=== PATIENT | male | born 1960 | race African-American/Black ===

== ENCOUNTER 2016-08-25 10:46 | Emergency (ER) | payer OTHER ==
[2016-08-25 10:56] VITALS: BP 156/91; PULSE 69; TEMP 99.4; BMI 25.0
[2016-08-25 11:55] LABS: BASOPHIL 0.4 % (0-2.0); EOSINOPHIL 0.5 % (0-4.5); MCH 27.8 pg (25.7-33.7); MCHC 32.6 g/dl (32.0-35.9); MEAN CELL VOLUME 85.4 fl (80-96); MEAN PLT VOLUME 9.1 fl (7.5-11.1); NEUTROPHILS 54.7 % (42.8-82.8); PLATELET COUNT 209 K/MM3 (134-434); RDW 15.8 % (11.9-15.9); WHITE BLOOD COUNT 5.3 K/mm3 (4.0-10.0)
[2016-08-25 12:08] LABS: INR 1.14 (0.82-1.09); PROTHROMBIN TIME (PATIENT) 12.6 SEC (9.98-11.88)
[2016-08-25 12:51] LABS: ALK PHOS 132 U/L (45-117); ANION GAP 7 (8-16); BILIRUBIN,TOTAL 0.6 mg/dL (0.2-1.0); CALCIUM 9.5 mg/dL (8.5-10.1); CO2 32 mmol/L (21-32); COCKROFT - GAULT 86.09; CREATININE 0.9 mg/dL (0.7-1.3); GLUCOSE,RANDOM 73 mg/dL (74-106); SGOT/AST 24 U/L (15-37); SGPT/ALT 23 U/L (12-78); TOT PROT 7.2 g/dl (6.4-8.2)
--- NOTE | 2016-08-25 12:54 | PDOC ---
History of Present Illness - General History Source: Patient Exam Limitations: No Limitations - History of Present Illness Initial Comments: 08/25/16 13:01 The patient is a 56 year old male, with a significant past medical history of Asthma, COPD, HTN, who presents to the emergency department with rectal bleeding since yesterday. The patient reports bright red blood after straining yesterday. Patient admits he was prescribed Colace however has not been compliant. He denies any abdominal pain, headache, chest pain or dizziness. He denies fever, chills, nausea, vomit, diarrhea. He denies dysuria, frequency, urgency or hematuria. Allergies: NKA Past surgical history: Denies Social history: Current everyday smoker PCP: Dr. Talley <Kymberly Matute - Last Filed: 08/25/16 13:02> <Camille Hills - Last Filed: 08/25/16 18:41> - General Chief Complaint: Rectal Bleed Stated Complaint: RECTAL BLEEDING Time Seen by Provider: 08/25/16 11:17 Past History <Kymberly Matute - Last Filed: 08/25/16 13:02> - Past Medical History Anemia: No Asthma: Yes Cancer: No Cardiac Disorders: No CVA: No COPD: Yes DVT: No Dementia: No Diabetes: No Dialysis: No GI Disorders: No Disorders: No HTN: Yes Hypercholesterolemia: No HIV: No Kidney Stones: No Liver Disease: No Psychiatric Problems: No Seizures: No Thyroid Disease: No Lung CA: No - Surgical History Abdominal Surgery: No Appendectomy: No Cardiac Surgery: No Cholecystectomy: No Gastric Stapling: No GI Surgery: No Lung Surgery: No Neurologic Surgery: No Orthopedic Surgery: Yes (broken jaw 2010) - Psycho/Social/Smoking Cessation Hx Suicidal Ideation: No Smoking History: Current every day smoker Have you smoked in the past 12 months: Yes Number of Cigarettes Smoked Daily: 20 Information on smoking cessation initiated: Yes 'Breaking Loose' booklet given: 08/25/16 Hx Alcohol Use: Yes (SOCIAL) Drug/Substance Use Hx: No Substance Use Type: None Hx Substance Use Treatment: Yes (rehab, [facility]) <Camille Hills - Last Filed: 08/25/16 18:41> - Past Medical History Allergies/Adverse Reactions: Allergies Allergy/AdvReac Type Severity Reaction Status Date / Time No Known Allergies Allergy Verified 08/25/16 10:55 Home Medications: Ambulatory Orders Citalopram Hydrobromide [Celexa -] 20 mg PO DAILY 03/28/14 Ergocalciferol [Drisdol -] 50,000 unit PO Q7D@1000 03/28/14 Fluticasone Propionate [Flovent Diskus] 250 mcg IH DAILY 03/28/14 Methadone [Dolophine -] 20 mg PO DAILY 03/28/14 Oxycodone HCl/Acetaminophen [Percocet 10-325 mg Tablet -] 1 tab PO BID 03/28/14 Cyclobenzaprine HCl [Flexeril -] 10 mg PO HS PRN 06/05/14 Docusate Sodium [Colace -] 100 mg PO BID #60 capsule 08/25/16 Hydrocortisone Acetate [Anusol Hc Suppository -] 25 mg RC BID #28 supp.rect Sennosides [Senna] 8.6 mg PO HS #14 tablet 08/25/16 Review of Systems - Review of Systems Able to Perform ROS?: Yes Comments:: 08/25/16 13:01 GENERAL/CONSTITUTIONAL: No fever or chills. No weakness. HEAD, EYES, EARS, NOSE AND THROAT: No change in vision. No ear pain or discharge. No sore throat. CARDIOVASCULAR: No chest pain or shortness of breath. RESPIRATORY: No cough, wheezing, or hemoptysis. GASTROINTESTINAL: + constipation. + rectal bleeding. No nausea, vomiting, diarrhea. GENITOURINARY: No dysuria, frequency, or change in urination. MUSCULOSKELETAL: No joint or muscle swelling or pain. No neck or back pain. SKIN: No rash NEUROLOGIC: No headache, vertigo, loss of consciousness, or change in strength/ sensation. ENDOCRINE: No increased thirst. No abnormal weight change. HEMATOLOGIC/LYMPHATIC: No anemia, easy bleeding, or history of blood clots. ALLERGIC/IMMUNOLOGIC: No hives or skin allergy. <Kymberly Matute - Last Filed: 08/25/16 13:02> *Physical Exam - Vital Signs Last Vital Signs Temp Pulse Resp BP Pulse Ox 99.4 F 69 20 156/91 96 08/25/16 10:52 08/25/16 10:52 08/25/16 10:52 08/25/16 10:52 08/25/16 10:52 <Kymberly Matute - Last Filed: 08/25/16 13:02> - Vital Signs Last Vital Signs Temp Pulse Resp BP Pulse Ox 99.4 F 69 20 156/91 96 08/25/16 10:52 08/25/16 10:52 08/25/16 10:52 08/25/16 10:52 08/25/16 10:52 - Physical Exam Comments: GENERAL: Awake, alert, and fully oriented, in no acute distress HEAD: No signs of trauma EYES: PERRLA, EOMI, sclera anicteric, conjunctiva clear ENT: Auricles normal inspection, hearing grossly normal, nares patent, oropharynx clear without exudates. Moist mucosa NECK: Normal ROM, supple, no lymphadenopathy, JVD, or masses LUNGS: Breath sounds equal, clear to auscultation bilaterally. No wheezes, and no crackles HEART: Regular rate and rhythm, normal S1 and S2, no murmurs, rubs or gallops ABDOMEN: Soft, nontender, normoactive bowel sounds. No guarding, no rebound. No masses EXTREMITIES: Normal range of motion, no edema. No clubbing or cyanosis. No cords, erythema, or tenderness NEUROLOGICAL: Cranial nerves II through XII grossly intact. Normal speech, normal gait SKIN: Warm, Dry, normal turgor, no rashes or lesions noted. RECTAL: +Internal hemorrhoid, nontender to palpation. Brown stool with streaks of red. <Camille Hills - Last Filed: 08/25/16 18:41> ED Treatment Course - LABORATORY CBC & Chemistry Diagram: 08/25/16 11:40 08/25/16 11:40 - ADDITIONAL ORDERS Additional order review: Laboratory Results 08/25/16 08/25/16 08/25/16 11:40 11:40 11:40 INR Sodium 141 Potassium 4.5 Chloride 102 Carbon Dioxide 32 Anion Gap 7 L BUN 9 Creatinine 0.9 Creat Clearance w eGFR > 60 Random Glucose 73 L D Calcium 9.5 Total Bilirubin 0.6 AST 24 ALT 23 Alkaline Phosphatase 132 H D Total Protein 7.2 Albumin 4.0 Stool Occult Blood Positive Blood Type O POSITIVE Antibody Screen Negative 08/25/16 11:40 INR 1.14 Sodium Potassium Chloride Carbon Dioxide Anion Gap BUN Creatinine Creat Clearance w eGFR Random Glucose Calcium Total Bilirubin AST ALT Alkaline Phosphatase Total Protein Albumin Stool Occult Blood Blood Type Antibody Screen 08/25/16 11:40 RBC 4.90 MCV 85.4 MCHC 32.6 RDW 15.8 MPV 9.1 Neutrophils % 54.7 Lymphocytes % 33.6 D Monocytes % 10.8 H Eosinophils % 0.5 D Basophils % 0.4 D <Kymberly Matute - Last Filed: 08/25/16 13:02> - LABORATORY CBC & Chemistry Diagram: 08/25/16 11:40 08/25/16 11:40 - ADDITIONAL ORDERS Additional order review: Laboratory Results 08/25/16 08/25/16 08/25/16 11:40 11:40 11:40 INR 1.14 Stool Occult Blood Positive Blood Type O POSITIVE Antibody Screen Negative 08/25/16 11:40 RBC 4.90 MCV 85.4 MCHC 32.6 RDW 15.8 MPV 9.1 Neutrophils % 54.7 Lymphocytes % 33.6 D Monocytes % 10.8 H Eosinophils % 0.5 D Basophils % 0.4 D <Camille Hills - Last Filed: 08/25/16 18:41> Medical Decision Making - Medical Decision Making H&H is stable, noted to have hemorrhoid on exam. Stable for DC home with outpatient f/u. <Camille Hills - Last Filed: 08/25/16 18:41> *DC/Admit/Observation/Transfer - Attestations Scribe Attestion: 08/25/16 13:01 Documentation prepared by Kymberly Matute, acting as certified medical asst for Camille Hills MD <Kymberly Matute - Last Filed: 08/25/16 13:02> - Discharge Dispostion Admit: No <Camille Hills - Last Filed: 08/25/16 18:41> Diagnosis at time of Disposition: Hemorrhoid - Discharge Dispostion Disposition: HOME Condition at time of disposition: Stable - Prescriptions Prescriptions: Hydrocortisone Acetate [Anusol Hc Suppository -] 25 mg RC BID #28 supp.rect Docusate Sodium [Colace -] 100 mg PO BID #60 capsule Sennosides [Senna] 8.6 mg PO HS #14 tablet - Referrals Referrals: Jose Daniel Cueto MD [Staff Physician] - - Patient Instructions Printed Discharge Instructions: DI for Hemorrhoids
== END 2016-08-25 13:30 | disposition home or self-care (01) ==
LOC: JER 10:46
DX: K64.9 Unspecified hemorrhoids (principal); J45.909 Unspecified asthma, uncomplicated; J44.9 Chronic obstructive pulmonary disease, unspecified; I10 Essential (primary) hypertension; F17.210 Nicotine dependence, cigarettes, uncomplicated
CPT/HCPCS: 36415; 80053; 82272; 85025; 85610; 86850; 86900; 86901; 99283-25

== ENCOUNTER 2018-05-23 12:36 | Emergency (ER) | payer OTHER ==
[2018-05-23 13:26] VITALS: BP 134/60; PULSE 106; TEMP 99.2; BMI 62.2
--- NOTE | 2018-05-23 15:04 | PDOC ---
History of Present Illness - General Chief Complaint: Edema Stated Complaint: SWOLLEN LEG Time Seen by Provider: 05/23/18 14:40 - History of Present Illness Initial Comments: Timothy Dinh is a 58yo man with a PMH of COPD and HTN, currently on methadone , current smoker, who presents with bilateral lower extremity edema over the past week. He states that it has been about the same since starting, though the left leg seems slightly less swollen and the right seems a little worse. He reports that he did not notice any inciting event. He has not had chest pain, worsening SOB, or injury. He has not traveled recently, has no history of blood clots, no recent surgery or immobilization, and no personal history of cancer. He has some sharp pain in both legs after standing for a long period of time, but this is equal bilaterally. Mr Dinh is not aware of any heart failure or kidney problems, though he does admit that he has not been to a primary doctor in over a year. He sees Dr Irwin occasionally for management of his COPD. Mr Dinh has been trying to elevate his legs in the evenings without much improvement in the leg swelling. He has not tried compression, and he is not on any diuretics. He is not sure whether he has been eating more salty food than normal. He denies fevers/chills, drainage from his legs, or wounds. Past History - Past Medical History Allergies/Adverse Reactions: Allergies Allergy/AdvReac Type Severity Reaction Status Date / Time No Known Allergies Allergy Verified 05/23/18 13:23 Home Medications: Ambulatory Orders Methadone [Dolophine -] 20 mg PO DAILY 03/28/14 Docusate Sodium [Colace -] 100 mg PO BID #60 capsule 08/25/16 Sennosides [Senna] 8.6 mg PO HS #14 tablet 08/25/16 Citalopram Hydrobromide [Celexa -] 20 mg PO DAILY #30 tablet 03/29/18 Quetiapine Fumarate [Seroquel -] 50 mg PO HS #30 tablet 03/29/18 Fluticasone Prop 0.05% Nasal [Flonase -] 1 - 2 spray NS DAILY 05/23/18 Anemia: No Asthma: Yes Cancer: No Cardiac Disorders: No CVA: No COPD: Yes DVT: No Dementia: No Diabetes: No Dialysis: No GI Disorders: No Disorders: No HTN: Yes Hypercholesterolemia: No Kidney Stones: No Liver Disease: No Psychiatric Problems: No Seizures: No Thyroid Disease: No Lung CA: No - Surgical History Abdominal Surgery: No Appendectomy: No Cardiac Surgery: No Cholecystectomy: No Gastric Stapling: No GI Surgery: No Lung Surgery: No Neurologic Surgery: No Orthopedic Surgery: Yes (broken jaw 2010) - Suicide/Smoking/Psychosocial Hx Smoking History: Current some day smoker Have you smoked in the past 12 months: Yes Number of Cigarettes Smoked Daily: 4 Information on smoking cessation initiated: Yes 'Breaking Loose' booklet given: 08/25/16 Hx Alcohol Use: Yes (SOCIAL) Drug/Substance Use Hx: No Substance Use Type: None Hx Substance Use Treatment: Yes (rehab, [facility]) Review of Systems - Review of Systems Comments:: General: No fevers, no chills, no weight or appetite change, no malaise HEENT: No changes in vision, no changes in hearing, no congestion, no sore throat CV: No chest pain, no palpitations, +BLE edema Pulm: +COPD, +chronic SOB unchanged GI: No nausea or vomiting, no change in bowel habits (+chronic constipation), no melena : No frequency, no urgency, no dysuria Musc: No back pain, no joint swelling, no recent injury Skin: No rash, no lesions, no erythema Endo: No excessive thirst, no heat/cold intolerance Heme: No unusual bruising or bleeding, no swollen glands Neuro: No syncope, no numbness/tingling, no focal weakness Vasc: No claudication Psych: No recent change in mood, no SI or HI *Physical Exam - Vital Signs Last Vital Signs Temp Pulse Resp BP Pulse Ox 99.2 F 106 H 20 134/60 99 05/23/18 13:23 05/23/18 13:23 05/23/18 13:23 05/23/18 13:23 05/23/18 13:23 - Physical Exam Comments: General: Comfortable, no acute distress HEENT: PERRL, EOMI, MMM, voice normal, normal neck ROM, no LAD Cards: RRR, no murmur appreciated Pulm: Comfortable on room air. Diffuse wheezing bilaterally Abd: Nontender, obese/protuberant, firm along midline : No CVA tenderness Ext: Atraumatic. BLE 3+ pitting edema, R>L. Mild erythema c/w edema but no significant warmth, no drainage, no sign of infection Vasc: Extremities WWP. Palpable radial and pedal pulses bilaterally Neuro: A&Ox3, CN grossly intact, normal speech, motor/sensory grossly intact and symmetric Psych: Mood appropriate to situation Moderate Sedation - Procedure Monitoring Vital Signs: Procedure Monitoring Vital Signs Temperature 99.2 F 05/23/18 13:23 Pulse Rate 106 H 05/23/18 13:23 Respiratory Rate 20 05/23/18 13:23 Blood Pressure 134/60 05/23/18 13:23 O2 Sat by Pulse Oximetry (%) 99 05/23/18 13:23 ED Treatment Course - LABORATORY CBC & Chemistry Diagram: 05/23/18 16:05 05/23/18 16:05 Medical Decision Making - Medical Decision Making 05/23/18 14:58 Timothy Dinh is a 58yo man with a PMH of COPD/asthma (current smoker), HTN, on methadone who presents with new BLE edema that started about a week ago. - No associated symptoms. No known CHF or kidney failure. No symptoms indicating ACS as a cause of new heart problems. No fevers/chills, or s/s of infection suggesting cellulitis. - Will evaluate for ACS, CHF - CBC, chemistry, EKG, trop, BNP, CXR - Diffuse wheezing on exam, reportedly chronic, will give duonebs to treat symptoms 05/23/18 17:14 - Labs reviewed. Notable for BNP 1400 - EKG completed. NSR, HR 95. Atrial enlargement w/ prominent p, notched p- waves. Biphasic t-wave in V3. - Will give 40mg IV lasix to start diuresis 05/23/18 18:18 - CXR reviewed. No acute changes compared to 4mo ago - Continued wheezing, giving additional duonebs q15min - Will microblog for admission for additional diuresis and CHF workup 05/23/18 19:05 Patient signed out to Dr Ascencio for remainder of ED care. Discussed with Dr Ly. Fern Harikns PGY1 *DC/Admit/Observation/Transfer Diagnosis at time of Disposition: COPD (chronic obstructive pulmonary disease), Bilateral lower extremity edema - Discharge Dispostion Decision to Admit order: Yes - Referrals - Patient Instructions - Post Discharge Activity
[2018-05-23] MEDS ORDERED: ALBUTEROL SO4 2.5/IPRATROPIUM 0.5 INH SOL 3 ML VIAL.NEB. NEB ONE ×2 (15:09→19:10)
[2018-05-23 16:51] LABS: ALBUMIN 2.5 g/dl (3.4-5.0); ALK PHOS 137 U/L (45-117); ANION GAP 1 MMOL/L (8-16); BILIRUBIN,TOTAL 0.4 mg/dL (0.2-1); BLOOD UREA NITROGEN 11 mg/dL (7-18); CHLORIDE 101 mmol/L (98-107); CO2 38 mmol/L (21-32); CREATININE 0.8 mg/dL (0.55-1.3); GLUCOSE,RANDOM 116 mg/dL (74-106); N-TERMINAL BNP 1492.6 pg/ml (5-125); PHOSPHOROUS 3.7 mg/dL (2.5-4.9); SGPT/ALT 33 U/L (13-61); SODIUM 140 mmol/L (136-145); TOT PROT 5.4 g/dl (6.4-8.2)
[2018-05-23 16:52] LABS: MAGNESIUM 2.1 mg/dL (1.8-2.4); POTASSIUM 4.8 mmol/L (3.5-5.1); SGOT/AST 28 U/L (15-37)
[2018-05-23 16:59] LABS: BASO % 0.8 % (0-2.0); EOS % 0.9 % (0-4.5); HEMOGLOBIN 14.4 GM/dL (11.7-16.9); LYMPH % 24.4 % (8-40); MCH 28.9 pg (25.7-33.7); MCHC 32.7 g/dl (32.0-35.9); MEAN CELL VOLUME 88.4 fl (80-96); MEAN PLT VOLUME 8.9 fl (7.5-11.1); NEUT % 61.9 % (42.8-82.8); PLATELET COUNT 237 K/MM3 (134-434); RBC 4.97 M/mm3 (4.00-5.60); RDW 16.5 % (11.9-15.9); WHITE BLOOD COUNT 5.3 K/mm3 (4.0-10.0)
[2018-05-23 17:11] LABS: URINE APPEARANCE CLEAR; URINE BILIRUBIN NEGATIVE (<2.0 mg/dL); URINE COLOR LTYELLOW; URINE GLUCOSE (UA) NEGATIVE (NEGATIVE); URINE KETONE NEGATIVE (NEGATIVE); URINE LEUK ESTERASE NEGATIVE (NEGATIVE); URINE NITRITE NEGATIVE (NEGATIVE); URINE PROTEIN NEGATIVE (NEGATIVE); URINE UROBILINOGEN NEGATIVE mg/dL (0.2-1.0)
--- NOTE | 2018-05-23 17:14 | PDOC ---
Attending Attestation - HPI HPI: 05/23/18 17:42 Mr. Dinh is a 58 year old male with past medical history significant for COPD presents to the emergency department with swelling to the feet. The patient presents with bilateral lower extremity edema for the past one week. The patient reports elevating the legs, without relief. Denies hx of CHF or kidney issues. The patient reports hes currently on COPD medication and methadone. - Physicial Exam PE: 05/23/18 19:09 Vitals: Triage Vital signs reviewed Cardiac: Regular rate and rhythm, no murmurs, no rubs, no gallops, Lungs: +diffuse inspiratory and expiratory wheezing. Extremities: +3+ pitting edema B/L. Full range of motion to all extremities, no cyanosis, clubbing. - Medical Decision Making 05/23/18 17:42 Documentation prepared by Destinee Urrutia, acting as medical examiner for Tarun Ly MD. <Destinee Urrutia - Last Filed: 05/23/18 19:09> - Resident Resident Name: Fern Harkins - ED Attending Attestation I have performed the following: I have examined & evaluated the patient, The case was reviewed & discussed with the resident, I agree w/resident's findings & plan, Exceptions are as noted - HPI HPI: 05/23/18 19:22 58 years old noncompliant with COPD management medications presents to the ED with one-week history of lower extremity edema and shortness of breath History and examination was notable for elevated BNP consistent with CHF and COPD exacerbation given the patient is not have primary care follow-up as noncompliant with medications recommendation was for diuresis and observation overnight. Patient was initially agreeable with plan but appears to have since eloped from the hospital. We have checked the emergency department 3 times for the patient we have called him at home with no answer and PD was called given that patient eloped with IV in place Charge nurse aware. <Tarun Ly - Last Filed: 05/23/18 19:23>
[2018-05-23] MEDS ORDERED: ALBUTEROL SO4 2.5/IPRATROPIUM 0.5 INH SOL 3 ML VIAL.NEB. NEB SCH (18:30)
--- NOTE | 2018-05-23 19:29 | PN ---
Teaching Attending Note Was to be admitted but eloped prior to bed assignment and discussion with residents
--- NOTE | 2018-05-24 11:09 | EKG ---
Test Reason : Blood Pressure : / mmHG Vent. Rate : 095 BPM Atrial Rate : 095 BPM P-R Int : 114 ms QRS Dur : 068 ms QT Int : 370 ms P-R-T Axes : 063 092 054 degrees QTc Int : 464 ms NORMAL SINUS RHYTHM POSSIBLE LEFT ATRIAL ENLARGEMENT RIGHTWARD AXIS NONSPECIFIC T WAVE ABNORMALITY PROLONGED QT ABNORMAL ECG WHEN COMPARED WITH ECG OF 28-JUN-2013 15:25, NON-SPECIFIC CHANGE IN ST SEGMENT IN ANTERIOR LEADS NONSPECIFIC T WAVE ABNORMALITY NOW EVIDENT IN INFERIOR LEADS T WAVE INVERSION NOW EVIDENT IN ANTERIOR LEADS Confirmed by NOLA CORTEZ MD ([id number]) on 05/24/2018 11:09:28 AM Referred By: Confirmed By:NOLA CORTEZ MD
== END 2018-05-23 19:21 | disposition left against medical advice (07) ==
LOC: JER 12:36
DX: J44.9 Chronic obstructive pulmonary disease, unspecified (principal); R60.0 Localized edema; I10 Essential (primary) hypertension; F11.20 Opioid dependence, uncomplicated; F17.210 Nicotine dependence, cigarettes, uncomplicated
CPT/HCPCS: 36415; 71046-TC-FY; 80053; 81003; 82550; 82553; 83735; 83880; 84100; 84484; 85025; 93005; 93010; 99282-25

== ENCOUNTER 2018-05-29 13:04 | Inpatient (IN) | payer OTHER ==
--- NOTE | 2018-05-29 14:01 | PDOC ---
History of Present Illness - General Chief Complaint: Edema Stated Complaint: R/O DVT Time Seen by Provider: 05/29/18 13:50 History Source: Patient - History of Present Illness Initial Comments: 05/29/18 14:02 The patient is a 58 year old male with a PMH of COPD (on 3L NC @ home), heroin abuse (on methadone, last use 5 years previous) who presents to our ED c/o 3 week h/o B/L LE swelling. Denies tenderness to palpation and pain with ambulation. Denies any recent injury, fevers/chills, shortness of breath as well as recent travel. No recent medication changes. States he was in our hospital previously for evaluation however he left because an IV was placed but no medication was given through the IV. The patient denies chest pain, abdominal pain, nausea/vomiting, diarrhea/ constipation, dysuria/hematuria. NKDA As per EMR, patient evaluated on 05/23/18 for B/L LE edema and LBME with an IV in place. Past History - Past Medical History Allergies/Adverse Reactions: Allergies Allergy/AdvReac Type Severity Reaction Status Date / Time No Known Allergies Allergy Verified 05/29/18 13:15 Home Medications: Ambulatory Orders Methadone [Dolophine -] 30 mg PO DAILY 03/28/14 Sennosides [Senna] 8.6 mg PO HS #14 tablet 08/25/16 Citalopram Hydrobromide [Celexa -] 20 mg PO DAILY #30 tablet 03/29/18 Quetiapine Fumarate [Seroquel -] 50 mg PO HS #30 tablet 03/29/18 Fluticasone Prop 0.05% Nasal [Flonase -] 1 - 2 spray NS DAILY 05/23/18 Anemia: No Asthma: Yes Cancer: No Cardiac Disorders: No CVA: No COPD: Yes DVT: No Dementia: No Diabetes: No Dialysis: No GI Disorders: No Disorders: No HTN: Yes Hypercholesterolemia: No Kidney Stones: No Liver Disease: No Psychiatric Problems: No Seizures: No Thyroid Disease: No Lung CA: No - Surgical History Abdominal Surgery: No Appendectomy: No Cardiac Surgery: No Cholecystectomy: No Gastric Stapling: No GI Surgery: No Lung Surgery: No Neurologic Surgery: No Orthopedic Surgery: Yes (broken jaw 2010) - Immunization History Immunization Up to Date: Yes - Suicide/Smoking/Psychosocial Hx Smoking History: Current every day smoker Have you smoked in the past 12 months: Yes Number of Cigarettes Smoked Daily: 10 Information on smoking cessation initiated: No 'Breaking Loose' booklet given: 08/25/16 Hx Alcohol Use: No Drug/Substance Use Hx: No Substance Use Type: None Hx Substance Use Treatment: Yes (rehab, [facility]) Review of Systems - Review of Systems Constitutional: No: Chills, Fever HEENTM: No: Recent change in vision Respiratory: Yes: Shortness of Breath ((baseline)). No: Cough Cardiac (ROS): No: Chest Pain, Lightheadedness, Palpitations, Syncope ABD/GI: No: Constipated, Diarrhea, Nausea, Vomiting : No: Burning, Dysuria *Physical Exam - Vital Signs Last Vital Signs Temp Pulse Resp BP Pulse Ox 99.2 F 104 H 16 142/76 76 L 05/29/18 13:15 05/29/18 13:15 05/29/18 13:15 05/29/18 13:15 05/29/18 13:15 - Physical Exam General Appearance: Yes: Nourished, Appropriately Dressed HEENT: positive: Normal Voice, Hearing Grossly Normal Neck: positive: Trachea midline, Supple Respiratory/Chest: positive: Lungs Clear, Normal Breath Sounds Cardiovascular: positive: S1, S2, Other (B/L LE 3+ edema; RLE erythema from ankle to mid calf) Vascular Pulses: Dorsalis-Pedis (R): 2+, Doralis-Pedis (L): 2+ Gastrointestinal/Abdominal: positive: Normal Bowel Sounds, Soft Extremity: positive: Normal Capillary Refill, Erythema Neurologic: positive: tobacco stemmer machine II-XII NML intact, Fully Oriented, Alert Moderate Sedation - Procedure Monitoring Vital Signs: Procedure Monitoring Vital Signs Temperature 99.2 F 05/29/18 13:15 Pulse Rate 104 H 05/29/18 13:15 Respiratory Rate 16 05/29/18 13:15 Blood Pressure 142/76 05/29/18 13:15 O2 Sat by Pulse Oximetry (%) 76 L 05/29/18 13:15 ED Treatment Course - LABORATORY CBC & Chemistry Diagram: 05/29/18 14:03 05/29/18 14:03 Medical Decision Making - Medical Decision Making 05/29/18 14:38 58 year old male with 3+ B/L LE edema. RLE edema concerning for cellulitis. Hypoxic (SpO2 70's) and tachycardic (HR 104) @ presentation. Repeat VS ( patient on home O2): SpO2 95%, HR 94. Other VS unremarkable. Clinical suspicion for cellulitis, also consider DVT, compartment syndrome. Will obtain VBG to r/o hypercapnic retention. Duplex, labs, blood cultures pending. Prophylactic antibiotic treatment for cellulitis w/Vanc, Zosysn to cover MRSA and Pseudomonas. 05/29/18 15:01 ID @ bedside - reccomends lower extremity CT to evaluate for deep tissue infection; possible etiology is nail bed which are nidus for infection 2/2 to onnchymosis 05/29/18 15:16 Mild hypercapnea (CO@ 65.4) VSS on 2L O2 NC DVT study negative 05/29/18 15:23 CBC shows no leukocytosis BNP 1257 (1492 on 05/23) CT pending Will page hospitalist for admission 05/29/18 15:26 My read of CXR shows no cardiomegaly, normal costophrenic angles, no consolidation/infiltrate 05/29/18 17:24 Case d/w Dr. Hess. Agrees w/inpatient admission for IV antibiotics Patient reassessed @ bedside. Resting comfortably Counseled on plan of care, amenable to admission. *DC/Admit/Observation/Transfer Diagnosis at time of Disposition: Cellulitis - Discharge Dispostion Condition at time of disposition: Fair Decision to Admit order: Yes - Referrals - Patient Instructions - Post Discharge Activity
[2018-05-29 14:33] LABS: VENOUS PC02 65.4 mmHg (41-51); VENOUS PH 7.37 (7.31-7.41); VENOUS PO2 84.3 mmHg (30-40)
[2018-05-29 14:35] LABS: BASO % 0.8 % (0-2.0); EOS % 0.6 % (0-4.5); HEMATOCRIT 43.8 % (35.4-49); HEMOGLOBIN 14.5 GM/dL (11.7-16.9); MCH 29.1 pg (25.7-33.7); MCHC 33.1 g/dl (32.0-35.9); MEAN CELL VOLUME 87.9 fl (80-96); MEAN PLT VOLUME 8.9 fl (7.5-11.1); MONO % 8.9 % (3.8-10.2); NEUT % 64.7 % (42.8-82.8); PLATELET COUNT 208 K/MM3 (134-434); RBC 4.98 M/mm3 (4.00-5.60); RDW 16.8 % (11.9-15.9); WHITE BLOOD COUNT 5.4 K/mm3 (4.0-10.0)
[2018-05-29 14:49] LABS: INR 1.14 (0.83-1.09); PROTHROMBIN TIME (PATIENT) 13.5 SEC (9.7-13.0)
[2018-05-29 14:51] LABS: ACTIVATED PTT 33.4 SECONDS (25.2-36.5)
[2018-05-29] MEDS ORDERED: PIPERACILLIN/TAZOB 4.5 GM 4.5 GM in DEXTROSE 5%-WATER 100 ML IVPB ONE (15:01)
[2018-05-29] MEDS ORDERED: VANCOMYCIN 1,000 MG in DEXTROSE 5%-WATER - 250 ML IVPB ONE (15:01)
--- NOTE | 2018-05-29 15:04 | CON.ID ---
Consult Consult Specialty:: infectious diseases Referred by:: grace Bello Reason for Consultation:: cellulitis of the rt leg - History of Present Illness Chief Complaint: pain and swelling of the rt leg History of Present Illness: 58 year old male with a PMH of COPD (on 3L NC @ home), heroin abuse (on methadone, last use 5 years previous) who presents to our ED c/o 3 week h/o B/L LE swelling. Denies tenderness to palpation and pain with ambulation. Denies any recent injury, fevers/chills, shortness of breath as well as recent travel. No recent medication changes. States he was in our hospital previously for evaluation however he left because an IV was placed but no medication was given through the IV. patient does not know how the swelling started but he did not go to the hospital and finally he said it would not go away and decided to come to the hospital patient does not look to be in much distressed but the leg looks swollen and erythematous denies any other symptoms - History Source History Provided By: Patient, Medical Record Limitations to Obtaining History: No Limitations - Past Medical History Pulmonary: Yes: Asthma - Past Surgical History Past Surgical History: Yes: None - Alcohol/Substance Use Hx Alcohol Use: No History of Substance Use: reports: Heroin (quit 1 year ago, now on methadone program) - Smoking History Smoking history: Current every day smoker Have you smoked in the past 12 months: Yes Aproximately how many cigarettes per day: 10 - Social History Usual Living Arrangement: Alone ADL: Independent Occupation: previously did auto body work and [employer] History of Recent Travel: No Home Medications - Allergies Allergies/Adverse Reactions: Allergies Allergy/AdvReac Type Severity Reaction Status Date / Time No Known Allergies Allergy Verified 05/29/18 13:15 - Home Medications Home Medications: Ambulatory Orders Methadone [Dolophine -] 30 mg PO DAILY 03/28/14 Sennosides [Senna] 8.6 mg PO HS #14 tablet 08/25/16 RX: Citalopram Hydrobromide [Celexa -] 20 mg PO DAILY #30 tablet 03/29/18 RX: Quetiapine Fumarate [Seroquel -] 50 mg PO HS #30 tablet 03/29/18 Fluticasone Prop 0.05% Nasal [Flonase -] 1 - 2 spray NS DAILY 05/23/18 Review of Systems - Review of Systems Constitutional: reports: No Symptoms Eyes: reports: No Symptoms HENT: reports: No Symptoms Neck: reports: No Symptoms Cardiovascular: reports: No Symptoms Respiratory: reports: No Symptoms Gastrointestinal: reports: No Symptoms Genitourinary: reports: No Symptoms Musculoskeletal: reports: Muscle Pain, Other Integumentary: reports: Change in Color, Erythema Neurological: reports: No Symptoms Endocrine: reports: No Symptoms Hematology/Lymphatic: reports: No Symptoms Psychiatric: reports: No Symptoms Physical Exam Vital Signs: Vital Signs Temperature 99.2 F 05/29/18 13:15 Pulse Rate 104 H 05/29/18 13:15 Respiratory Rate 16 05/29/18 13:15 Blood Pressure 142/76 05/29/18 13:15 O2 Sat by Pulse Oximetry (%) 99 05/29/18 14:12 Constitutional: Yes: Well Nourished, No Distress, Calm Eyes: Yes: Conjunctiva Clear Cardiovascular: Yes: Regular Rate and Rhythm Respiratory: Yes: Regular, CTA Bilaterally Gastrointestinal: Yes: Normal Bowel Sounds, Soft Musculoskeletal: Yes: WNL Extremities: Yes: Other Integumentary: Yes: Erythema, Other (swelling of the rt leg) Neurological: Yes: Alert, Oriented Psychiatric: Yes: Alert, Oriented Labs: CBC, BMP 05/29/18 14:03 Imaging - Results Chest X-ray: Report Reviewed, Image Reviewed Assessment/Plan Problem List - Problems (1) Hepatitis C carrier Code(s): Z22.52 - (2) Bilateral lower extremity edema Code(s): R60.0 - LOCALIZED EDEMA (3) COPD (chronic obstructive pulmonary disease) Code(s): J44.9 - CHRONIC OBSTRUCTIVE PULMONARY DISEASE, UNSPECIFIED 4 cellulits b/l ext rt more than left plan will start patient on abx get a ct scan of the leg close watch on the patient rest as per the team
[2018-05-29] MEDS ORDERED: VANCOMYCIN 1 GRAM (PRE-DOCKED) 1,000 MG/250 ML BAG IVPB ONE (15:08)
[2018-05-29] MEDS ORDERED: PIPERACILLIN/TAZOB 4.5 GM 4.5 GM/100 ML BAG IVPB ONE (15:08)
--- NOTE | 2018-05-29 15:19 | PDOC ---
Attending Attestation - Resident Resident Name: LeoQuiana - ED Attending Attestation I have performed the following: I have examined & evaluated the patient, The case was reviewed & discussed with the resident, I agree w/resident's findings & plan, Exceptions are as noted - HPI HPI: 05/29/18 16:09 The patient is a 58 year old male, with a significant past medical history of COPD (on 3L nasal cannula @ home), who presents to the emergency department with , RLE swelling with associated pain with ambulation. Patient was recently evaluated 05/23 for similar symptoms but eloped prior to admission. He denies any recent fevers, chills, headache or dizziness. He denies any recent nausea, vomit, diarrhea or constipation. He denies any recent chest pain or shortness of breath. He denies any recent dysuria, frequency, urgency or hematuria. Allergies: NKDA - Physicial Exam PE: 05/29/18 16:07 agree with resident exam - Medical Decision Making 05/29/18 15:19 58yo M with MMP including COPD on 2-3L O2, heroine abuse (last 1 year ago, on methadone) presents to the ED with R>L LE edema. On exam, significant erythema and induration noted to RLE concerning for cellulitis. On arrival to ED, pt noted to be hypoxic to 76%, but was off nasal cannula at the time. Pt satting low 90s on 2L NC. Plan to check US to r/o DVT, labs, admit for IV abx.
[2018-05-29 15:20] LABS: ALBUMIN 2.7 g/dl (3.4-5.0); ALK PHOS 141 U/L (45-117); ANION GAP 2 MMOL/L (8-16); BILIRUBIN,TOTAL 0.5 mg/dL (0.2-1); BLOOD UREA NITROGEN 9 mg/dL (7-18); CALCIUM 8.4 mg/dL (8.5-10.1); CHLORIDE 101 mmol/L (98-107); CO2 38 mmol/L (21-32); CREATININE 0.8 mg/dL (0.55-1.3); GLUCOSE,RANDOM 93 mg/dL (74-106); MAGNESIUM 2.1 mg/dL (1.8-2.4); POTASSIUM 4.4 mmol/L (3.5-5.1); SGOT/AST 25 U/L (15-37); SGPT/ALT 25 U/L (13-61); SODIUM 141 mmol/L (136-145); TOT PROT 5.8 g/dl (6.4-8.2)
--- NOTE | 2018-05-29 19:19 | HP ---
Admitting History and Physical - Primary Care Physician PCP: Renato Hess - Admission History of Present Illness: 58 year old male with a PMH of COPD (on 3L NC @ home), heroin abuse (on methadone, last use 5 years previous) who presents to our ED c/o 3 week h/o B/L LE swelling. Denies tenderness to palpation and pain with ambulation. Denies any recent injury, fevers/chills, shortness of breath as well as recent travel. No recent medication changes. States he was in our hospital previously for evaluation however he left because an IV was placed but no medication was given through the IV. 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 [employer] History of Recent Travel: No Home Medications - Allergies Allergies/Adverse Reactions: Allergies Allergy/AdvReac Type Severity Reaction Status Date / Time No Known Allergies Allergy Verified 05/29/18 13:15 - Home Medications Home Medications: Ambulatory Orders Methadone [Dolophine -] 30 mg PO DAILY 03/28/14 Sennosides [Senna] 8.6 mg PO HS #14 tablet 08/25/16 Citalopram Hydrobromide [Celexa -] 20 mg PO DAILY #30 tablet 03/29/18 Quetiapine Fumarate [Seroquel -] 50 mg PO HS #30 tablet 03/29/18 Fluticasone Prop 0.05% Nasal [Flonase -] 1 - 2 spray NS DAILY 05/23/18 Physical Examination Vital Signs: Vital Signs Temperature 99.2 F 05/29/18 13:15 Pulse Rate 67 05/29/18 18:07 Respiratory Rate 20 05/29/18 18:07 Blood Pressure 124/65 05/29/18 18:07 O2 Sat by Pulse Oximetry (%) 96 05/29/18 18:07 Constitutional: Yes: No Distress HENT: Yes: Atraumatic Neck: Yes: Supple Cardiovascular: Yes: Regular Rate and Rhythm Respiratory: Yes: CTA Bilaterally Gastrointestinal: Yes: Normal Bowel Sounds Extremities: Yes: Other (b/l seven warm , red and tender) Edema: Yes Edema: LLE: 1+, RLE: 1+ Neurological: Yes: Alert, Oriented Labs: CBC, BMP 05/29/18 14:03 05/29/18 14:03 Imaging - Results Cat Scan: Report Reviewed Ultrasound: Report Reviewed Problem List - Problems (1) Hepatitis C carrier Code(s): Z22.52 - (2) Bilateral lower extremity edema Code(s): R60.0 - LOCALIZED EDEMA (3) COPD (chronic obstructive pulmonary disease) Assessment/Plan: stable Code(s): J44.9 - CHRONIC OBSTRUCTIVE PULMONARY DISEASE, UNSPECIFIED (4) Cellulitis Assessment/Plan: b/llex on ov abx id consult Code(s): L03.90 - CELLULITIS, UNSPECIFIED Assessment/Plan Laboratory Tests 05/29/18 05/29/18 05/29/18 14:03 14:03 14:03 WBC 5.4 RBC 4.98 Hgb 14.5 Hct 43.8 MCV 87.9 MCH 29.1 MCHC 33.1 RDW 16.8 H Plt Count 208 MPV 8.9 Absolute Neuts (auto) 3.5 Neutrophils % 64.7 Lymphocytes % 25.0 Monocytes % 8.9 Eosinophils % 0.6 Basophils % 0.8 Nucleated RBC % 0 PT with INR INR PTT (Actin FS) VBG pH 7.37 POC VBG pCO2 65.4 H POC VBG pO2 84.3 H VBG HCO3 37.1 H VBG O2 Sat (Arturo) 96.8 H VBG Base Excess 9.5 H Sodium 141 Potassium 4.4 Chloride 101 Carbon Dioxide 38 H Anion Gap 2 L BUN 9 Creatinine 0.8 Creat Clearance w eGFR 98.61 Random Glucose 93 Calcium 8.4 L Magnesium 2.1 Total Bilirubin 0.5 AST 25 ALT 25 Alkaline Phosphatase 141 H Troponin I < 0.02 B-Natriuretic Peptide 1257.0 H Total Protein 5.8 L Albumin 2.7 L 05/29/18 05/29/18 14:03 14:03 WBC RBC Hgb Hct MCV MCH MCHC RDW Plt Count MPV Absolute Neuts (auto) Neutrophils % Lymphocytes % Monocytes % Eosinophils % Basophils % Nucleated RBC % PT with INR 13.50 H INR 1.14 H PTT (Actin FS) 33.4 VBG pH POC VBG pCO2 POC VBG pO2 VBG HCO3 VBG O2 Sat (Arturo) VBG Base Excess Sodium Potassium Chloride Carbon Dioxide Anion Gap BUN Creatinine Creat Clearance w eGFR Random Glucose Calcium Magnesium Cancelled Total Bilirubin AST ALT Alkaline Phosphatase Troponin I Cancelled B-Natriuretic Peptide Total Protein Albumin Active Medications Generic Name Dose Route Start Last Admin Trade Name Gemma PRN Reason Stop Dose Admin Piperacillin Sod/Tazobactam 50 mls @ 100 mls/hr 05/29/18 20:00 Sod 3.375 gm/ Dextrose IVPB Q8H-IV JANENE Protocol Active Medications Generic Name Dose Route Start Last Admin Trade Name Gemma PRN Reason Stop Dose Admin Acetaminophen 650 mg 05/29/18 19:23 Tylenol - PO Q6H PRN FEVER Citalopram Hydrobromide 20 mg 05/30/18 10:00 05/30/18 09:43 Celexa - PO 20 mg DAILY JANENE Administration Heparin Sodium (Porcine) 5,000 unit 05/29/18 22:00 05/30/18 09:43 Heparin - SQ 5,000 unit BID JANENE Administration Piperacillin Sod/Tazobactam 50 mls @ 100 mls/hr 05/29/18 20:00 05/30/18 09:43 Sod 3.375 gm/ Dextrose IVPB 100 mls/hr Q8H-IV JANENE Administration Protocol Methadone HCl 30 mg 05/30/18 09:00 05/30/18 09:42 Dolophine - PO 30 mg DAILY@0600 JANENE Administration Quetiapine Fumarate 50 mg 05/29/18 22:00 05/29/18 21:46 Seroquel - PO 50 mg HS JANENE Administration Senna 2 tab 05/29/18 22:00 05/29/18 21:46 Senna - PO 2 tab HS JANENE Administration
[2018-05-29] MEDS ORDERED: ACETAMINOPHEN 325 MG TABLET (FP) PO PRN (19:23)
[2018-05-29] MEDS ORDERED: DEXTROSE 5%-WATER - 50 ML IVPB ONE (19:56)
[2018-05-29] MEDS ORDERED: PIPERACILLIN/TAZOBACTAM 3.375 GM VIAL IVPB ONE (19:56)
[2018-05-29] MEDS ORDERED: PIPERACILLIN/TAZOB 3.375 GM 3.375 GM in DEXTROSE 5%-WATER - 50 ML IVPB SCH (20:00)
[2018-05-29] MEDS: PIPERACILLIN/TAZOB 3.375 GM 3.375 GM in DEXTROSE 5%-WATER - 50 ML IVPB SCH (20:02)
[2018-05-29] MEDS ORDERED: PT OWN MED DRAWER 7, Y5N ONE (21:41)
[2018-05-29] MEDS ORDERED: QUEtiapine FUMARATE 25 MG TABLET (FP) ONE (21:45)
[2018-05-29] MEDS: QUEtiapine FUMARATE 50 MG TABLET PO SCH (21:46)
[2018-05-29] MEDS: SENNOSIDES 8.6MG TABLET (FP) PO SCH (21:46)
[2018-05-29] MEDS: HEPARIN NA (PORCINE) 5,000 UNITS/ML 1ML VIAL SQ SCH (21:46)
[2018-05-29 23:43] VITALS: BMI 25.9
[2018-05-30] MEDS ORDERED: PIPERACILLIN/TAZOBACTAM 3.375 GM VIAL IVPB ONE ×3 (02:33→17:25)
[2018-05-30] MEDS ORDERED: DEXTROSE 5%-WATER - 50 ML IVPB ONE ×3 (02:34→17:25)
[2018-05-30] MEDS: PIPERACILLIN/TAZOB 3.375 GM 3.375 GM in DEXTROSE 5%-WATER - 50 ML IVPB SCH ×3 (02:41→17:36)
[2018-05-30] MEDS: METHADONE HCL 10 MG TABLET PO SCH (09:42)
[2018-05-30] MEDS: HEPARIN NA (PORCINE) 5,000 UNITS/ML 1ML VIAL SQ SCH ×2 (09:43→21:48)
[2018-05-30] MEDS: CITALOPRAM HYDROBROMIDE 20 MG TABLET (FP) PO SCH (09:43)
--- NOTE | 2018-05-30 13:11 | PN ---
Progress Note, Physician History of Present Illness: leg starting to looks better swelling better erythema better still paiful and swollen though - Current Medication List Current Medications: Active Medications Acetaminophen (Tylenol -) 650 mg PO Q6H PRN PRN Reason: FEVER Citalopram Hydrobromide (Celexa -) 20 mg PO DAILY [facility] Last Admin: 05/30/18 09:43 Dose: 20 mg Heparin Sodium (Porcine) (Heparin -) 5,000 unit SQ BID [facility] Last Admin: 05/30/18 09:43 Dose: 5,000 unit Piperacillin Sod/Tazobactam (Sod 3.375 gm/ Dextrose) 50 mls @ 100 mls/hr IVPB Q8H-IV JANENE; Protocol Last Admin: 05/30/18 09:43 Dose: 100 mls/hr Methadone HCl (Dolophine -) 30 mg PO DAILY@0600 [facility] Last Admin: 05/30/18 09:42 Dose: 30 mg Quetiapine Fumarate (Seroquel -) 50 mg PO [facility] Last Admin: 05/29/18 21:46 Dose: 50 mg Senna (Senna -) 2 tab PO [facility] Last Admin: 05/29/18 21:46 Dose: 2 tab - Objective Vital Signs: Vital Signs Temperature 98.6 F 05/30/18 06:00 Pulse Rate 72 05/30/18 06:00 Respiratory Rate 20 05/30/18 06:00 Blood Pressure 153/96 05/30/18 06:00 O2 Sat by Pulse Oximetry (%) 94 L 05/29/18 20:00 Constitutional: Yes: No Distress, Calm Cardiovascular: Yes: Regular Rate and Rhythm Respiratory: Yes: Regular, CTA Bilaterally Gastrointestinal: Yes: Normal Bowel Sounds, Soft Musculoskeletal: Yes: WNL Extremities: Yes: Erythema (of the leg) Neurological: Yes: Alert, Oriented Psychiatric: Yes: Alert, Oriented Labs: CBC, BMP 05/29/18 14:03 05/29/18 14:03 INR, PTT INR 1.14 (0.83-1.09) H 05/29/18 14:03 - ....Imaging Cat Scan: Report Reviewed, Image Reviewed Assessment/Plan Problem List - Problems (1) Hepatitis C carrier Code(s): Z22.52 - (2) Bilateral lower extremity edema Code(s): R60.0 - LOCALIZED EDEMA (3) COPD (chronic obstructive pulmonary disease) Code(s): J44.9 - CHRONIC OBSTRUCTIVE PULMONARY DISEASE, UNSPECIFIED 4 cellulits b/l ext rt more than left plan continue abx ct scan results noted elevation of the leg rest as per the team
--- NOTE | 2018-05-30 17:11 | PN ---
Progress Note, Physician History of Present Illness: doing well - Current Medication List Current Medications: Active Medications Acetaminophen (Tylenol -) 650 mg PO Q6H PRN PRN Reason: FEVER Citalopram Hydrobromide (Celexa -) 20 mg PO DAILY [facility] Last Admin: 05/30/18 09:43 Dose: 20 mg Heparin Sodium (Porcine) (Heparin -) 5,000 unit SQ BID [facility] Last Admin: 05/30/18 09:43 Dose: 5,000 unit Piperacillin Sod/Tazobactam (Sod 3.375 gm/ Dextrose) 50 mls @ 100 mls/hr IVPB Q8H-IV JANENE; Protocol Last Admin: 05/30/18 09:43 Dose: 100 mls/hr Methadone HCl (Dolophine -) 30 mg PO DAILY@0600 [facility] Last Admin: 05/30/18 09:42 Dose: 30 mg Quetiapine Fumarate (Seroquel -) 50 mg PO [facility] Last Admin: 05/29/18 21:46 Dose: 50 mg Senna (Senna -) 2 tab PO [facility] Last Admin: 05/29/18 21:46 Dose: 2 tab - Objective Vital Signs: Vital Signs Temperature 9.6 F L 05/30/18 10:00 Pulse Rate 88 05/30/18 10:00 Respiratory Rate 20 05/30/18 10:00 Blood Pressure 147/86 05/30/18 10:00 O2 Sat by Pulse Oximetry (%) 93 L 05/30/18 09:00 Constitutional: Yes: No Distress HENT: Yes: Atraumatic Neck: Yes: Supple Cardiovascular: Yes: Regular Rate and Rhythm Respiratory: Yes: CTA Bilaterally Gastrointestinal: Yes: Normal Bowel Sounds Extremities: Yes: Other ( cellulitis b/l seven) Edema: Yes Edema: LLE: 1+, RLE: 1+ Neurological: Yes: Alert, Oriented Labs: CBC, BMP 05/29/18 14:03 05/29/18 14:03 INR, PTT INR 1.14 (0.83-1.09) H 05/29/18 14:03 Problem List - Problems (1) Hepatitis C carrier Code(s): Z22.52 - (2) Bilateral lower extremity edema Code(s): R60.0 - LOCALIZED EDEMA (3) COPD (chronic obstructive pulmonary disease) Assessment/Plan: stable Code(s): J44.9 - CHRONIC OBSTRUCTIVE PULMONARY DISEASE, UNSPECIFIED (4) Cellulitis Assessment/Plan: b/llex on ov abx id consult Code(s): L03.90 - CELLULITIS, UNSPECIFIED
[2018-05-30] MEDS ORDERED: QUEtiapine FUMARATE 25 MG TABLET (FP) ONE (20:41)
[2018-05-30] MEDS: QUEtiapine FUMARATE 50 MG TABLET PO SCH (21:47)
[2018-05-30] MEDS: SENNOSIDES 8.6MG TABLET (FP) PO SCH (21:47)
[2018-05-31] MEDS ORDERED: DEXTROSE 5%-WATER - 50 ML IVPB ONE ×3 (00:10→17:44)
[2018-05-31] MEDS ORDERED: PIPERACILLIN/TAZOBACTAM 3.375 GM VIAL IVPB ONE ×3 (00:10→17:44)
[2018-05-31] MEDS: PIPERACILLIN/TAZOB 3.375 GM 3.375 GM in DEXTROSE 5%-WATER - 50 ML IVPB SCH ×3 (01:25→19:08)
[2018-05-31] MEDS: METHADONE HCL 10 MG TABLET PO SCH (06:17)
[2018-05-31] MEDS: HEPARIN NA (PORCINE) 5,000 UNITS/ML 1ML VIAL SQ SCH ×2 (09:54→21:49)
[2018-05-31] MEDS: CITALOPRAM HYDROBROMIDE 20 MG TABLET (FP) PO SCH (09:55)
--- NOTE | 2018-05-31 11:39 | PN ---
Progress Note, Physician History of Present Illness: patient doing well no new issues leg has started improving redness improved - Current Medication List Current Medications: Active Medications Acetaminophen (Tylenol -) 650 mg PO Q6H PRN PRN Reason: FEVER Citalopram Hydrobromide (Celexa -) 20 mg PO DAILY [facility] Last Admin: 05/31/18 09:55 Dose: 20 mg Heparin Sodium (Porcine) (Heparin -) 5,000 unit SQ BID [facility] Last Admin: 05/31/18 09:54 Dose: 5,000 unit Piperacillin Sod/Tazobactam (Sod 3.375 gm/ Dextrose) 50 mls @ 100 mls/hr IVPB Q8H-IV JANENE; Protocol Last Admin: 05/31/18 09:55 Dose: 100 mls/hr Methadone HCl (Dolophine -) 30 mg PO DAILY@0600 [facility] Last Admin: 05/31/18 06:17 Dose: 30 mg Quetiapine Fumarate (Seroquel -) 50 mg PO [facility] Last Admin: 05/30/18 21:47 Dose: 50 mg Senna (Senna -) 2 tab PO [facility] Last Admin: 05/30/18 21:47 Dose: Not Given - Objective Vital Signs: Vital Signs Temperature 98.3 F 05/30/18 19:04 Pulse Rate 79 05/30/18 19:04 Respiratory Rate 20 05/30/18 19:04 Blood Pressure 144/78 05/30/18 19:04 O2 Sat by Pulse Oximetry (%) 95 05/30/18 21:00 Constitutional: Yes: No Distress, Calm Cardiovascular: Yes: Regular Rate and Rhythm Respiratory: Yes: Regular, CTA Bilaterally Gastrointestinal: Yes: Normal Bowel Sounds, Soft Musculoskeletal: Yes: WNL Extremities: Yes: Erythema (improving) Neurological: Yes: Alert, Oriented Psychiatric: Yes: Alert, Oriented Labs: CBC, BMP 05/29/18 14:03 05/29/18 14:03 INR, PTT INR 1.14 (0.83-1.09) H 05/29/18 14:03 Assessment/Plan Problem List - Problems (1) Hepatitis C carrier Code(s): Z22.52 - (2) Bilateral lower extremity edema Code(s): R60.0 - LOCALIZED EDEMA (3) COPD (chronic obstructive pulmonary disease) Code(s): J44.9 - CHRONIC OBSTRUCTIVE PULMONARY DISEASE, UNSPECIFIED 4 cellulits b/l ext rt more than left plan continue abx ct scan results noted elevation of the leg rest as per the team
--- NOTE | 2018-05-31 18:08 | PN ---
Progress Note, Physician History of Present Illness: doing well - Current Medication List Current Medications: Active Medications Acetaminophen (Tylenol -) 650 mg PO Q6H PRN PRN Reason: FEVER Citalopram Hydrobromide (Celexa -) 20 mg PO DAILY [facility] Last Admin: 05/31/18 09:55 Dose: 20 mg Heparin Sodium (Porcine) (Heparin -) 5,000 unit SQ BID [facility] Last Admin: 05/31/18 09:54 Dose: 5,000 unit Piperacillin Sod/Tazobactam (Sod 3.375 gm/ Dextrose) 50 mls @ 100 mls/hr IVPB Q8H-IV JANENE; Protocol Last Admin: 05/31/18 09:55 Dose: 100 mls/hr Methadone HCl (Dolophine -) 30 mg PO DAILY@0600 [facility] Last Admin: 05/31/18 06:17 Dose: 30 mg Quetiapine Fumarate (Seroquel -) 50 mg PO [facility] Last Admin: 05/30/18 21:47 Dose: 50 mg Senna (Senna -) 2 tab PO [facility] Last Admin: 05/30/18 21:47 Dose: Not Given - Objective Vital Signs: Vital Signs Temperature 98 F 05/31/18 16:20 Pulse Rate 71 05/31/18 16:20 Respiratory Rate 18 05/31/18 16:20 Blood Pressure 126/82 05/31/18 16:20 O2 Sat by Pulse Oximetry (%) 95 05/30/18 21:00 Constitutional: Yes: No Distress HENT: Yes: Atraumatic Neck: Yes: Supple Cardiovascular: Yes: Regular Rate and Rhythm Respiratory: Yes: CTA Bilaterally Gastrointestinal: Yes: Normal Bowel Sounds Extremities: Yes: Other (cellulitis b/l seven) Neurological: Yes: Alert, Oriented Labs: CBC, BMP 05/29/18 14:03 05/29/18 14:03 INR, PTT INR 1.14 (0.83-1.09) H 05/29/18 14:03 Problem List - Problems (1) Hepatitis C carrier Code(s): Z22.52 - (2) Bilateral lower extremity edema Code(s): R60.0 - LOCALIZED EDEMA (3) COPD (chronic obstructive pulmonary disease) Assessment/Plan: stable Code(s): J44.9 - CHRONIC OBSTRUCTIVE PULMONARY DISEASE, UNSPECIFIED (4) Cellulitis Assessment/Plan: b/llex on Iv abx id consult Code(s): L03.90 - CELLULITIS, UNSPECIFIED
[2018-05-31] MEDS ORDERED: PT OWN MED DRAWER 7, Y5N ONE (21:27)
[2018-05-31] MEDS ORDERED: QUEtiapine FUMARATE 25 MG TABLET (FP) ONE (21:46)
[2018-05-31] MEDS: QUEtiapine FUMARATE 50 MG TABLET PO SCH (21:50)
[2018-05-31] MEDS: SENNOSIDES 8.6MG TABLET (FP) PO SCH (21:50)
[2018-06-01] MEDS ORDERED: DEXTROSE 5%-WATER - 50 ML IVPB ONE ×3 (01:39→17:07)
[2018-06-01] MEDS ORDERED: PIPERACILLIN/TAZOBACTAM 3.375 GM VIAL IVPB ONE ×3 (01:39→17:07)
[2018-06-01] MEDS: PIPERACILLIN/TAZOB 3.375 GM 3.375 GM in DEXTROSE 5%-WATER - 50 ML IVPB SCH ×3 (01:54→18:13)
[2018-06-01] MEDS: METHADONE HCL 10 MG TABLET PO SCH (05:57)
--- NOTE | 2018-06-01 10:30 | PN ---
Progress Note, Physician History of Present Illness: patient doing well swelling of the leg much better erythema much better - Current Medication List Current Medications: Active Medications Acetaminophen (Tylenol -) 650 mg PO Q6H PRN PRN Reason: FEVER Citalopram Hydrobromide (Celexa -) 20 mg PO DAILY [facility] Last Admin: 05/31/18 09:55 Dose: 20 mg Heparin Sodium (Porcine) (Heparin -) 5,000 unit SQ BID [facility] Last Admin: 05/31/18 21:49 Dose: 5,000 unit Piperacillin Sod/Tazobactam (Sod 3.375 gm/ Dextrose) 50 mls @ 100 mls/hr IVPB Q8H-IV JANENE; Protocol Last Admin: 06/01/18 01:54 Dose: 100 mls/hr Methadone HCl (Dolophine -) 30 mg PO DAILY@0600 [facility] Last Admin: 06/01/18 05:57 Dose: 30 mg Quetiapine Fumarate (Seroquel -) 50 mg PO [facility] Last Admin: 05/31/18 21:50 Dose: 50 mg Senna (Senna -) 2 tab PO [facility] Last Admin: 05/31/18 21:50 Dose: 2 tab - Objective Vital Signs: Vital Signs Temperature 98.4 F 06/01/18 06:57 Pulse Rate 68 06/01/18 06:57 Respiratory Rate 18 06/01/18 06:57 Blood Pressure 150/77 06/01/18 06:57 O2 Sat by Pulse Oximetry (%) 95 05/31/18 21:00 Constitutional: Yes: No Distress, Calm Cardiovascular: Yes: Regular Rate and Rhythm Respiratory: Yes: Regular, CTA Bilaterally Gastrointestinal: Yes: Normal Bowel Sounds, Soft Musculoskeletal: Yes: WNL Extremities: Yes: Other Neurological: Yes: Alert, Oriented Psychiatric: Yes: Alert, Oriented Labs: CBC, BMP 05/29/18 14:03 05/29/18 14:03 INR, PTT INR 1.14 (0.83-1.09) H 05/29/18 14:03 Assessment/Plan Problem List - Problems (1) Hepatitis C carrier Code(s): Z22.52 - (2) Bilateral lower extremity edema Code(s): R60.0 - LOCALIZED EDEMA (3) COPD (chronic obstructive pulmonary disease) Code(s): J44.9 - CHRONIC OBSTRUCTIVE PULMONARY DISEASE, UNSPECIFIED 4 cellulits b/l ext rt more than left plan continue abx ct scan results noted elevation of the leg rest as per the team if patients leg looks good tomorrow will switch to oral abx
[2018-06-01] MEDS: CITALOPRAM HYDROBROMIDE 20 MG TABLET (FP) PO SCH (10:55)
[2018-06-01] MEDS: HEPARIN NA (PORCINE) 5,000 UNITS/ML 1ML VIAL SQ SCH ×2 (10:55→21:44)
--- NOTE | 2018-06-01 16:14 | PN ---
Progress Note, Physician History of Present Illness: doing well - Current Medication List Current Medications: Active Medications Acetaminophen (Tylenol -) 650 mg PO Q6H PRN PRN Reason: FEVER Citalopram Hydrobromide (Celexa -) 20 mg PO DAILY [facility] Last Admin: 06/01/18 10:55 Dose: 20 mg Heparin Sodium (Porcine) (Heparin -) 5,000 unit SQ BID [facility] Last Admin: 06/01/18 10:55 Dose: 5,000 unit Piperacillin Sod/Tazobactam (Sod 3.375 gm/ Dextrose) 50 mls @ 100 mls/hr IVPB Q8H-IV JANENE; Protocol Last Admin: 06/01/18 10:58 Dose: 100 mls/hr Methadone HCl (Dolophine -) 30 mg PO DAILY@0600 [facility] Last Admin: 06/01/18 05:57 Dose: 30 mg Quetiapine Fumarate (Seroquel -) 50 mg PO [facility] Last Admin: 05/31/18 21:50 Dose: 50 mg Senna (Senna -) 2 tab PO [facility] Last Admin: 05/31/18 21:50 Dose: 2 tab - Objective Vital Signs: Vital Signs Temperature 98.7 F 06/01/18 14:00 Pulse Rate 71 06/01/18 14:00 Respiratory Rate 18 06/01/18 14:00 Blood Pressure 127/70 06/01/18 14:00 O2 Sat by Pulse Oximetry (%) 95 05/31/18 21:00 Constitutional: Yes: No Distress HENT: Yes: Atraumatic Neck: Yes: Supple Cardiovascular: Yes: Regular Rate and Rhythm Respiratory: Yes: CTA Bilaterally Gastrointestinal: Yes: Normal Bowel Sounds Extremities: Yes: Other (B/L AMELIA CELLULITIS) Neurological: Yes: Alert, Oriented Labs: CBC, BMP 05/29/18 14:03 05/29/18 14:03 INR, PTT INR 1.14 (0.83-1.09) H 05/29/18 14:03 Problem List - Problems (1) Hepatitis C carrier Code(s): Z22.52 - (2) Bilateral lower extremity edema Code(s): R60.0 - LOCALIZED EDEMA (3) COPD (chronic obstructive pulmonary disease) Assessment/Plan: stable Code(s): J44.9 - CHRONIC OBSTRUCTIVE PULMONARY DISEASE, UNSPECIFIED (4) Cellulitis Assessment/Plan: b/llex on Iv abx id consult Code(s): L03.90 - CELLULITIS, UNSPECIFIED
[2018-06-01] MEDS ORDERED: QUEtiapine FUMARATE 25 MG TABLET (FP) ONE (20:28)
[2018-06-01] MEDS: QUEtiapine FUMARATE 50 MG TABLET PO SCH (21:41)
[2018-06-01] MEDS: SENNOSIDES 8.6MG TABLET (FP) PO SCH (21:41)
[2018-06-02] MEDS ORDERED: PIPERACILLIN/TAZOBACTAM 3.375 GM VIAL IVPB ONE ×4 (00:05→23:50)
[2018-06-02] MEDS ORDERED: DEXTROSE 5%-WATER - 50 ML IVPB ONE ×4 (00:05→23:50)
[2018-06-02] MEDS: PIPERACILLIN/TAZOB 3.375 GM 3.375 GM in DEXTROSE 5%-WATER - 50 ML IVPB SCH ×3 (01:21→18:00)
[2018-06-02] MEDS: METHADONE HCL 10 MG TABLET PO SCH (06:16)
[2018-06-02] MEDS: HEPARIN NA (PORCINE) 5,000 UNITS/ML 1ML VIAL SQ SCH ×2 (10:16→21:29)
[2018-06-02] MEDS: CITALOPRAM HYDROBROMIDE 20 MG TABLET (FP) PO SCH (10:17)
--- NOTE | 2018-06-02 11:34 | PN ---
Progress Note, Physician History of Present Illness: patients leg still swollen redness has decreased but still present has not cleared yet - Current Medication List Current Medications: Active Medications Acetaminophen (Tylenol -) 650 mg PO Q6H PRN PRN Reason: FEVER Citalopram Hydrobromide (Celexa -) 20 mg PO DAILY [facility] Last Admin: 06/02/18 10:17 Dose: 20 mg Heparin Sodium (Porcine) (Heparin -) 5,000 unit SQ BID [facility] Last Admin: 06/02/18 10:16 Dose: 5,000 unit Piperacillin Sod/Tazobactam (Sod 3.375 gm/ Dextrose) 50 mls @ 100 mls/hr IVPB Q8H-IV [facility]; Protocol Last Admin: 06/02/18 10:15 Dose: 100 mls/hr Methadone HCl (Dolophine -) 30 mg PO DAILY@0600 [facility] Last Admin: 06/02/18 06:16 Dose: 30 mg Quetiapine Fumarate (Seroquel -) 50 mg PO [facility] Last Admin: 06/01/18 21:41 Dose: 50 mg Senna (Senna -) 2 tab PO [facility] Last Admin: 06/01/18 21:41 Dose: 2 tab - Objective Vital Signs: Vital Signs Temperature 98.5 F 06/02/18 06:00 Pulse Rate 68 06/02/18 06:00 Respiratory Rate 18 06/02/18 06:00 Blood Pressure 142/85 06/02/18 06:00 O2 Sat by Pulse Oximetry (%) 96 06/01/18 21:00 Constitutional: Yes: No Distress, Calm Cardiovascular: Yes: Regular Rate and Rhythm Respiratory: Yes: Regular, CTA Bilaterally Gastrointestinal: Yes: Normal Bowel Sounds, Soft Musculoskeletal: Yes: WNL Extremities: Yes: Erythema, Other (swelling) Edema: LLE: 1+ Neurological: Yes: Alert, Oriented Psychiatric: Yes: Alert, Oriented Labs: CBC, BMP 05/29/18 14:03 05/29/18 14:03 INR, PTT INR 1.14 (0.83-1.09) H 05/29/18 14:03 Assessment/Plan Problem List - Problems (1) Hepatitis C carrier Code(s): Z22.52 - (2) Bilateral lower extremity edema Code(s): R60.0 - LOCALIZED EDEMA (3) COPD (chronic obstructive pulmonary disease) Code(s): J44.9 - CHRONIC OBSTRUCTIVE PULMONARY DISEASE, UNSPECIFIED 4 cellulits b/l ext rt more than left plan continue abx ct scan results noted elevation of the leg rest as per the team still not improved needs to continue iv for now will add oral clinda
[2018-06-02] MEDS: CLINDAMYCIN HCL 150 MG CAPSULE (FP) PO SCH ×2 (14:04→18:00)
--- NOTE | 2018-06-02 18:05 | PN ---
Progress Note, Physician - Current Medication List Current Medications: Active Medications Acetaminophen (Tylenol -) 650 mg PO Q6H PRN PRN Reason: FEVER Citalopram Hydrobromide (Celexa -) 20 mg PO DAILY [facility] Last Admin: 06/02/18 10:17 Dose: 20 mg Clindamycin HCl (Cleocin -) 300 mg PO Q6HPO [facility] Last Admin: 06/02/18 18:00 Dose: 300 mg Heparin Sodium (Porcine) (Heparin -) 5,000 unit SQ BID [facility] Last Admin: 06/02/18 10:16 Dose: 5,000 unit Piperacillin Sod/Tazobactam (Sod 3.375 gm/ Dextrose) 50 mls @ 100 mls/hr IVPB Q8H-IV [facility]; Protocol Last Admin: 06/02/18 18:00 Dose: 100 mls/hr Methadone HCl (Dolophine -) 30 mg PO DAILY@0600 [facility] Last Admin: 06/02/18 06:16 Dose: 30 mg Quetiapine Fumarate (Seroquel -) 50 mg PO HS [facility] Last Admin: 06/01/18 21:41 Dose: 50 mg Senna (Senna -) 2 tab PO [facility] Last Admin: 06/01/18 21:41 Dose: 2 tab - Objective Vital Signs: Vital Signs Temperature 98.4 F 06/02/18 16:20 Pulse Rate 77 06/02/18 16:20 Respiratory Rate 18 06/02/18 16:20 Blood Pressure 125/62 06/02/18 16:20 O2 Sat by Pulse Oximetry (%) 94 L 06/02/18 09:00 Constitutional: Yes: No Distress HENT: Yes: Atraumatic Neck: Yes: Supple Cardiovascular: Yes: Regular Rate and Rhythm Respiratory: Yes: CTA Bilaterally Gastrointestinal: Yes: Normal Bowel Sounds Extremities: Yes: WNL Edema: No Peripheral Pulses WNL: Yes Neurological: Yes: Alert, Oriented Labs: CBC, BMP 05/29/18 14:03 05/29/18 14:03 INR, PTT INR 1.14 (0.83-1.09) H 05/29/18 14:03 Problem List - Problems (1) Hepatitis C carrier Code(s): Z22.52 - (2) Bilateral lower extremity edema Code(s): R60.0 - LOCALIZED EDEMA (3) COPD (chronic obstructive pulmonary disease) Assessment/Plan: stable Code(s): J44.9 - CHRONIC OBSTRUCTIVE PULMONARY DISEASE, UNSPECIFIED (4) Cellulitis Assessment/Plan: b/llex on Iv abx id consult Code(s): L03.90 - CELLULITIS, UNSPECIFIED
[2018-06-02] MEDS ORDERED: QUEtiapine FUMARATE 25 MG TABLET (FP) ONE (20:57)
[2018-06-02] MEDS: QUEtiapine FUMARATE 50 MG TABLET PO SCH (21:30)
[2018-06-02] MEDS: SENNOSIDES 8.6MG TABLET (FP) PO SCH (21:31)
[2018-06-03] MEDS: CLINDAMYCIN HCL 150 MG CAPSULE (FP) PO SCH ×4 (00:10→18:00)
[2018-06-03] MEDS: PIPERACILLIN/TAZOB 3.375 GM 3.375 GM in DEXTROSE 5%-WATER - 50 ML IVPB SCH ×3 (01:23→17:59)
[2018-06-03] MEDS: METHADONE HCL 10 MG TABLET PO SCH (06:27)
[2018-06-03] MEDS ORDERED: DEXTROSE 5%-WATER - 50 ML IVPB ONE ×2 (08:50→17:54)
[2018-06-03] MEDS ORDERED: PIPERACILLIN/TAZOBACTAM 3.375 GM VIAL IVPB ONE ×2 (08:50→17:53)
[2018-06-03] MEDS: CITALOPRAM HYDROBROMIDE 20 MG TABLET (FP) PO SCH (10:18)
[2018-06-03] MEDS: HEPARIN NA (PORCINE) 5,000 UNITS/ML 1ML VIAL SQ SCH ×2 (10:19→22:01)
[2018-06-03] MEDS ORDERED: PT OWN MED DRAWER 7, Y5N ONE (10:32)
--- NOTE | 2018-06-03 15:06 | PN ---
Progress Note, Physician History of Present Illness: improving swelling decreasing redness improving - Current Medication List Current Medications: Active Medications Acetaminophen (Tylenol -) 650 mg PO Q6H PRN PRN Reason: FEVER Citalopram Hydrobromide (Celexa -) 20 mg PO DAILY [facility] Last Admin: 06/03/18 10:18 Dose: 20 mg Clindamycin HCl (Cleocin -) 300 mg PO Q6HPO [facility] Last Admin: 06/03/18 12:32 Dose: 300 mg Heparin Sodium (Porcine) (Heparin -) 5,000 unit SQ BID [facility] Last Admin: 06/03/18 10:19 Dose: 5,000 unit Piperacillin Sod/Tazobactam (Sod 3.375 gm/ Dextrose) 50 mls @ 100 mls/hr IVPB Q8H-IV [facility]; Protocol Last Admin: 06/03/18 10:20 Dose: 100 mls/hr Methadone HCl (Dolophine -) 30 mg PO DAILY@0600 [facility] Last Admin: 06/03/18 06:27 Dose: 30 mg Quetiapine Fumarate (Seroquel -) 50 mg PO HS [facility] Last Admin: 06/02/18 21:30 Dose: 50 mg Senna (Senna -) 2 tab PO [facility] Last Admin: 06/02/18 21:31 Dose: Not Given - Objective Vital Signs: Vital Signs Temperature 98.9 F 06/03/18 10:00 Pulse Rate 86 06/03/18 10:00 Respiratory Rate 18 06/03/18 10:00 Blood Pressure 151/87 06/03/18 10:00 O2 Sat by Pulse Oximetry (%) 95 06/02/18 21:00 Constitutional: Yes: No Distress, Calm Neck: Yes: Supple Cardiovascular: Yes: Regular Rate and Rhythm Respiratory: Yes: Regular, CTA Bilaterally Gastrointestinal: Yes: Normal Bowel Sounds, Soft Musculoskeletal: Yes: Other Extremities: Yes: Other (swelling and redness) Neurological: Yes: Alert, Oriented Psychiatric: Yes: Alert Labs: CBC, BMP 05/29/18 14:03 05/29/18 14:03 INR, PTT INR 1.14 (0.83-1.09) H 05/29/18 14:03 Assessment/Plan Problem List - Problems (1) Hepatitis C carrier Code(s): Z22.52 - (2) Bilateral lower extremity edema Code(s): R60.0 - LOCALIZED EDEMA (3) COPD (chronic obstructive pulmonary disease) Code(s): J44.9 - CHRONIC OBSTRUCTIVE PULMONARY DISEASE, UNSPECIFIED 4 cellulits b/l ext rt more than left plan continue abx improving rest continue current mgmt elevation of the leg
--- NOTE | 2018-06-03 19:02 | PN ---
Progress Note, Physician - Current Medication List Current Medications: Active Medications Acetaminophen (Tylenol -) 650 mg PO Q6H PRN PRN Reason: FEVER Citalopram Hydrobromide (Celexa -) 20 mg PO DAILY [facility] Last Admin: 06/03/18 10:18 Dose: 20 mg Clindamycin HCl (Cleocin -) 300 mg PO Q6HPO [facility] Last Admin: 06/03/18 18:00 Dose: 300 mg Heparin Sodium (Porcine) (Heparin -) 5,000 unit SQ BID [facility] Last Admin: 06/03/18 10:19 Dose: 5,000 unit Piperacillin Sod/Tazobactam (Sod 3.375 gm/ Dextrose) 50 mls @ 100 mls/hr IVPB Q8H-IV [facility]; Protocol Last Admin: 06/03/18 17:59 Dose: 100 mls/hr Methadone HCl (Dolophine -) 30 mg PO DAILY@0600 [facility] Last Admin: 06/03/18 06:27 Dose: 30 mg Quetiapine Fumarate (Seroquel -) 50 mg PO HS [facility] Last Admin: 06/02/18 21:30 Dose: 50 mg Senna (Senna -) 2 tab PO [facility] Last Admin: 06/02/18 21:31 Dose: Not Given - Objective Vital Signs: Vital Signs Temperature 98.9 F 06/03/18 10:00 Pulse Rate 86 06/03/18 10:00 Respiratory Rate 18 06/03/18 10:00 Blood Pressure 151/87 06/03/18 10:00 O2 Sat by Pulse Oximetry (%) 95 06/02/18 21:00 HENT: Yes: Atraumatic Neck: Yes: Supple Cardiovascular: Yes: Regular Rate and Rhythm Respiratory: Yes: CTA Bilaterally Gastrointestinal: Yes: Normal Bowel Sounds Extremities: Yes: Other (cellulitis improving) Edema: Yes Edema: LLE: Trace, RLE: Trace Neurological: Yes: Alert, Oriented Labs: CBC, BMP 05/29/18 14:03 05/29/18 14:03 INR, PTT INR 1.14 (0.83-1.09) H 05/29/18 14:03 Problem List - Problems (1) Hepatitis C carrier Code(s): Z22.52 - (2) Bilateral lower extremity edema Code(s): R60.0 - LOCALIZED EDEMA (3) COPD (chronic obstructive pulmonary disease) Assessment/Plan: stable Code(s): J44.9 - CHRONIC OBSTRUCTIVE PULMONARY DISEASE, UNSPECIFIED (4) Cellulitis Assessment/Plan: b/llex on Iv abx id consult Code(s): L03.90 - CELLULITIS, UNSPECIFIED
[2018-06-03] MEDS ORDERED: BENZOCAINE/MENTH/CETYLPYRD CL 1 EACH LOZENGE MM PRN (19:56)
[2018-06-03] MEDS ORDERED: QUEtiapine FUMARATE 25 MG TABLET (FP) ONE (21:57)
[2018-06-03] MEDS: QUEtiapine FUMARATE 50 MG TABLET PO SCH (22:03)
[2018-06-03] MEDS: SENNOSIDES 8.6MG TABLET (FP) PO SCH (22:03)
[2018-06-04] MEDS: CLINDAMYCIN HCL 150 MG CAPSULE (FP) PO SCH ×4 (00:18→18:21)
[2018-06-04] MEDS ORDERED: PIPERACILLIN/TAZOBACTAM 3.375 GM VIAL IVPB ONE ×3 (01:33→17:56)
[2018-06-04] MEDS ORDERED: DEXTROSE 5%-WATER - 50 ML IVPB ONE ×3 (01:33→17:56)
[2018-06-04] MEDS: PIPERACILLIN/TAZOB 3.375 GM 3.375 GM in DEXTROSE 5%-WATER - 50 ML IVPB SCH ×3 (01:41→18:21)
[2018-06-04] MEDS: METHADONE HCL 10 MG TABLET PO SCH (05:57)
[2018-06-04] MEDS: CITALOPRAM HYDROBROMIDE 20 MG TABLET (FP) PO SCH (10:13)
[2018-06-04] MEDS: HEPARIN NA (PORCINE) 5,000 UNITS/ML 1ML VIAL SQ SCH ×2 (10:14→21:23)
--- NOTE | 2018-06-04 13:11 | PN ---
Progress Note, Physician History of Present Illness: patient stable erythema much better swelling much better - Current Medication List Current Medications: Active Medications Acetaminophen (Tylenol -) 650 mg PO Q6H PRN PRN Reason: FEVER Benzocaine/Menthol (Cepacol Lozenge -) 1 each MM Q4H PRN PRN Reason: SORE THROAT Last Admin: 06/03/18 22:03 Dose: 1 each Citalopram Hydrobromide (Celexa -) 20 mg PO DAILY [facility] Last Admin: 06/04/18 10:13 Dose: 20 mg Clindamycin HCl (Cleocin -) 300 mg PO Q6HPO [facility] Last Admin: 06/04/18 12:28 Dose: 300 mg Heparin Sodium (Porcine) (Heparin -) 5,000 unit SQ BID [facility] Last Admin: 06/04/18 10:14 Dose: 5,000 unit Piperacillin Sod/Tazobactam (Sod 3.375 gm/ Dextrose) 50 mls @ 100 mls/hr IVPB Q8H-IV [facility]; Protocol Last Admin: 06/04/18 10:14 Dose: 100 mls/hr Methadone HCl (Dolophine -) 30 mg PO DAILY@0600 [facility] Last Admin: 06/04/18 05:57 Dose: 30 mg Quetiapine Fumarate (Seroquel -) [address] [facility] Last Admin: 06/03/18 22:03 Dose: 50 mg Senna (Senna -) [address] [facility] Last Admin: 06/03/18 22:03 Dose: Not Given - Objective Vital Signs: Vital Signs Temperature 98.8 F 06/04/18 06:00 Pulse Rate 67 06/04/18 06:00 Respiratory Rate 20 06/04/18 06:00 Blood Pressure 156/83 06/04/18 06:00 O2 Sat by Pulse Oximetry (%) 95 06/02/18 21:00 Constitutional: Yes: No Distress, Calm Cardiovascular: Yes: Regular Rate and Rhythm Respiratory: Yes: Regular, CTA Bilaterally Gastrointestinal: Yes: Normal Bowel Sounds, Soft Musculoskeletal: Yes: WNL Extremities: Yes: Erythema (resolved), Other Neurological: Yes: Alert, Oriented Psychiatric: Yes: Alert, Oriented Labs: CBC, BMP 05/29/18 14:03 05/29/18 14:03 INR, PTT INR 1.14 (0.83-1.09) H 05/29/18 14:03 Assessment/Plan Problem List - Problems (1) Hepatitis C carrier Code(s): Z22.52 - (2) Bilateral lower extremity edema Code(s): R60.0 - LOCALIZED EDEMA (3) COPD (chronic obstructive pulmonary disease) Code(s): J44.9 - CHRONIC OBSTRUCTIVE PULMONARY DISEASE, UNSPECIFIED 4 cellulits b/l ext rt more than left plan continue abx will switch to oral tomorrow rest continue current mgmt elevation of the leg
--- NOTE | 2018-06-04 18:39 | PN ---
Progress Note, Physician History of Present Illness: doing well - Current Medication List Current Medications: Active Medications Acetaminophen (Tylenol -) 650 mg PO Q6H PRN PRN Reason: FEVER Benzocaine/Menthol (Cepacol Lozenge -) 1 each MM Q4H PRN PRN Reason: SORE THROAT Last Admin: 06/03/18 22:03 Dose: 1 each Citalopram Hydrobromide (Celexa -) 20 mg PO DAILY [facility] Last Admin: 06/04/18 10:13 Dose: 20 mg Clindamycin HCl (Cleocin -) 300 mg PO Q6HPO [facility] Last Admin: 06/04/18 18:21 Dose: 300 mg Heparin Sodium (Porcine) (Heparin -) 5,000 unit SQ BID [facility] Last Admin: 06/04/18 10:14 Dose: 5,000 unit Piperacillin Sod/Tazobactam (Sod 3.375 gm/ Dextrose) 50 mls @ 100 mls/hr IVPB Q8H-IV [facility]; Protocol Last Admin: 06/04/18 18:21 Dose: 100 mls/hr Methadone HCl (Dolophine -) 30 mg PO DAILY@0600 [facility] Last Admin: 06/04/18 05:57 Dose: 30 mg Quetiapine Fumarate (Seroquel -) 50 mg PO HS [facility] Last Admin: 06/03/18 22:03 Dose: 50 mg Senna (Senna -) 2 tab PO [facility] Last Admin: 06/03/18 22:03 Dose: Not Given - Objective Vital Signs: Vital Signs Temperature 98.8 F 06/04/18 10:00 Pulse Rate 88 06/04/18 10:00 Respiratory Rate 18 06/04/18 10:00 Blood Pressure 150/86 06/04/18 10:00 O2 Sat by Pulse Oximetry (%) 95 06/02/18 21:00 Constitutional: Yes: No Distress HENT: Yes: Atraumatic Neck: Yes: Supple Cardiovascular: Yes: Regular Rate and Rhythm Respiratory: Yes: CTA Bilaterally Gastrointestinal: Yes: Normal Bowel Sounds Extremities: Yes: Other (b/l seven cellulitis improving) Neurological: Yes: Alert, Oriented Labs: CBC, BMP 05/29/18 14:03 05/29/18 14:03 INR, PTT INR 1.14 (0.83-1.09) H 05/29/18 14:03 Problem List - Problems (1) Hepatitis C carrier Code(s): Z22.52 - (2) Bilateral lower extremity edema Code(s): R60.0 - LOCALIZED EDEMA (3) COPD (chronic obstructive pulmonary disease) Assessment/Plan: stable Code(s): J44.9 - CHRONIC OBSTRUCTIVE PULMONARY DISEASE, UNSPECIFIED (4) Cellulitis Assessment/Plan: b/llex on Iv abx..will switch to po Code(s): L03.90 - CELLULITIS, UNSPECIFIED
[2018-06-04] MEDS ORDERED: QUEtiapine FUMARATE 25 MG TABLET (FP) ONE (21:18)
[2018-06-04] MEDS: SENNOSIDES 8.6MG TABLET (FP) PO SCH (21:24)
[2018-06-04] MEDS: QUEtiapine FUMARATE 50 MG TABLET PO SCH (21:24)
[2018-06-04] MEDS ORDERED: PT OWN MED DRAWER 7, Y5N ONE (21:39)
[2018-06-05] MEDS: CLINDAMYCIN HCL 150 MG CAPSULE (FP) PO SCH ×4 (00:30→13:13)
[2018-06-05] MEDS ORDERED: DEXTROSE 5%-WATER - 50 ML IVPB ONE ×2 (01:14→10:00)
[2018-06-05] MEDS ORDERED: PIPERACILLIN/TAZOBACTAM 3.375 GM VIAL IVPB ONE ×2 (01:14→10:00)
[2018-06-05] MEDS: PIPERACILLIN/TAZOB 3.375 GM 3.375 GM in DEXTROSE 5%-WATER - 50 ML IVPB SCH ×2 (01:26→10:48)
[2018-06-05] MEDS: METHADONE HCL 10 MG TABLET PO SCH (05:52)
[2018-06-05] MEDS: CITALOPRAM HYDROBROMIDE 20 MG TABLET (FP) PO SCH (10:47)
[2018-06-05] MEDS: HEPARIN NA (PORCINE) 5,000 UNITS/ML 1ML VIAL SQ SCH (10:48)
[2018-06-05 11:16] VITALS: BP 132/89; PULSE 87; TEMP 99
--- NOTE | 2018-06-05 13:27 | PN ---
Progress Note, Physician History of Present Illness: stable improved - Current Medication List Current Medications: Active Medications Acetaminophen (Tylenol -) 650 mg PO Q6H PRN PRN Reason: FEVER Benzocaine/Menthol (Cepacol Lozenge -) 1 each MM Q4H PRN PRN Reason: SORE THROAT Last Admin: 06/03/18 22:03 Dose: 1 each Citalopram Hydrobromide (Celexa -) 20 mg PO DAILY [facility] Last Admin: 06/05/18 10:47 Dose: 20 mg Clindamycin HCl (Cleocin -) 300 mg PO Q6HPO [facility] Last Admin: 06/05/18 13:13 Dose: 300 mg Heparin Sodium (Porcine) (Heparin -) 5,000 unit SQ BID [facility] Last Admin: 06/05/18 10:48 Dose: 5,000 unit Piperacillin Sod/Tazobactam (Sod 3.375 gm/ Dextrose) 50 mls @ 100 mls/hr IVPB Q8H-IV [facility]; Protocol Last Admin: 06/05/18 10:48 Dose: 100 mls/hr Methadone HCl (Dolophine -) 30 mg PO DAILY@0600 [facility] Last Admin: 06/05/18 05:52 Dose: 30 mg Quetiapine Fumarate (Seroquel -) 50 mg PO HS [facility] Last Admin: 06/04/18 21:24 Dose: 50 mg Senna (Senna -) 2 tab PO [facility] Last Admin: 06/04/18 21:24 Dose: Not Given - Objective Vital Signs: Vital Signs Temperature 99.0 F 06/05/18 10:00 Pulse Rate 87 06/05/18 10:00 Respiratory Rate 16 06/05/18 06:35 Blood Pressure 132/89 06/05/18 10:00 O2 Sat by Pulse Oximetry (%) 95 06/02/18 21:00 Constitutional: Yes: No Distress, Calm HENT: Yes: Atraumatic Neck: Yes: Supple, Trachea Midline Cardiovascular: Yes: S1, S2 Respiratory: Yes: Regular, CTA Bilaterally Gastrointestinal: Yes: Normal Bowel Sounds, Soft Musculoskeletal: Yes: Other Extremities: Yes: Other Neurological: Yes: Alert, Oriented Psychiatric: Yes: Alert, Oriented Labs: CBC, BMP 05/29/18 14:03 05/29/18 14:03 INR, PTT INR 1.14 (0.83-1.09) H 05/29/18 14:03 Assessment/Plan Problem List - Problems (1) Hepatitis C carrier Code(s): Z22.52 - (2) Bilateral lower extremity edema Code(s): R60.0 - LOCALIZED EDEMA (3) COPD (chronic obstructive pulmonary disease) Code(s): J44.9 - CHRONIC OBSTRUCTIVE PULMONARY DISEASE, UNSPECIFIED 4 cellulits b/l ext rt more than left plan continue abx complete the course improving rest continue current mgmt elevation of the leg
--- NOTE | 2018-06-05 20:36 | DS ---
Physical Examination Vital Signs: Vital Signs Temperature 99.0 F 06/05/18 10:00 Pulse Rate 87 06/05/18 10:00 Respiratory Rate 16 06/05/18 06:35 Blood Pressure 132/89 06/05/18 10:00 O2 Sat by Pulse Oximetry (%) 95 06/02/18 21:00 Constitutional: Yes: No Distress HENT: Yes: Atraumatic Neck: Yes: Supple Cardiovascular: Yes: Regular Rate and Rhythm Respiratory: Yes: CTA Bilaterally Gastrointestinal: Yes: Normal Bowel Sounds Extremities: Yes: Other (cellulitis improving...b/l seven) Edema: Yes Edema: LLE: Trace, RLE: Trace Peripheral Pulses WNL: Yes Neurological: Yes: Alert, Oriented Labs: CBC, BMP 05/29/18 14:03 05/29/18 14:03 Discharge Summary Reason For Visit: CELLULITIS Condition: Fair - Instructions Disposition: HOME - Home Medications Comprehensive Discharge Medication List: Ambulatory Orders Methadone [Dolophine -] 30 mg PO DAILY 03/28/14 Sennosides [Senna] 8.6 mg PO HS #14 tablet 08/25/16 Citalopram Hydrobromide [Celexa -] 20 mg PO DAILY #30 tablet 03/29/18 Quetiapine Fumarate [Seroquel -] 50 mg PO HS #30 tablet 03/29/18 Fluticasone Prop 0.05% Nasal [Flonase -] 1 - 2 spray NS DAILY 05/23/18 Amoxicillin/Potassium Clav [Augmentin 875-125 Tablet] 1 each PO BID #14 tablet 06/04/18 ri home
== END 2018-06-05 14:00 | disposition home or self-care (01) | DRG 383 ==
LOC: JER 13:04 → JERBED 15:31 → J8W 18:54
PROVIDERS: ADMIT Internal Medicine; ATTEND Internal Medicine
DX: L03.115 Cellulitis of right lower limb (principal); F17.210 Nicotine dependence, cigarettes, uncomplicated; J44.9 Chronic obstructive pulmonary disease, unspecified; L03.116 Cellulitis of left lower limb; Z99.81 Dependence on supplemental oxygen; F11.20 Opioid dependence, uncomplicated; R60.0 Localized edema; B18.2 Chronic viral hepatitis C
CPT/HCPCS: 36415; 71045-TC-FY; 73700-TC-RT; 80053; 82803; 83735; 83880; 84484; 85025; 85610; 85730; 87040; 93970-TC; 99285-25; J1644

== ENCOUNTER 2018-08-31 12:43 | Emergency (ER) | payer OTHER ==
[2018-08-31 13:20] VITALS: TEMP 99.1; BMI 25.0
[2018-08-31 15:37] LABS: BASO % 0.7 % (0-2.0); EOS % 0.7 % (0-4.5); HEMATOCRIT 48.5 % (35.4-49); HEMOGLOBIN 15.5 GM/dL (11.7-16.9); LYMPH % 31.3 % (8-40); MCHC 31.9 g/dl (32.0-35.9); MEAN CELL VOLUME 84.7 fl (80-96); MEAN PLT VOLUME 8.9 fl (7.5-11.1); MONO % 12.9 % (3.8-10.2); NEUT % 54.4 % (42.8-82.8); PLATELET COUNT 178 K/MM3 (134-434); RBC 5.72 M/mm3 (4.00-5.60); RDW 18.9 % (11.9-15.9); WHITE BLOOD COUNT 4.9 K/mm3 (4.0-10.0)
[2018-08-31 15:43] LABS: URINE APPEARANCE CLEAR; URINE BILIRUBIN NEGATIVE (NEGATIVE); URINE COLOR YELLOW; URINE GLUCOSE (UA) NEGATIVE (NEGATIVE); URINE KETONE NEGATIVE (NEGATIVE); URINE LEUK ESTERASE NEGATIVE (NEGATIVE); URINE NITRITE NEGATIVE (NEGATIVE); URINE PROTEIN NEGATIVE (NEGATIVE)
[2018-08-31 16:03] LABS: BILIRUBIN,TOTAL 0.6 mg/dL (0.2-1); BLOOD UREA NITROGEN 9.4 mg/dL (7-18); CALCIUM 8.7 mg/dL (8.5-10.1); CREATININE 0.9 mg/dL (0.55-1.3); TOT PROT 6.4 g/dl (6.4-8.2)
--- NOTE | 2018-08-31 17:14 | PDOC ---
History of Present Illness - General Chief Complaint: Edema Stated Complaint: SWOLLEN LEGS Time Seen by Provider: 08/31/18 15:10 History Source: Patient Exam Limitations: No Limitations - History of Present Illness Initial Comments: 08/31/18 16:14 58-year-old male presents to ED for evaluation of bilateral leg swelling without pain redness or increased warmth. Patient was concerned since he did have history of cellulitis in the past and did not want to wait for it to begin. Patient also states drinks alcohol on a daily basis but denies abdominal pain, fever, chills, nausea but states poor eating habits Timing/Duration: other Severity: mild Associated Symptoms: reports: denies symptoms Past History - Travel Traveled outside of the country in the last 30 days: No Close contact w/someone who was outside of country & ill: No - Past Medical History Allergies/Adverse Reactions: Allergies Allergy/AdvReac Type Severity Reaction Status Date / Time No Known Allergies Allergy Verified 08/31/18 13:20 Home Medications: Ambulatory Orders Methadone [Dolophine -] 30 mg PO DAILY 03/28/14 Citalopram Hydrobromide [Celexa -] 20 mg PO DAILY #30 tablet 03/29/18 Quetiapine Fumarate [Seroquel -] 50 mg PO HS #30 tablet 03/29/18 Anemia: No Asthma: Yes Cancer: No Cardiac Disorders: No CVA: No COPD: Yes DVT: No Dementia: No Diabetes: No Dialysis: No GI Disorders: No Disorders: No HTN: Yes Hypercholesterolemia: No Kidney Stones: No Liver Disease: No Psychiatric Problems: No Seizures: No Thyroid Disease: No Lung CA: No - Surgical History Abdominal Surgery: No Appendectomy: No Cardiac Surgery: No Cholecystectomy: No Gastric Stapling: No GI Surgery: No Lung Surgery: No Neurologic Surgery: No Orthopedic Surgery: Yes (broken jaw 2010) - Immunization History Immunization Up to Date: Yes - Suicide/Smoking/Psychosocial Hx Smoking History: Never smoked Have you smoked in the past 12 months: No Number of Cigarettes Smoked Daily: 20 Information on smoking cessation initiated: No 'Breaking Loose' booklet given: 08/25/16 Hx Alcohol Use: No Drug/Substance Use Hx: No Substance Use Type: None Hx Substance Use Treatment: Yes (rehab, [facility]) Patient Lives Alone: No Lives with/in: spouse/SO Review of Systems - Review of Systems Able to Perform ROS?: Yes Constitutional: No: Symptoms Reported HEENTM: No: Symptoms Reported Respiratory: No: Symptoms reported Cardiac (ROS): Yes: Edema ABD/GI: No: Symptoms Reported : No: Symptoms Reported Musculoskeletal: No: Symptoms Reported Integumentary: No: Symptoms Reported Neurological: No: Symptoms reported Endocrine: No: Symptoms Reported Hematologic/Lymphatic: No: Symptoms Reported *Physical Exam - Vital Signs Last Vital Signs Temp Pulse Resp BP Pulse Ox 99.1 F 96 H 18 158/96 85 L 08/31/18 13:17 08/31/18 13:17 08/31/18 13:17 08/31/18 13:17 08/31/18 13:17 - Physical Exam General Appearance: Yes: Nourished, Appropriately Dressed, Moderate Distress. No: Apparent Distress HEENT: negative: Pale Conjunctivae Neck: positive: Supple Respiratory/Chest: positive: Lungs Clear, Normal Breath Sounds. negative: Respiratory Distress, Accessory Muscle Use Cardiovascular: positive: Regular Rhythm, Regular Rate. negative: Murmur Gastrointestinal/Abdominal: positive: Soft. negative: Tenderness Extremity: positive: Normal Capillary Refill, Pedal Edema (matteo 1+ pedal bilateral) Integumentary: positive: Normal Color, Warm, Moist. negative: Erythema Neurologic: positive: Motor Strength 5/5 (ambulatory) ED Treatment Course - LABORATORY CBC & Chemistry Diagram: 08/31/18 15:22 08/31/18 15:22 - ADDITIONAL ORDERS Additional order review: Laboratory Results 08/31/18 08/31/18 08/31/18 15:22 15:22 15:13 Sodium 144 Potassium 4.0 Chloride 102 Carbon Dioxide 39 H Anion Gap 2 L BUN 9.4 Creatinine 0.9 Est GFR (CKD-EPI)AfAm 107.22 Est GFR (CKD-EPI)NonAf 92.51 Random Glucose 102 Lactic Acid 0.7 Calcium 8.7 Total Bilirubin 0.6 AST 29 ALT 30 Alkaline Phosphatase 174 H Total Protein 6.4 Albumin 3.0 L Urine Color Yellow Urine Appearance Clear Urine pH 7.0 Ur Specific [place] 1.018 Urine Protein Negative Urine Glucose (UA) Negative Urine Ketones Negative Urine Blood Negative Urine Nitrite Negative Urine Bilirubin Negative Urine Urobilinogen 1.0 Ur Leukocyte Esterase Negative 08/31/18 15:22 RBC 5.72 H MCV 84.7 MCHC 31.9 L RDW 18.9 H MPV 8.9 Neutrophils % 54.4 Lymphocytes % 31.3 D Monocytes % 12.9 H Eosinophils % 0.7 Basophils % 0.7 - RADIOLOGY Radiology Studies Ordered: Category Date Time Status DUPLEX VASCUL US-2LEGS [US] Stat Ultrasound 08/31/18 15:14 Ordered Medical Decision Making - Medical Decision Making 08/31/18 16:23 cc: ble x 3 weeks. no other complaints, hx venous insuff/cellulitis Exam: 1+ piting ble edma Plan: labs and u/s 08/31/18 17:52 08/31/18 17:52 Laboratory Tests 08/31/18 08/31/18 08/31/18 15:13 15:22 15:22 WBC 4.9 Hgb 15.5 Hct 48.5 MCHC 31.9 L RDW 18.9 H Neutrophils % 54.4 Sodium 144 Potassium 4.0 Chloride 102 Carbon Dioxide 39 H Anion Gap 2 L Lactic Acid Alkaline Phosphatase 174 H Total Protein 6.4 Albumin 3.0 L Urine Ketones Negative Urine Bilirubin Negative Ur Leukocyte Esterase Negative 08/31/18 15:22 WBC Hgb Hct MCHC RDW Neutrophils % Sodium Potassium Chloride Carbon Dioxide Anion Gap Lactic Acid 0.7 Alkaline Phosphatase Total Protein Albumin Urine Ketones Urine Bilirubin Ur Leukocyte Esterase Duplex shows no sign of DVT. Patient will be discharged home with recommendations to elevate his lower extremity along with decreasing his salt intake. *DC/Admit/Observation/Transfer Diagnosis at time of Disposition: Lower extremity edema - Discharge Dispostion Disposition: HOME - Referrals Referrals: Cece Veloz MD [Primary Care Provider] - - Patient Instructions Printed Discharge Instructions: DI for Dependent Edema Additional Instructions: Elevate your extremities when not walking. Decrease your salt intake. Follow-up with Dr. Rueda as scheduled - Post Discharge Activity
[2018-08-31 18:20] VITALS: BP 164/92; PULSE 78
== END 2018-08-31 18:20 | disposition home or self-care (01) ==
LOC: JER 12:43
DX: R60.0 Localized edema (principal); I10 Essential (primary) hypertension; J44.9 Chronic obstructive pulmonary disease, unspecified; F10.10 Alcohol abuse, uncomplicated; F11.20 Opioid dependence, uncomplicated
CPT/HCPCS: 36415; 80053; 81003; 83605; 85025; 93970-TC; 99282-25

== ENCOUNTER 2018-10-17 18:11 | Inpatient (IN) | payer OTHER ==
--- NOTE | 2018-10-17 18:22 | PDOC ---
Rapid Medical Evaluation Chief Complaint: Pain, Acute Time Seen by Provider: 10/17/18 18:17 Medical Evaluation: Allergies Allergy/AdvReac Type Severity Reaction Status Date / Time No Known Allergies Allergy Verified 10/17/18 18:16 10/17/18 18:17 I have performed a brief in-person evaluation of this patient. The patient presents with a chief complaint of: sent for admission by Dr Damico, for bilateral leg swelling and pain x 3 mos. Not resolving Pertinent physical exam findings: legs wrapped bilaterally I have ordered the following: CBC, CMP, IV The patient will proceed to the ED for further evaluation. 10/17/18 18:22 Discharge Disposition - Diagnosis Bilateral lower extremity edema - Referrals - Patient Instructions - Post Discharge Activity
[2018-10-17 20:47] LABS: BASO % 0.7 % (0-2.0); EOS % 0.9 % (0-4.5); HEMOGLOBIN 14.1 GM/dL (11.7-16.9); LYMPH % 22.6 % (8-40); MCH 27.5 pg (25.7-33.7); MCHC 31.3 g/dl (32.0-35.9); MEAN PLT VOLUME 9.2 fl (7.5-11.1); NEUT % 66.8 % (42.8-82.8); PLATELET COUNT 235 K/MM3 (134-434); RBC 5.12 M/mm3 (4.00-5.60); RDW 19.5 % (11.9-15.9); WHITE BLOOD COUNT 5.8 K/mm3 (4.0-10.0)
--- NOTE | 2018-10-17 20:50 | PDOC ---
History of Present Illness - General Chief Complaint: Wound Stated Complaint: SENT BY PCP/ADMITTANCE Time Seen by Provider: 10/17/18 18:17 Past History - Past Medical History Allergies/Adverse Reactions: Allergies Allergy/AdvReac Type Severity Reaction Status Date / Time No Known Allergies Allergy Verified 10/17/18 18:16 Home Medications: Ambulatory Orders Albuterol Sulfate Inhaler - [Ventolin HFA Inhaler -] 1 inh PO QID 10/17/18 Anemia: No Asthma: Yes Cancer: No Cardiac Disorders: No CVA: No COPD: Yes DVT: No Dementia: No Diabetes: No Dialysis: No GI Disorders: No Disorders: No HTN: Yes Hypercholesterolemia: No Kidney Stones: No Liver Disease: No Psychiatric Problems: No Seizures: No Thyroid Disease: No Lung CA: No - Surgical History Abdominal Surgery: No Appendectomy: No Cardiac Surgery: No Cholecystectomy: No Gastric Stapling: No GI Surgery: No Lung Surgery: No Neurologic Surgery: No Orthopedic Surgery: Yes (broken jaw 2010) - Immunization History Immunization Up to Date: Yes - Suicide/Smoking/Psychosocial Hx Smoking History: Current every day smoker Have you smoked in the past 12 months: Yes Number of Cigarettes Smoked Daily: 4 Information on smoking cessation initiated: No 'Breaking Loose' booklet given: 08/25/16 Hx Alcohol Use: No Drug/Substance Use Hx: No Substance Use Type: None Hx Substance Use Treatment: Yes (rehab, [facility]) *Physical Exam - Vital Signs Last Vital Signs Temp Pulse Resp BP Pulse Ox 98.9 F 76 18 138/75 100 10/17/18 18:17 10/17/18 18:17 10/17/18 18:17 10/17/18 18:17 10/17/18 18:17 ED Treatment Course - LABORATORY CBC & Chemistry Diagram: 10/17/18 20:37 10/17/18 20:37 Medical Decision Making - Medical Decision Making 58yo M with PMH of COPD (on 3L oxygen at home), heroin abuse (on methadone), peripheral vascular disease sent by his infectious disease specialist for BLE cellulitis. Patient has been on outpatient antibiotics (does not know what meds ) but his infection has not improved. He saw his ID doctor today and was instructed to present to the ER for admission. The legs have been infected for the past several months and have had worsening redness and swelling in the past month. No fevers, chills, chest pain, or shortness of breath. PCP: Dr. Damico ID: Dr. Schultz ROS: Constitutional: no fever, no chills HEENT: no throat pain, no dysphagia Cardiovascular: no chest pain, no palpitations Respiratory: no cough, no shortness of breath Gastrointestinal: no abdominal pain, no nausea Genitourinary: no dysuria, no hematuria Musculoskeletal: no myalgia, no arthralgia Skin: +R. leg erythema + L. leg erythema Neurologic: no headache, no weakness PE: General: Awake, alert, and fully oriented, in no acute distress Head: No signs of trauma Eyes: EOMI, sclera anicteric ENT: Moist mucus membranes Neck: Normal ROM, supple Lungs: Lungs clear, Normal breath sounds Cardio: Regular rhythm, S1 and S2 present Abdomen: Soft, nontender Extremities: Normal range of motion, Distal pulses present BLE with erythema, induration, and warmth extending up to the knees; 1.5cm circular superficial ulceration present on medial R. mid-calf SKIN: Warm, Dry, normal turgor Neurologic: Cranial nerves II through XII grossly intact. Normal speech ED Courses/MDM: DDX including but not limited to cellulitis, PVD, lymphedema, CHF Labs, EKG, CXR CBC WBC 5.8 K/mm3 (4.0-10.0) 10/17/18 20:37 RBC 5.12 M/mm3 (4.00-5.60) 10/17/18 20:37 Hgb 14.1 GM/dL (11.7-16.9) 10/17/18 20:37 Hct 45.0 % (35.4-49) 10/17/18 20:37 MCV 88.0 fl (80-96) 10/17/18 20:37 MCH 27.5 pg (25.7-33.7) 10/17/18 20:37 MCHC 31.3 g/dl (32.0-35.9) L 10/17/18 20:37 RDW 19.5 % (11.9-15.9) H 10/17/18 20:37 Plt Count 235 K/MM3 (134-434) D 10/17/18 20:37 MPV 9.2 fl (7.5-11.1) 10/17/18 20:37 Absolute Neuts (auto) 3.9 K/mm3 (1.5-8.0) 10/17/18 20:37 Neutrophils % 66.8 % (42.8-82.8) D 10/17/18 20:37 Lymphocytes % 22.6 % (8-40) D 10/17/18 20:37 Monocytes % 9.0 % (3.8-10.2) 10/17/18 20:37 Eosinophils % 0.9 % (0-4.5) 10/17/18 20:37 Basophils % 0.7 % (0-2.0) 10/17/18 20:37 Nucleated RBC % 0 % (0-0) 10/17/18 20:37 No leukocytosis CMP Sodium 143 mmol/L (136-145) 10/17/18 20:37 Potassium 4.3 mmol/L (3.5-5.1) 10/17/18 20:37 Chloride 105 mmol/L (98-107) 10/17/18 20:37 Carbon Dioxide 37 mmol/L (21-32) H 10/17/18 20:37 Anion Gap 1 MMOL/L (8-16) L 10/17/18 20:37 BUN 8.2 mg/dL (7-18) 10/17/18 20:37 Creatinine 0.8 mg/dL (0.55-1.3) 10/17/18 20:37 Est GFR (CKD-EPI)AfAm 112.53 10/17/18 20:37 Est GFR (CKD-EPI)NonAf 97.10 10/17/18 20:37 Random Glucose 141 mg/dL (74-106) H 10/17/18 20:37 Calcium 8.3 mg/dL (8.5-10.1) L 10/17/18 20:37 Total Bilirubin 0.4 mg/dL (0.2-1) 10/17/18 20:37 AST 62 U/L (15-37) H 10/17/18 20:37 ALT 54 U/L (13-61) 10/17/18 20:37 Alkaline Phosphatase 261 U/L (45-117) H 10/17/18 20:37 Total Protein 6.4 g/dl (6.4-8.2) 10/17/18 20:37 Albumin 2.8 g/dl (3.4-5.0) L 10/17/18 20:37 Electrolytes unremarkable Normal Cr Discussed case with Dr. Schultz who recommends Zosyn, full dose Pending EKG and CXR Plan for admission 10/17/18 22:[address] Damico. She accepts patient for admission under herself. 10/18/18 22:28 EKG: rate 74, QTc 468, NSR, isolated twi in V3 *DC/Admit/Observation/Transfer Diagnosis at time of Disposition: Bilateral lower extremity edema Cellulitis Qualifiers: Site of cellulitis: extremity Site of cellulitis of extremity: lower extremity Laterality: unspecified laterality Qualified Code(s): L03.119 - Cellulitis of unspecified part of limb - Discharge Dispostion Condition at time of disposition: Guarded Decision to Admit order: Yes - Referrals - Patient Instructions - Post Discharge Activity
[2018-10-17 20:59] LABS: INR 1.1 (0.83-1.09)
[2018-10-17 21:15] LABS: ALBUMIN 2.8 g/dl (3.4-5.0); BILIRUBIN,TOTAL 0.4 mg/dL (0.2-1); BLOOD UREA NITROGEN 8.2 mg/dL (7-18); CALCIUM 8.3 mg/dL (8.5-10.1); CREATININE 0.8 mg/dL (0.55-1.3); POTASSIUM 4.3 mmol/L (3.5-5.1); TOT PROT 6.4 g/dl (6.4-8.2)
[2018-10-17] MEDS ORDERED: PIPERACILLIN/TAZOB 4.5 GM 4.5 GM in DEXTROSE 5%-WATER 100 ML IVPB ONE (22:20)
[2018-10-17] MEDS ORDERED: PIPERACILLIN/TAZOB 4.5 GM 4.5 GM/100 ML BAG IVPB ONE (22:42)
--- NOTE | 2018-10-17 22:48 | PDOC ---
Documentation entered by Herman Mcgrath SCRIBE, acting as scribe for Linda Guerrero MD. Linda Guerrero MD: This documentation has been prepared by the Ramila kirk Xhesika, SCRIBE, under my direction and personally reviewed by me in its entirety. I confirm that the documentation accurately reflects all work, treatment, procedures, and medical decision making performed by me. Attending Attestation - Resident Resident Name: Camille Mabry - ED Attending Attestation I have performed the following: I have examined & evaluated the patient, The case was reviewed & discussed with the resident, I agree w/resident's findings & plan, Exceptions are as noted - HPI HPI: 10/17/18 22:14 58-year-old male with a long-standing history of peripheral vascular disease and nonhealing leg wounds is being sent for admission after failing outpatient antibiotics - Physicial Exam PE: 10/17/18 22:15 lender 58-year-old male in no acute distress. Head normocephalic/atraumatic. Neck is supple Lungs are clear to auscultation. CVS regular rate and rhythm S1, S2 Abdomensoft, no rebound, no tenderness. No CVA tenderness. Skin warm and dry Extremities both lower extremities are erythematous with ulcers and are now bandaged Neuro patient alert, oriented, conversant - Medical Decision Making 10/17/18 22:16 58 male w LE nonhealing wounds being admitted to med/surg Dr Schultz is the ID storage consultant
[2018-10-18 06:53] LABS: BASO % 0.3 % (0-2.0); HEMATOCRIT 45.3 % (35.4-49); HEMOGLOBIN 14.5 GM/dL (11.7-16.9); LYMPH % 25.2 % (8-40); MCH 28.1 pg (25.7-33.7); MEAN PLT VOLUME 8.9 fl (7.5-11.1); MONO % 12.5 % (3.8-10.2); PLATELET COUNT 224 K/MM3 (134-434); RBC 5.15 M/mm3 (4.00-5.60); RDW 19.3 % (11.9-15.9); WHITE BLOOD COUNT 4.4 K/mm3 (4.0-10.0)
[2018-10-18 07:24] LABS: ALBUMIN 2.9 g/dl (3.4-5.0); BILIRUBIN,TOTAL 1.2 mg/dL (0.2-1); BLOOD UREA NITROGEN 6.8 mg/dL (7-18); CALCIUM 8.5 mg/dL (8.5-10.1); CREATININE 0.8 mg/dL (0.55-1.3); POTASSIUM 4.5 mmol/L (3.5-5.1); TOT PROT 6.6 g/dl (6.4-8.2)
[2018-10-18] MEDS: HEPARIN NA (PORCINE) 5,000 UNITS/ML 1ML VIAL SQ SCH ×2 (09:05→21:15)
[2018-10-18] MEDS ORDERED: PIPERACILLIN/TAZOB 3.375 GM 3.375 GM/50 ML BAG IVPB ONE (09:50)
[2018-10-18] MEDS ORDERED: PIPERACILLIN/TAZOB 3.375 GM 3.375 GM in DEXTROSE 5%-WATER - 50 ML IVPB SCH (10:00)
--- NOTE | 2018-10-18 13:18 | CON.ID ---
Consult Consult Specialty:: infectious diseases - Past Medical History Pulmonary: Yes: Asthma - Past Surgical History Past Surgical History: Yes: None - Alcohol/Substance Use Hx Alcohol Use: No History of Substance Use: reports: Heroin (quit 1 year ago, now on methadone program) - Smoking History Smoking history: Current every day smoker Have you smoked in the past 12 months: Yes Aproximately how many cigarettes per day: 4 - Social History Usual Living Arrangement: Alone ADL: Independent Occupation: previously did [employer] work and [employer] History of Recent Travel: No Home Medications - Allergies Allergies/Adverse Reactions: Allergies Allergy/AdvReac Type Severity Reaction Status Date / Time No Known Allergies Allergy Verified 10/17/18 18:16 - Home Medications Home Medications: Ambulatory Orders Albuterol Sulfate Inhaler - [Ventolin HFA Inhaler -] 1 inh PO QID 10/17/18 Physical Exam Vital Signs: Vital Signs Temperature 98.2 F 10/18/18 10:00 Pulse Rate 80 10/18/18 10:00 Respiratory Rate 18 10/18/18 10:00 Blood Pressure 137/81 10/18/18 10:00 O2 Sat by Pulse Oximetry (%) 93 L 10/18/18 10:00 Labs: CBC, BMP 10/18/18 06:00 10/18/18 06:00
--- NOTE | 2018-10-18 13:30 | EKG ---
Test Reason : Blood Pressure : / mmHG Vent. Rate : 074 BPM Atrial Rate : 074 BPM P-R Int : 132 ms QRS Dur : 070 ms QT Int : 422 ms P-R-T Axes : 052 094 044 degrees QTc Int : 468 ms NORMAL SINUS RHYTHM POSSIBLE LEFT ATRIAL ENLARGEMENT RIGHTWARD AXIS BORDERLINE ECG WHEN COMPARED WITH ECG OF 23-MAY-2018 16:09, NO SIGNIFICANT CHANGE WAS FOUND Confirmed by REYES GODOY MD ([id number]) on 10/18/2018 1:30:11 PM Referred By: Confirmed By:REYES GODOY MD
--- NOTE | 2018-10-18 16:43 | HP ---
Admitting History and Physical - Admission History of Present Illness: Pt is a 58 y/o male with PMH significant for COPD, heroin abuse (on methadone), and peripheral vascular disease. Pt was sent by his infectious disease specialist for BLE cellulitis. Patient has been on outpatient antibiotics (does not know what meds) but his infection has not improved. He saw his ID doctor today and was instructed to present to the ER for admission. The legs have been infected for the past several months and have had worsening redness and swelling in the past month. No fevers, chills, chest pain, or shortness of breath. - Past Medical History Pulmonary: Yes: Asthma Psych: Yes: Addictions, Other - Past Surgical History Past Surgical History: Yes: None - Smoking History Smoking history: Current every day smoker Have you smoked in the past 12 months: Yes Aproximately how many cigarettes per day: 4 - Alcohol/Substance Use Hx Alcohol Use: No History of Substance Use: reports: Heroin (quit 1 year ago, now on methadone program) - Social History ADL: Independent Occupation: previously did [employer] work and [employer] History of Recent Travel: No Home Medications - Allergies Allergies/Adverse Reactions: Allergies Allergy/AdvReac Type Severity Reaction Status Date / Time No Known Allergies Allergy Verified 10/17/18 18:16 - Home Medications Home Medications: Ambulatory Orders Albuterol Sulfate Inhaler - [Ventolin HFA Inhaler -] 1 inh PO QID 10/17/18 Family Disease History - Family Disease History Family History: Unremarkable Review of Systems - Review of Systems Constitutional: reports: Weakness Eyes: reports: No Symptoms HENT: reports: No Symptoms Neck: reports: No Symptoms Cardiovascular: reports: No Symptoms Respiratory: reports: No Symptoms Gastrointestinal: reports: No Symptoms Genitourinary: reports: No Symptoms Physical Examination Vital Signs: Vital Signs Temperature 98.2 F 10/18/18 10:00 Pulse Rate 80 10/18/18 10:00 Respiratory Rate 18 10/18/18 10:00 Blood Pressure 137/81 10/18/18 10:00 O2 Sat by Pulse Oximetry (%) 93 L 10/18/18 10:00 Constitutional: Yes: No Distress Eyes: Yes: WNL HENT: Yes: WNL Neck: Yes: WNL, Supple Cardiovascular: Yes: WNL, Regular Rate and Rhythm Respiratory: Yes: WNL, Regular, CTA Bilaterally Gastrointestinal: Yes: WNL, Normal Bowel Sounds, Soft Musculoskeletal: Yes: WNL Extremities: Yes: Other ((+) open wound RLE (+) edema b/l (+) erythema LLE) Labs: CBC, BMP 10/18/18 06:00 10/18/18 06:00 Problem List - Problems (1) Bilateral lower extremity edema Code(s): R60.0 - LOCALIZED EDEMA (2) Cellulitis Assessment/Plan: Cont IV antibxs Monitor cultures ID/Vascular consults Code(s): L03.90 - CELLULITIS, UNSPECIFIED Qualifiers: Site of cellulitis: extremity Site of cellulitis of extremity: lower extremity Laterality: unspecified laterality Qualified Code(s): L03.119 - Cellulitis of unspecified part of limb (3) Methadone maintenance therapy patient Assessment/Plan: Cont methadone Code(s): F11.20 - OPIOID DEPENDENCE, UNCOMPLICATED (4) COPD (chronic obstructive pulmonary disease) Assessment/Plan: Duoneb prn Code(s): J44.9 - CHRONIC OBSTRUCTIVE PULMONARY DISEASE, UNSPECIFIED
[2018-10-18] MEDS ORDERED: PIPERACILLIN/TAZOBACTAM 3.375 GM VIAL IVPB ONE (17:36)
[2018-10-18] MEDS ORDERED: DEXTROSE 5%-WATER - 50 ML IVPB ONE (17:36)
[2018-10-18] MEDS: PIPERACILLIN/TAZOB 3.375 GM 3.375 GM in DEXTROSE 5%-WATER - 50 ML IVPB SCH (17:43)
[2018-10-18 18:00] VITALS: BMI 25.9
[2018-10-19] MEDS ORDERED: DEXTROSE 5%-WATER - 50 ML IVPB ONE ×4 (00:23→20:29)
[2018-10-19] MEDS ORDERED: PIPERACILLIN/TAZOBACTAM 3.375 GM VIAL IVPB ONE ×4 (00:23→20:28)
[2018-10-19] MEDS: PIPERACILLIN/TAZOB 3.375 GM 3.375 GM in DEXTROSE 5%-WATER - 50 ML IVPB SCH ×3 (01:18→17:11)
[2018-10-19 07:39] LABS: BASO % 0.2 % (0-2.0); EOS % 1.4 % (0-4.5); HEMATOCRIT 46.9 % (35.4-49); LYMPH % 22.6 % (8-40); MCH 28.2 pg (25.7-33.7); MEAN CELL VOLUME 87.9 fl (80-96); MEAN PLT VOLUME 9.3 fl (7.5-11.1); NEUT % 65.8 % (42.8-82.8); RBC 5.34 M/mm3 (4.00-5.60); WHITE BLOOD COUNT 4.3 K/mm3 (4.0-10.0)
[2018-10-19 07:58] LABS: PLATELET COUNT 231 K/MM3 (134-434)
[2018-10-19 08:12] LABS: ALBUMIN 2.8 g/dl (3.4-5.0); BILIRUBIN,TOTAL 0.8 mg/dL (0.2-1); BLOOD UREA NITROGEN 9.9 mg/dL (7-18); CALCIUM 8.9 mg/dL (8.5-10.1); CREATININE 0.8 mg/dL (0.55-1.3); POTASSIUM 4.8 mmol/L (3.5-5.1); TOT PROT 6.5 g/dl (6.4-8.2)
--- NOTE | 2018-10-19 08:39 | PN ---
Progress Note, Physician History of Present Illness: legs starting to improve feels better wound looks better - Current Medication List Current Medications: Active Medications Heparin Sodium (Porcine) (Heparin -) 5,000 unit SQ BID [facility] Last Admin: 10/18/18 21:15 Dose: 5,000 unit Piperacillin Sod/Tazobactam (Sod 3.375 gm/ Dextrose) 50 mls @ 100 mls/hr IVPB Q8H-IV JANENE; Protocol Last Admin: 10/19/18 01:18 Dose: 100 mls/hr - Objective Vital Signs: Vital Signs Temperature 98.1 F 10/19/18 06:08 Pulse Rate 82 10/19/18 06:08 Respiratory Rate 20 10/19/18 06:08 Blood Pressure 146/91 10/19/18 06:08 O2 Sat by Pulse Oximetry (%) 95 10/18/18 21:00 Constitutional: Yes: No Distress, Calm Cardiovascular: Yes: S1, S2 Respiratory: Yes: Regular, CTA Bilaterally Gastrointestinal: Yes: Normal Bowel Sounds, Soft Musculoskeletal: Yes: WNL Extremities: Yes: Erythema (present), Other Wound/Incision: Yes: Dressing Dry and Intact Neurological: Yes: Alert, Oriented Psychiatric: Yes: Alert, Oriented Labs: CBC, BMP 10/19/18 06:40 10/19/18 06:40 INR, PTT INR 1.10 (0.83-1.09) H 10/17/18 20:37 Assessment/Plan non healing wound of the leg venous insufficiency b/l cellulitis of the leg pain leg patient with other medical problems plan continue abx wound care rest as per the team
[2018-10-19] MEDS: HEPARIN NA (PORCINE) 5,000 UNITS/ML 1ML VIAL SQ SCH ×2 (09:01→22:35)
[2018-10-19] MEDS ORDERED: METHADONE HCL 10 MG TABLET (FOR DETOX USE ONLY) PO SCH (11:45)
[2018-10-19] MEDS ORDERED: METHADONE HCL 10 MG TABLET ONE (12:37)
[2018-10-19] MEDS ORDERED: METHADONE HCL 5 MG TABLET ONE (12:37)
[2018-10-19] MEDS: METHADONE 30 MG, METHADONE 5 MG PO SCH (12:41)
[2018-10-19] MEDS: ALBUTEROL SO4 2.5/IPRATROPIUM 0.5 INH SOL 3 ML VIAL.NEB. NEB PRN (13:46)
--- NOTE | 2018-10-19 14:15 | PN ---
Progress Note (short form) - Note Progress Note: Vascular Surgery Asked to evaluate patient for b/l LE cellulitis r/o compartment syndrome of left LE Patient seen and examined at bedside with Dr Rueda. 58yo M with PMH of COPD (on 3L oxygen at home), heroin abuse (on methadone), peripheral vascular disease, sent by his infectious disease specialist for BLE cellulitis. Patient has been on outpatient antibiotics (does not know what meds ) but his infection has not improved. He saw his ID doctor today and was instructed to present to the ER for admission. The legs right leg wound is chronic and he feels as though he has had infected "legs" for the past several months with worsening redness and swelling in the past month. No fevers, chills , chest pain, or shortness of breath. Vital Signs Temp 99 F 10/19/18 14:05 Pulse 78 10/19/18 14:05 Resp 18 10/19/18 14:05 BP 160/91 10/19/18 14:05 Pulse Ox 96 10/19/18 09:00 Intake & Output 10/18/18 10/19/18 10/19/18 23:59 11:59 23:59 Intake Total 300 600 350 Balance 300 600 350 Weight 155 lb 9.6 oz Intake: Oral 300 600 350 Other: Voiding Method Toilet Toilet Height 5 ft 5 in Body Mass Index (BMI) 25.9 Weight Measurement Method Standing Scale CBC, BMP 10/19/18 06:40 10/19/18 06:40 PE: General: Awake, alert, and fully oriented, in no acute distress Head: No signs of trauma Eyes: EOMI, sclera anicteric Lungs: unlabored resp on 3L NC BL LE with diffuse erythema, edema and warmth extending from knees to ankles; Right LE distal 1/3rd medial aspect of calf- small 1.5cm well circumscribed circular superficial ulceration, closed with no d/c or foul odor. Left LE with diffuse edema throughout thigh extending to foot, thigh soft but noticeably more swollen than right LE. Left LE compartments tense but compressible. warm with some erythema. foot warm and well perfused with +1 DP and TP pulses. no pain with AROM and PROM with dorsi/plantar flexion and 5/5 strength SKIN: Warm, Dry, normal turgor Neurologic: Cranial nerves II through XII grossly intact. Normal speech Problem List - Problems (1) Cellulitis Assessment/Plan: 58 yo male with b/l cellulitis L>R in the setting of PVD and right chronic leg wound-currently closed, with no evidence of compartment syndrome. 1) IV ABX per ID 2) bacitracin and clean dry dressing to right LE wond-currently closed and healing well 3) Elevate B/L LE above level of heart while in bed 4) OOB as tolerated 5) f/u with Dr Rueda in wound care clinic as discussed. Code(s): L03.90 - CELLULITIS, UNSPECIFIED Qualifiers: Site of cellulitis: extremity Site of cellulitis of extremity: lower extremity Laterality: unspecified laterality Qualified Code(s): L03.119 - Cellulitis of unspecified part of limb
[2018-10-19] MEDS: BACITRACIN 15 GM TUBE TOPICAL OINTMENT TP SCH (15:04)
--- NOTE | 2018-10-19 23:38 | PN ---
Progress Note, Physician History of Present Illness: Pt states that he still feels pain in his legs due to swelling - Current Medication List Current Medications: Active Medications Albuterol/Ipratropium (Duoneb -) 1 amp NEB Q6H PRN PRN Reason: SHORTNESS OF BREATH Last Admin: 10/19/18 13:46 Dose: 1 amp Bacitracin (Bacitracin -) 1 applic TP DAILY [facility] Last Admin: 10/19/18 15:04 Dose: 1 applic Heparin Sodium (Porcine) (Heparin -) 5,000 unit SQ BID [facility] Last Admin: 10/19/18 22:35 Dose: 5,000 unit Piperacillin Sod/Tazobactam (Sod 3.375 gm/ Dextrose) 50 mls @ 100 mls/hr IVPB Q8H-IV [facility]; Protocol Last Admin: 10/19/18 17:11 Dose: 100 mls/hr Methadone HCl 30 mg/ Methadone (HCl 5 mg) 35 mg PO DAILY@0600 [facility] Last Admin: 10/19/18 12:41 Dose: 35 mg - Objective Vital Signs: Vital Signs Temperature 98.5 F 10/19/18 17:40 Pulse Rate 72 10/19/18 17:40 Respiratory Rate 20 10/19/18 21:00 Blood Pressure 156/82 10/19/18 17:40 O2 Sat by Pulse Oximetry (%) 95 10/19/18 21:00 Constitutional: Yes: Well Nourished, Obese HENT: Yes: WNL Neck: Yes: WNL, Supple Cardiovascular: Yes: WNL, Regular Rate and Rhythm Respiratory: Yes: WNL, Regular, CTA Bilaterally Gastrointestinal: Yes: WNL, Normal Bowel Sounds, Soft, Abdomen, Obese Extremities: Yes: Other (Ulcer RLE (+) erythema B/L lower extremities) Edema: LLE: 1+, RLE: 1+ Labs: CBC, BMP 10/19/18 06:40 10/19/18 06:40 INR, PTT INR 1.10 (0.83-1.09) H 10/17/18 20:37 Problem List - Problems (1) Cellulitis Assessment/Plan: Cont IV antibxs Code(s): L03.90 - CELLULITIS, UNSPECIFIED Qualifiers: Site of cellulitis: extremity Site of cellulitis of extremity: lower extremity Laterality: unspecified laterality Qualified Code(s): L03.119 - Cellulitis of unspecified part of limb (2) Bilateral lower extremity edema Assessment/Plan: Pt also noted to be hypertensive Check echo Start Hctz Keep legs elevated Code(s): R60.0 - LOCALIZED EDEMA (3) Methadone maintenance therapy patient Assessment/Plan: Cont methadone Code(s): F11.20 - OPIOID DEPENDENCE, UNCOMPLICATED (4) COPD (chronic obstructive pulmonary disease) Assessment/Plan: Duoneb prn Code(s): J44.9 - CHRONIC OBSTRUCTIVE PULMONARY DISEASE, UNSPECIFIED
[2018-10-20] MEDS ORDERED: PIPERACILLIN/TAZOBACTAM 3.375 GM VIAL IVPB ONE ×3 (00:53→18:46)
[2018-10-20] MEDS ORDERED: DEXTROSE 5%-WATER - 50 ML IVPB ONE ×3 (00:53→18:46)
[2018-10-20] MEDS: PIPERACILLIN/TAZOB 3.375 GM 3.375 GM in DEXTROSE 5%-WATER - 50 ML IVPB SCH ×3 (01:05→18:57)
[2018-10-20] MEDS ORDERED: METHADONE HCL 5 MG TABLET ONE (04:58)
[2018-10-20] MEDS ORDERED: METHADONE HCL 10 MG TABLET ONE (04:58)
[2018-10-20] MEDS: METHADONE 30 MG, METHADONE 5 MG PO SCH (06:00)
[2018-10-20] MEDS: ALBUTEROL SO4 2.5/IPRATROPIUM 0.5 INH SOL 3 ML VIAL.NEB. NEB PRN (07:22)
--- NOTE | 2018-10-20 08:22 | PN ---
Progress Note (short form) - Note Progress Note: Patient doing well. Sitting on edge of bed eating breakfast. No complaints. No change compared to previous PAs note dated 10/19/18. No further surgical interventions. Wound/dressing care ordered. Cont medical management. Reconsult PRN On behalf of Dr. Rueda thank you for the opportunity to participate in your patient's care
--- NOTE | 2018-10-20 09:07 | PN ---
Progress Note, Physician History of Present Illness: stable improving - Current Medication List Current Medications: Active Medications Albuterol/Ipratropium (Duoneb -) 1 amp NEB Q6H PRN PRN Reason: SHORTNESS OF BREATH Last Admin: 10/20/18 07:22 Dose: 1 amp Bacitracin (Bacitracin -) 1 applic TP DAILY [facility] Last Admin: 10/19/18 15:04 Dose: 1 applic Heparin Sodium (Porcine) (Heparin -) 5,000 unit SQ BID JANENE Last Admin: 10/19/18 22:35 Dose: 5,000 unit Hydrochlorothiazide (Hctz -) 25 mg PO DAILY [facility] Piperacillin Sod/Tazobactam (Sod 3.375 gm/ Dextrose) 50 mls @ 100 mls/hr IVPB Q8H-IV JANENE; Protocol Last Admin: 10/20/18 01:05 Dose: 100 mls/hr Methadone HCl 30 mg/ Methadone (HCl 5 mg) 35 mg PO DAILY@0600 [facility] Last Admin: 10/20/18 06:00 Dose: 35 mg - Objective Vital Signs: Vital Signs Temperature 98.6 F 10/20/18 06:00 Pulse Rate 74 10/20/18 06:00 Respiratory Rate 20 10/20/18 06:00 Blood Pressure 142/89 10/20/18 06:00 O2 Sat by Pulse Oximetry (%) 95 10/19/18 21:00 Constitutional: Yes: No Distress, Calm Cardiovascular: Yes: S1, S2 Respiratory: Yes: Regular, CTA Bilaterally Gastrointestinal: Yes: Normal Bowel Sounds, Soft Musculoskeletal: Yes: WNL Extremities: Yes: Erythema, Other Wound/Incision: Yes: Dressing Dry and Intact Neurological: Yes: Alert, Oriented Psychiatric: Yes: Alert, Oriented Labs: CBC, BMP 10/19/18 06:40 10/19/18 06:40 INR, PTT INR 1.10 (0.83-1.09) H 10/17/18 20:37 Assessment/Plan non healing wound of the leg venous insufficiency b/l cellulitis of the leg pain leg plan continue abx wound care rest as per the team
--- NOTE | 2018-10-20 10:14 | ECHO ---
Name: TRACY BUSH Exam:Adult Echocardiogram Study Date: 10/20/2018 08:11 AM Age: 58 yrs Reason For Study: Edema/ HTN Height: 65 in Weight: 155 lb BSA: 1.8 m2 MMode/2D Measurements & Calculations IVSd: 0.99 cm LA dimension: 3.4 cm LVIDd: 3.5 cm ACS: 1.9 cm LVIDs: 2.5 cm LVPWd: 1.1 cm EDV(Teich): 50.8 ml LVOT diam: 1.9 cm ESV(Teich): 23.4 ml RV S Brian: 14.9 cm/sec Doppler Measurements & Calculations MV E max brian: 111.0 cm/sec MV A max brian: 78.1 cm/sec MV dec slope: 137.8 cm/sec2 MV E/A: 1.4 Ao V2 max: 209.6 cm/sec LV V1 max P.8 mmHg Ao max P.6 mmHg LV V1 mean P.6 mmHg Ao V2 mean: 146.3 cm/sec LV V1 max: 98.0 cm/sec Ao mean P.8 mmHg LV V1 mean: 56.4 cm/sec Ao V2 VTI: 38.6 cm LV V1 VTI: 22.6 cm BRADY(I,D): 1.6 cm2 BRADY(V,D): 1.3 cm2 MR max brian: 474.4 cm/sec SV(LVOT): 63.6 ml MR max P.0 mmHg TR max brian: 300.1 cm/sec Med Peak E' Brian: 11.2 cm/sec TR max P.9 mmHg Med E/e': 9.9 Lat Peak E' Brian: 22.2 cm/sec Lat E/e': 5.0 Left Ventricle Ejection Fraction = 55-60%. Left ventricular systolic function is normal. Left Ventricular Filling pa ttern is normal for age. Right Ventricle The right ventricle is normal in size and function. Atria Normal left and right atrial size and function. Mitral Valve There is mild mitral valve thickening. There is no mitral valve stenosis. There is mild mitral regurg itation. Tricuspid Valve The tricuspid valve is normal in structure and function. There is mild tricuspid regurgitation. Right ventricular systolic pressure is elevated at 30-40mmHg. Aortic Valve There is mild aortic sclerosis.;. No hemodynamically significant valvular aortic stenosis. No aortic regurgitation is present. Pulmonic Valve The pulmonic valve is not well seen, but is grossly normal. There is no pulmonic valvular stenosis. Great Vessels The aortic root is normal size. Pericardium/Pleura There is no pericardial effusion. Interpretation Summary Ejection Fraction = 55-60%. Left Ventricular Filling pattern is normal for age. The right ventricle is normal in size and function. There is mild mitral regurgitation. There is mild tricuspid regurgitation. Right ventricular systolic pressure is elevated at 30-40mmHg. There is mild aortic sclerosis.; There is no pericardial effusion. MD Rebollar *Elif 10/20/2018 10:14 AM
[2018-10-20] MEDS: HEPARIN NA (PORCINE) 5,000 UNITS/ML 1ML VIAL SQ SCH ×2 (10:55→21:18)
[2018-10-20] MEDS: BACITRACIN 15 GM TUBE TOPICAL OINTMENT TP SCH (10:55)
[2018-10-20] MEDS: HYDROCHLOROTHIAZIDE 25 MG TABLET (FP) PO SCH (10:55)
--- NOTE | 2018-10-21 00:02 | PN ---
Progress Note, Physician History of Present Illness: Pt seen and examined on 10/20/18 however note is being entered now - Current Medication List Current Medications: Active Medications Albuterol/Ipratropium (Duoneb -) 1 amp NEB Q6H PRN PRN Reason: SHORTNESS OF BREATH Last Admin: 10/20/18 07:22 Dose: 1 amp Bacitracin (Bacitracin -) 1 applic TP DAILY [facility] Last Admin: 10/20/18 10:55 Dose: 1 applic Heparin Sodium (Porcine) (Heparin -) 5,000 unit SQ BID [facility] Last Admin: 10/20/18 21:18 Dose: 5,000 unit Hydrochlorothiazide (Hctz -) 25 mg PO DAILY [facility] Last Admin: 10/20/18 10:55 Dose: 25 mg Piperacillin Sod/Tazobactam (Sod 3.375 gm/ Dextrose) 50 mls @ 100 mls/hr IVPB Q8H-IV [facility]; Protocol Last Admin: 10/20/18 18:57 Dose: 100 mls/hr Methadone HCl 30 mg/ Methadone (HCl 5 mg) 35 mg PO DAILY@0600 [facility] Last Admin: 10/20/18 06:00 Dose: 35 mg - Objective Vital Signs: Vital Signs Temperature 99.1 F 10/20/18 19:20 Pulse Rate 67 10/20/18 19:20 Respiratory Rate 20 10/20/18 21:00 Blood Pressure 151/89 10/20/18 19:20 O2 Sat by Pulse Oximetry (%) 97 10/20/18 21:00 HENT: Yes: WNL Neck: Yes: WNL, Supple Cardiovascular: Yes: WNL, Regular Rate and Rhythm Respiratory: Yes: WNL, Regular, CTA Bilaterally Gastrointestinal: Yes: WNL, Normal Bowel Sounds, Soft Extremities: Yes: Other ((+) erythema b/l lower extremities w/ open lesion RLE) Edema: LLE: 1+, RLE: 1+ Labs: CBC, BMP 10/19/18 06:40 10/19/18 06:40 INR, PTT INR 1.10 (0.83-1.09) H 10/17/18 20:37 Problem List - Problems (1) Cellulitis Assessment/Plan: Cont IV antibxs Cont wound care Code(s): L03.90 - CELLULITIS, UNSPECIFIED Qualifiers: Site of cellulitis: extremity Site of cellulitis of extremity: lower extremity Laterality: unspecified laterality Qualified Code(s): L03.119 - Cellulitis of unspecified part of limb (2) Bilateral lower extremity edema Assessment/Plan: Cont HCtz Keep legs elevated Code(s): R60.0 - LOCALIZED EDEMA (3) Methadone maintenance therapy patient Assessment/Plan: Cont methadone Code(s): F11.20 - OPIOID DEPENDENCE, UNCOMPLICATED (4) COPD (chronic obstructive pulmonary disease) Assessment/Plan: Duoneb prn Code(s): J44.9 - CHRONIC OBSTRUCTIVE PULMONARY DISEASE, UNSPECIFIED
[2018-10-21] MEDS: PIPERACILLIN/TAZOB 3.375 GM 3.375 GM in DEXTROSE 5%-WATER - 50 ML IVPB SCH ×4 (02:42→17:45)
[2018-10-21] MEDS ORDERED: PIPERACILLIN/TAZOBACTAM 3.375 GM VIAL IVPB ONE ×3 (03:27→16:19)
[2018-10-21] MEDS ORDERED: DEXTROSE 5%-WATER - 50 ML IVPB ONE ×3 (03:27→16:19)
[2018-10-21] MEDS ORDERED: METHADONE HCL 5 MG TABLET ONE (06:00)
[2018-10-21] MEDS ORDERED: METHADONE HCL 10 MG TABLET ONE (06:00)
[2018-10-21] MEDS: METHADONE 30 MG, METHADONE 5 MG PO SCH (06:29)
[2018-10-21] MEDS: HYDROCHLOROTHIAZIDE 25 MG TABLET (FP) PO SCH (09:09)
[2018-10-21] MEDS: HEPARIN NA (PORCINE) 5,000 UNITS/ML 1ML VIAL SQ SCH ×2 (09:09→21:25)
[2018-10-21] MEDS: BACITRACIN 15 GM TUBE TOPICAL OINTMENT TP SCH (09:09)
--- NOTE | 2018-10-21 12:06 | PN ---
Progress Note, Physician History of Present Illness: doing well no complaints leg healing - Current Medication List Current Medications: Active Medications Albuterol/Ipratropium (Duoneb -) 1 amp NEB Q6H PRN PRN Reason: SHORTNESS OF BREATH Last Admin: 10/20/18 07:22 Dose: 1 amp Bacitracin (Bacitracin -) 1 applic TP DAILY [facility] Last Admin: 10/21/18 09:09 Dose: 1 applic Heparin Sodium (Porcine) (Heparin -) 5,000 unit SQ BID [facility] Last Admin: 10/21/18 09:09 Dose: 5,000 unit Hydrochlorothiazide (Hctz -) 25 mg PO DAILY [facility] Last Admin: 10/21/18 09:09 Dose: 25 mg Piperacillin Sod/Tazobactam (Sod 3.375 gm/ Dextrose) 50 mls @ 100 mls/hr IVPB Q8H-IV [facility]; Protocol Last Admin: 10/21/18 09:09 Dose: 100 mls/hr Methadone HCl 30 mg/ Methadone (HCl 5 mg) 35 mg PO DAILY@0600 [facility] Last Admin: 10/21/18 06:29 Dose: 35 mg - Objective Vital Signs: Vital Signs Temperature 99.3 F 10/21/18 09:00 Pulse Rate 68 10/21/18 09:00 Respiratory Rate 20 10/21/18 09:00 Blood Pressure 147/92 10/21/18 09:00 O2 Sat by Pulse Oximetry (%) 96 10/21/18 09:00 Constitutional: Yes: No Distress, Calm Cardiovascular: Yes: S1, S2 Respiratory: Yes: Regular, CTA Bilaterally Gastrointestinal: Yes: Normal Bowel Sounds, Soft Musculoskeletal: Yes: WNL Extremities: Yes: Erythema (improved), Other Wound/Incision: Yes: Dressing Dry and Intact Neurological: Yes: Alert, Oriented Psychiatric: Yes: Alert, Oriented Labs: CBC, BMP 10/19/18 06:40 10/19/18 06:40 INR, PTT INR 1.10 (0.83-1.09) H 10/17/18 20:37 Assessment/Plan non healing wound of the leg venous insufficiency b/l cellulitis of the leg pain leg plan continue abx wound care rest as per the team will deescalate by tuesday
--- NOTE | 2018-10-21 22:18 | PN ---
Progress Note, Physician History of Present Illness: No new complaints - Current Medication List Current Medications: Active Medications Albuterol/Ipratropium (Duoneb -) 1 amp NEB Q6H PRN PRN Reason: SHORTNESS OF BREATH Last Admin: 10/20/18 07:22 Dose: 1 amp Bacitracin (Bacitracin -) 1 applic TP DAILY [facility] Last Admin: 10/21/18 09:09 Dose: 1 applic Heparin Sodium (Porcine) (Heparin -) 5,000 unit SQ BID [facility] Last Admin: 10/21/18 21:25 Dose: 5,000 unit Hydrochlorothiazide (Hctz -) 25 mg PO DAILY [facility] Last Admin: 10/21/18 09:09 Dose: 25 mg Piperacillin Sod/Tazobactam (Sod 3.375 gm/ Dextrose) 50 mls @ 100 mls/hr IVPB Q8H-IV [facility]; Protocol Last Admin: 10/21/18 17:45 Dose: 100 mls/hr Methadone HCl 30 mg/ Methadone (HCl 5 mg) 35 mg PO DAILY@0600 [facility] Last Admin: 10/21/18 06:29 Dose: 35 mg - Objective Vital Signs: Vital Signs Temperature 98.9 F 10/21/18 21:30 Pulse Rate 66 10/21/18 21:30 Respiratory Rate 20 10/21/18 21:30 Blood Pressure 144/73 10/21/18 21:30 O2 Sat by Pulse Oximetry (%) 96 10/21/18 21:00 Neck: Yes: WNL, Supple Cardiovascular: Yes: WNL, Regular Rate and Rhythm Respiratory: Yes: WNL, Regular, CTA Bilaterally Gastrointestinal: Yes: WNL, Normal Bowel Sounds, Soft Extremities: Yes: Other (Decreased erythema b/l lower extremities) Edema: LLE: Trace, RLE: Trace Labs: CBC, BMP 10/19/18 06:40 10/19/18 06:40 INR, PTT INR 1.10 (0.83-1.09) H 10/17/18 20:37 Problem List - Problems (1) Cellulitis Assessment/Plan: Cont IV antibxs Cont wound care Code(s): L03.90 - CELLULITIS, UNSPECIFIED Qualifiers: Site of cellulitis: extremity Site of cellulitis of extremity: lower extremity Laterality: unspecified laterality Qualified Code(s): L03.119 - Cellulitis of unspecified part of limb (2) Bilateral lower extremity edema Assessment/Plan: Cont HCtz Keep legs elevated Code(s): R60.0 - LOCALIZED EDEMA (3) Methadone maintenance therapy patient Assessment/Plan: Cont methadone Code(s): F11.20 - OPIOID DEPENDENCE, UNCOMPLICATED (4) COPD (chronic obstructive pulmonary disease) Assessment/Plan: Duoneb prn Code(s): J44.9 - CHRONIC OBSTRUCTIVE PULMONARY DISEASE, UNSPECIFIED
[2018-10-22] MEDS ORDERED: PIPERACILLIN/TAZOBACTAM 3.375 GM VIAL IVPB ONE ×4 (00:33→23:58)
[2018-10-22] MEDS ORDERED: DEXTROSE 5%-WATER - 50 ML IVPB ONE ×4 (00:34→23:58)
[2018-10-22] MEDS: PIPERACILLIN/TAZOB 3.375 GM 3.375 GM in DEXTROSE 5%-WATER - 50 ML IVPB SCH ×3 (01:43→17:45)
[2018-10-22] MEDS ORDERED: METHADONE HCL 5 MG TABLET ONE (05:32)
[2018-10-22] MEDS ORDERED: METHADONE HCL 10 MG TABLET ONE (05:32)
[2018-10-22] MEDS: METHADONE 30 MG, METHADONE 5 MG PO SCH (06:08)
[2018-10-22] MEDS: HEPARIN NA (PORCINE) 5,000 UNITS/ML 1ML VIAL SQ SCH ×2 (09:09→21:13)
[2018-10-22] MEDS: HYDROCHLOROTHIAZIDE 25 MG TABLET (FP) PO SCH (09:09)
[2018-10-22] MEDS: BACITRACIN 15 GM TUBE TOPICAL OINTMENT TP SCH (09:09)
--- NOTE | 2018-10-22 12:10 | PN ---
Progress Note, Physician History of Present Illness: stable no issues - Current Medication List Current Medications: Active Medications Albuterol/Ipratropium (Duoneb -) 1 amp NEB Q6H PRN PRN Reason: SHORTNESS OF BREATH Last Admin: 10/20/18 07:22 Dose: 1 amp Bacitracin (Bacitracin -) 1 applic TP DAILY [facility] Last Admin: 10/22/18 09:09 Dose: 1 applic Heparin Sodium (Porcine) (Heparin -) 5,000 unit SQ BID [facility] Last Admin: 10/22/18 09:09 Dose: 5,000 unit Hydrochlorothiazide (Hctz -) 25 mg PO DAILY [facility] Last Admin: 10/22/18 09:09 Dose: 25 mg Piperacillin Sod/Tazobactam (Sod 3.375 gm/ Dextrose) 50 mls @ 100 mls/hr IVPB Q8H-IV [facility]; Protocol Last Admin: 10/22/18 09:09 Dose: 100 mls/hr Methadone HCl 30 mg/ Methadone (HCl 5 mg) 35 mg PO DAILY@0600 [facility] Last Admin: 10/22/18 06:08 Dose: 35 mg - Objective Vital Signs: Vital Signs Temperature 98.3 F 10/22/18 09:00 Pulse Rate 70 10/22/18 09:00 Respiratory Rate 20 10/22/18 09:00 Blood Pressure 149/89 10/22/18 09:00 O2 Sat by Pulse Oximetry (%) 96 10/22/18 09:00 Constitutional: Yes: No Distress, Calm Cardiovascular: Yes: S1, S2 Respiratory: Yes: Regular, CTA Bilaterally Gastrointestinal: Yes: Normal Bowel Sounds, Soft Musculoskeletal: Yes: WNL Extremities: Yes: Other (improving) Neurological: Yes: Alert, Oriented Psychiatric: Yes: Alert, Oriented Labs: CBC, BMP 10/19/18 06:40 10/19/18 06:40 INR, PTT INR 1.10 (0.83-1.09) H 10/17/18 20:37 Assessment/Plan non healing wound of the leg venous insufficiency b/l cellulitis of the leg pain leg plan continue abx wound care rest as per the team will deescalate by tuesday
[2018-10-22] MEDS: ALBUTEROL SO4 2.5/IPRATROPIUM 0.5 INH SOL 3 ML VIAL.NEB. NEB PRN (20:10)
--- NOTE | 2018-10-22 23:04 | PN ---
Progress Note, Physician History of Present Illness: No new complaints - Current Medication List Current Medications: Active Medications Albuterol/Ipratropium (Duoneb -) 1 amp NEB Q6H PRN PRN Reason: SHORTNESS OF BREATH Last Admin: 10/22/18 20:10 Dose: 1 amp Bacitracin (Bacitracin -) 1 applic TP DAILY [facility] Last Admin: 10/22/18 09:09 Dose: 1 applic Heparin Sodium (Porcine) (Heparin -) 5,000 unit SQ BID [facility] Last Admin: 10/22/18 21:13 Dose: 5,000 unit Hydrochlorothiazide (Hctz -) 25 mg PO DAILY [facility] Last Admin: 10/22/18 09:09 Dose: 25 mg Piperacillin Sod/Tazobactam (Sod 3.375 gm/ Dextrose) 50 mls @ 100 mls/hr IVPB Q8H-IV [facility]; Protocol Last Admin: 10/22/18 17:45 Dose: 100 mls/hr Methadone HCl 30 mg/ Methadone (HCl 5 mg) 35 mg PO DAILY@0600 [facility] Last Admin: 10/22/18 06:08 Dose: 35 mg - Objective Vital Signs: Vital Signs Temperature 98.3 F 10/22/18 22:00 Pulse Rate 73 10/22/18 22:00 Respiratory Rate 20 10/22/18 22:00 Blood Pressure 140/78 10/22/18 22:00 O2 Sat by Pulse Oximetry (%) 96 10/22/18 21:00 Neck: Yes: WNL, Supple Cardiovascular: Yes: WNL, Regular Rate and Rhythm Respiratory: Yes: WNL, Regular, CTA Bilaterally Gastrointestinal: Yes: WNL, Normal Bowel Sounds, Soft Extremities: Yes: Other (Decreased erythema B/L lower extremities) Edema: LLE: Trace, RLE: Trace Labs: CBC, BMP 10/19/18 06:40 10/19/18 06:40 INR, PTT INR 1.10 (0.83-1.09) H 10/17/18 20:37 Problem List - Problems (1) Cellulitis Assessment/Plan: Cont IV antibxs Probably change to PO antibxs in am as per ID Code(s): L03.90 - CELLULITIS, UNSPECIFIED Qualifiers: Site of cellulitis: extremity Site of cellulitis of extremity: lower extremity Laterality: unspecified laterality Qualified Code(s): L03.119 - Cellulitis of unspecified part of limb (2) Bilateral lower extremity edema Assessment/Plan: Cont HCtz Code(s): R60.0 - LOCALIZED EDEMA (3) Methadone maintenance therapy patient Assessment/Plan: Cont methadone Code(s): F11.20 - OPIOID DEPENDENCE, UNCOMPLICATED (4) COPD (chronic obstructive pulmonary disease) Assessment/Plan: Duoneb prn Code(s): J44.9 - CHRONIC OBSTRUCTIVE PULMONARY DISEASE, UNSPECIFIED
[2018-10-23] MEDS: PIPERACILLIN/TAZOB 3.375 GM 3.375 GM in DEXTROSE 5%-WATER - 50 ML IVPB SCH ×2 (01:10→10:36)
[2018-10-23] MEDS ORDERED: METHADONE HCL 5 MG TABLET ONE (05:40)
[2018-10-23] MEDS ORDERED: METHADONE HCL 10 MG TABLET ONE (05:40)
[2018-10-23] MEDS: METHADONE 30 MG, METHADONE 5 MG PO SCH (05:43)
[2018-10-23] MEDS ORDERED: PIPERACILLIN/TAZOBACTAM 3.375 GM VIAL IVPB ONE (09:10)
[2018-10-23] MEDS ORDERED: DEXTROSE 5%-WATER - 50 ML IVPB ONE (09:11)
--- NOTE | 2018-10-23 09:45 | PN ---
Progress Note, Physician History of Present Illness: stable looks good leg healed nicely - Current Medication List Current Medications: Active Medications Albuterol/Ipratropium (Duoneb -) 1 amp NEB Q6H PRN PRN Reason: SHORTNESS OF BREATH Last Admin: 10/22/18 20:10 Dose: 1 amp Bacitracin (Bacitracin -) 1 applic TP DAILY [facility] Last Admin: 10/22/18 09:09 Dose: 1 applic Heparin Sodium (Porcine) (Heparin -) 5,000 unit SQ BID [facility] Last Admin: 10/22/18 21:13 Dose: 5,000 unit Hydrochlorothiazide (Hctz -) 25 mg PO DAILY [facility] Last Admin: 10/22/18 09:09 Dose: 25 mg Piperacillin Sod/Tazobactam (Sod 3.375 gm/ Dextrose) 50 mls @ 100 mls/hr IVPB Q8H-IV [facility]; Protocol Last Admin: 10/23/18 01:10 Dose: 100 mls/hr Methadone HCl 30 mg/ Methadone (HCl 5 mg) 35 mg PO DAILY@0600 [facility] Last Admin: 10/23/18 05:43 Dose: 35 mg - Objective Vital Signs: Vital Signs Temperature 98.6 F 10/23/18 06:00 Pulse Rate 68 10/23/18 06:00 Respiratory Rate 20 10/23/18 06:00 Blood Pressure 145/79 10/23/18 06:00 O2 Sat by Pulse Oximetry (%) 96 10/22/18 21:00 Constitutional: Yes: No Distress, Calm Cardiovascular: Yes: Regular Rate and Rhythm Respiratory: Yes: Regular, CTA Bilaterally Gastrointestinal: Yes: Normal Bowel Sounds, Soft Musculoskeletal: Yes: WNL Extremities: Yes: Erythema (resolved nearly) Integumentary: Yes: Other Wound/Incision: Yes: Dressing Dry and Intact, Other (healing well) Psychiatric: Yes: Alert, Oriented Labs: CBC, BMP 10/19/18 06:40 10/19/18 06:40 INR, PTT INR 1.10 (0.83-1.09) H 10/17/18 20:37 Assessment/Plan non healing wound of the leg venous insufficiency b/l cellulitis of the leg pain leg plan change to oral augmentin 875 mg po bid for 7 days follow in wound care center care of the wound
[2018-10-23] MEDS: HEPARIN NA (PORCINE) 5,000 UNITS/ML 1ML VIAL SQ SCH (10:37)
[2018-10-23] MEDS: HYDROCHLOROTHIAZIDE 25 MG TABLET (FP) PO SCH ×2 (10:37→10:45)
[2018-10-23] MEDS: BACITRACIN 15 GM TUBE TOPICAL OINTMENT TP SCH (10:39)
[2018-10-23 11:05] VITALS: BP 112/73
[2018-10-23 13:32] VITALS: PULSE 60; TEMP 98.9
== END 2018-10-23 13:31 | disposition home or self-care (01) | DRG 383 ==
LOC: JER 18:11 → JERBED 22:28 → J7W 10-18 17:32
PROVIDERS: ADMIT Internal Medicine; ATTEND Internal Medicine
DX: L03.115 Cellulitis of right lower limb (principal); I73.89 Other specified peripheral vascular diseases; L03.116 Cellulitis of left lower limb; L97.919 Non-pressure chronic ulcer of unspecified part of right lower leg with unspecified severity; J44.9 Chronic obstructive pulmonary disease, unspecified; F11.20 Opioid dependence, uncomplicated; R60.0 Localized edema; E66.9 Obesity, unspecified; Z68.25 Body mass index [BMI] 25.0-25.9, adult; Z72.0 Tobacco use; Z99.81 Dependence on supplemental oxygen; Z86.59 Personal history of other mental and behavioral disorders
CPT/HCPCS: 29581-LT; 29581-RT; 36415; 71046-TC-FY; 80053; 85025; 85610; 93005; 93010; 93306-TC; 93970-TC; 94640; 99285-25; G0463-25; J1644

== ENCOUNTER 2019-02-23 15:30 | Inpatient (IN) | payer OTHER ==
[2019-02-23] MEDS ORDERED: VANCOMYCIN 1 GM in D5W (PRE-DOCKED) 1,000 MG/250 ML IVPB ONE (16:52)
[2019-02-23] MEDS ORDERED: VANCOMYCIN 1 GRAM (PRE-DOCKED) 1,000 MG/250 ML BAG IVPB ONE (17:16)
[2019-02-23 17:47] LABS: BASO % 0.6 % (0-2.0); EOS % 0.5 % (0-4.5); HEMATOCRIT 47.6 % (35.4-49); HEMOGLOBIN 14.9 GM/dL (11.7-16.9); LYMPH % 16.7 % (8-40); MCH 27.6 pg (25.7-33.7); MCHC 31.2 g/dl (32.0-35.9); MEAN CELL VOLUME 88.4 fl (80-96); MEAN PLT VOLUME 9.3 fl (7.5-11.1); MONO % 13.4 % (3.8-10.2); NEUT % 68.8 % (42.8-82.8); PLATELET COUNT 352 K/MM3 (134-434); RBC 5.38 M/mm3 (4.00-5.60); RDW 17.3 % (11.9-15.9); WHITE BLOOD COUNT 5.7 K/mm3 (4.0-10.0)
[2019-02-23 18:12] LABS: ALBUMIN 2.4 g/dl (3.4-5.0); BILIRUBIN,TOTAL 0.7 mg/dL (0.2-1); BLOOD UREA NITROGEN 6.9 mg/dL (7-18); CALCIUM 8.5 mg/dL (8.5-10.1); CREATININE 0.8 mg/dL (0.55-1.3); POTASSIUM 4.5 mmol/L (3.5-5.1); TOT PROT 6.1 g/dl (6.4-8.2)
--- NOTE | 2019-02-23 18:35 | PDOC ---
History of Present Illness - General Chief Complaint: Wound Stated Complaint: SENT FROM WOUND CARE Time Seen by Provider: 02/23/19 16:14 History Source: Patient Exam Limitations: No Limitations Past History - Past Medical History Allergies/Adverse Reactions: Allergies Allergy/AdvReac Type Severity Reaction Status Date / Time No Known Allergies Allergy Verified 10/17/18 18:16 Home Medications: Ambulatory Orders Albuterol Sulfate Inhaler - [Ventolin HFA Inhaler -] 1 inh PO QID 10/17/18 Albuterol 2.5/Ipratropium 0.5 [Duoneb -] 1 amp NEB Q6H PRN #90 amp 10/23/18 Bacitracin - [Bacitracin Topical Ointment -] 1 applic TP DAILY #1 tube 10/23/18 Hydrochlorothiazide [Hctz -] 25 mg PO DAILY #30 tablet 10/23/18 Methadone [Dolophine -] 35 mg PO DAILY 01/15/19 Anemia: No Asthma: Yes Cancer: No Cardiac Disorders: No CVA: No COPD: Yes CHF: No DVT: No Dementia: No Diabetes: No Dialysis: No GI Disorders: No Disorders: No HTN: Yes Hypercholesterolemia: No Kidney Stones: No Liver Disease: No Psychiatric Problems: No Seizures: No Thyroid Disease: No Lung CA: No - Surgical History Abdominal Surgery: No Appendectomy: No Cardiac Surgery: No Cholecystectomy: No Gastric Stapling: No GI Surgery: No Lung Surgery: No Neurologic Surgery: No Orthopedic Surgery: Yes (broken jaw 2010) - Immunization History Immunization Up to Date: Yes - Psycho Social/Smoking Cessation Hx Smoking History: Current every day smoker Have you smoked in the past 12 months: Yes Number of Cigarettes Smoked Daily: 2 Information on smoking cessation initiated: Yes 'Breaking Loose' booklet given: 08/25/16 Hx Alcohol Use: No Drug/Substance Use Hx: Yes (methadone) Substance Use Type: Heroin Hx Substance Use Treatment: Yes *Physical Exam - Vital Signs Last Vital Signs Temp Pulse Resp BP Pulse Ox 97.8 F 84 18 131/69 99 02/23/19 18:26 02/23/19 18:26 02/23/19 18:26 02/23/19 18:26 02/23/19 18:26 - Physical Exam General Appearance: No: Apparent Distress Respiratory/Chest: positive: Lungs Clear, Normal Breath Sounds. negative: Respiratory Distress Cardiovascular: positive: Regular Rhythm, Regular Rate, S1, S2. negative: Murmur Gastrointestinal/Abdominal: positive: Normal Bowel Sounds, Soft. negative: Tender, Distended, Guarding, Rebound Extremity: positive: Other (6x6 cm superficial ulcer along R santana, no drainage; small around 1x1 cm superifical ulcer along L santana, no drainage; no foul odor, no crepitus, no induration or fluctiance, BLE erythematous and warm to touch) Integumentary: negative: Ecchymosis, Bruising Neurologic: positive: Alert ED Treatment Course - LABORATORY CBC & Chemistry Diagram: 02/23/19 17:32 02/23/19 17:32 - ADDITIONAL ORDERS Additional order review: Laboratory Results 02/23/19 17:32 Sodium 143 Potassium 4.5 Chloride 103 Carbon Dioxide 38 H Anion Gap 2 L BUN 6.9 L Creatinine 0.8 Est GFR (CKD-EPI)AfAm 112.53 Est GFR (CKD-EPI)NonAf 97.10 Random Glucose 91 Calcium 8.5 Total Bilirubin 0.7 AST 34 ALT 24 Alkaline Phosphatase 151 H Total Protein 6.1 L Albumin 2.4 L 02/23/19 17:32 RBC 5.38 MCV 88.4 MCHC 31.2 L RDW 17.3 H MPV 9.3 Neutrophils % 68.8 Lymphocytes % 16.7 D Monocytes % 13.4 H Eosinophils % 0.5 Basophils % 0.6 - Medications Given in the ED: ED Medications Discontinued Medications Generic Name Dose Route Start Last Admin Trade Name Freq PRN Reason Stop Dose Admin Vancomycin HCl 1,000 mg 02/23/19 16:52 02/23/19 17:32 Vancomycin (Pre-Docked) IVPB 02/23/19 16:53 1,000 mg ONCE ONE Administration Protocol Medical Decision Making - Medical Decision Making 58-year-old male with history of COPD (on 3 L oxygen), heroin abuse (on methadone), PVD, chronic bilateral lower leg swelling was sent to the emergency room by wound care clinic as nurses noted increased swelling of his lower legs as well as redness and warmth. Patient was not seen by the vascular doctor, Dr. Rueda. Patient was sent in for possible admission. Patient states he has noted increased swelling and redness to his legs over the past 3 days. Denies fever, shortness of breath, chest pain, vomiting. Patient was last admitted to the hospital in October 2018 for bilateral lower leg cellulitis. Case also discussed Dr. Rueda who deferred need for admission to ED provider Case discussed with ID Dr. Schultz who is okay with patient getting vancomycin; will see patient as inpatient Case d/w Dr. Damico - patient admitted Given IV Van Patient afebrile; no would cultures obtained as no drainage from wound noted 02/23/19 18:32 Discharge - Discharge Information Problems reviewed: Yes Clinical Impression/Diagnosis: Cellulitis Qualifiers: Site of cellulitis of extremity: lower extremity Laterality: unspecified laterality Condition: Stable - Admission Yes - Follow up/Referral - Patient Discharge Instructions - Post Discharge Activity
[2019-02-23] MEDS ORDERED: ALBUTEROL SO4 2.5/IPRATROPIUM 0.5 INH SOL 3 ML VIAL.NEB. NEB PRN (22:48)
[2019-02-24] MEDS ORDERED: VANCOMYCIN 1 GRAM (PRE-DOCKED) 1,000 MG/250 ML BAG IVPB ONE (05:00)
[2019-02-24 07:12] LABS: BASO % 1.1 % (0-2.0); EOS % 0.7 % (0-4.5); HEMATOCRIT 48.6 % (35.4-49); HEMOGLOBIN 15.1 GM/dL (11.7-16.9); LYMPH % 24.7 % (8-40); MCH 27.5 pg (25.7-33.7); MCHC 31.2 g/dl (32.0-35.9); MEAN CELL VOLUME 88.3 fl (80-96); MEAN PLT VOLUME 9.1 fl (7.5-11.1); MONO % 14.4 % (3.8-10.2); NEUT % 59.1 % (42.8-82.8); PLATELET COUNT 349 K/MM3 (134-434); RDW 17.2 % (11.9-15.9); WHITE BLOOD COUNT 4.4 K/mm3 (4.0-10.0)
[2019-02-24 07:24] LABS: ALBUMIN 2.4 g/dl (3.4-5.0); BILIRUBIN,TOTAL 1.3 mg/dL (0.2-1); BLOOD UREA NITROGEN 5.4 mg/dL (7-18); CALCIUM 8.5 mg/dL (8.5-10.1); CREATININE 0.8 mg/dL (0.55-1.3); POTASSIUM 4.5 mmol/L (3.5-5.1); TOT PROT 6.1 g/dl (6.4-8.2)
[2019-02-24] MEDS ORDERED: METHADONE 30 MG, METHADONE 5 MG PO ONE (09:30)
[2019-02-24] MEDS ORDERED: METHADONE HCL 10 MG TABLET PO SCH (10:00)
[2019-02-24] MEDS ORDERED: METHADONE HCL 5 MG TABLET ONE (10:32)
[2019-02-24] MEDS ORDERED: METHADONE HCL 10 MG TABLET ONE (10:32)
[2019-02-24] MEDS: HEPARIN NA (PORCINE) 5,000 UNITS/ML 1ML VIAL SQ SCH ×2 (10:34→21:02)
[2019-02-24] MEDS: HYDROCHLOROTHIAZIDE 25 MG TABLET (FP) PO SCH (10:34)
--- NOTE | 2019-02-24 11:25 | CON.ID ---
Consult Consult Specialty:: infectious diseases Referred by:: Gypsy Reason for Consultation:: cellulits and wound of the left leg. swellingof the thighs - History of Present Illness Chief Complaint: wounds on the left leg. swelling of both thighs History of Present Illness: 58-year-old male with history of COPD, heroin abuse (on methadone), PVD, chronic bilateral lower leg swelling was sent to the emergency room by wound care clinic as nurses noted increased swelling of his lower legs as well as redness and warmth. . Patient was sent in for possible admission. Patient states he has noted increased swelling and redness to his legs over the past 3 days. Denies fever, shortness of breath, chest pain, vomiting. Patient was last admitted to the hospital in October 2018 for bilateral lower leg cellulitis. also patient says swelling of both thighs is bothering a lot patient says he got the wound on the leg because of bumping his leg - History Source History Provided By: Patient Limitations to Obtaining History: No Limitations - Past Medical History Pulmonary: Yes: Asthma Psych: Yes: Addictions, Other - Past Surgical History Past Surgical History: Yes: None - Alcohol/Substance Use Hx Alcohol Use: No History of Substance Use: reports: Heroin (quit 1 year ago, now on methadone program) - Smoking History Smoking history: Current every day smoker Have you smoked in the past 12 months: Yes Aproximately how many cigarettes per day: 2 - Social History Usual Living Arrangement: Alone ADL: Independent Occupation: previously did auto body work and [employer] History of Recent Travel: No Home Medications - Allergies Allergies/Adverse Reactions: Allergies Allergy/AdvReac Type Severity Reaction Status Date / Time No Known Allergies Allergy Verified 10/17/18 18:16 - Home Medications Home Medications: Ambulatory Orders Albuterol Sulfate Inhaler - [Ventolin HFA Inhaler -] 1 inh PO QID 10/17/18 Albuterol 2.5/Ipratropium 0.5 [Duoneb -] 1 amp NEB Q6H PRN #90 amp 10/23/18 Bacitracin - [Bacitracin Topical Ointment -] 1 applic TP DAILY #1 tube 10/23/18 Hydrochlorothiazide [Hctz -] 25 mg PO DAILY #30 tablet 10/23/18 Methadone [Dolophine -] 35 mg PO DAILY 01/15/19 Review of Systems - Review of Systems Constitutional: reports: No Symptoms Eyes: reports: No Symptoms HENT: reports: No Symptoms Neck: reports: No Symptoms Cardiovascular: reports: No Symptoms Respiratory: reports: No Symptoms Gastrointestinal: reports: No Symptoms Genitourinary: reports: No Symptoms Musculoskeletal: reports: Other Integumentary: reports: Erythema, Wound, Other (swelling of the thighs) Neurological: reports: No Symptoms Endocrine: reports: No Symptoms Hematology/Lymphatic: reports: No Symptoms Psychiatric: reports: No Symptoms Physical Exam Vital Signs: Vital Signs Temperature 98.6 F 02/24/19 06:00 Pulse Rate 112 H 02/24/19 08:59 Respiratory Rate 24 H 02/24/19 08:59 Blood Pressure 134/88 02/24/19 08:59 O2 Sat by Pulse Oximetry (%) 94 L 02/24/19 08:56 Constitutional: Yes: Calm, Mild Distress Eyes: Yes: Conjunctiva Clear Neck: Yes: Supple Cardiovascular: Yes: Regular Rate and Rhythm Respiratory: Yes: Regular, CTA Bilaterally Gastrointestinal: Yes: Normal Bowel Sounds, Soft Musculoskeletal: Yes: WNL Extremities: Yes: Other (swelling of the thighs) Neurological: Yes: Alert, Oriented Psychiatric: Yes: Alert, Oriented Labs: CBC, BMP 02/24/19 06:40 02/24/19 06:40 Assessment/Plan this patient with drug abuse history coming to the hospital with wound and cellulitis of the legs and also c/o of swelling of both thighs i am going to start patient on broad spectrum abx wound care rest as per the team consider getting an u/s of both legs
[2019-02-24] MEDS: VANCOMYCIN 1 GM PREMIX - 1 GM/200 ML BAG IVPB SCH (12:26)
[2019-02-24] MEDS ORDERED: DEXTROSE 5%-WATER - 50 ML IVPB ONE ×2 (13:07→16:46)
[2019-02-24] MEDS ORDERED: PIPERACILLIN/TAZOBACTAM 3.375 GM VIAL IVPB ONE ×2 (13:07→16:46)
[2019-02-24] MEDS: PIPERACILLIN/TAZOB 3.375 GM 3.375 GM in DEXTROSE 5%-WATER - 50 ML IVPB SCH ×2 (13:30→18:14)
--- NOTE | 2019-02-24 15:57 | HP ---
Admitting History and Physical - Admission History of Present Illness: Pt is a 58 y/o male with PMH significant for COPD, heroin abuse (on methadone), PVD,and chronic bilateral lower leg swelling. Pt was sent to the emergency room by wound care clinic as nurses noted increased swelling of his lower legs as well as redness and warmth. Patient states he has noted increased swelling and redness to his legs over the past 3 days. Pt was last admitted to the hospital in October 2018 for bilateral lower leg cellulitis. 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[employer] History of Recent Travel: No Home Medications - Allergies Allergies/Adverse Reactions: Allergies Allergy/AdvReac Type Severity Reaction Status Date / Time No Known Allergies Allergy Verified 10/17/18 18:16 - Home Medications Home Medications: Ambulatory Orders Albuterol Sulfate Inhaler - [Ventolin HFA Inhaler -] 1 inh PO QID 10/17/18 Albuterol 2.5/Ipratropium 0.5 [Duoneb -] 1 amp NEB Q6H PRN #90 amp 10/23/18 Bacitracin - [Bacitracin Topical Ointment -] 1 applic TP DAILY #1 tube 10/23/18 Hydrochlorothiazide [Hctz -] 25 mg PO DAILY #30 tablet 10/23/18 Methadone [Dolophine -] 35 mg PO DAILY 01/15/19 Family Medical History Family History: Unremarkable Review of Systems - Review of Systems Constitutional: reports: No Symptoms Eyes: reports: No Symptoms HENT: reports: No Symptoms Neck: reports: No Symptoms Cardiovascular: reports: No Symptoms Respiratory: reports: No Symptoms Gastrointestinal: reports: No Symptoms Genitourinary: reports: No Symptoms Physical Examination Vital Signs: Vital Signs Temperature 98.2 F 02/24/19 15:23 Pulse Rate 86 02/24/19 15:23 Respiratory Rate 20 02/24/19 15:23 Blood Pressure 143/90 02/24/19 15:23 O2 Sat by Pulse Oximetry (%) 94 L 02/24/19 08:56 Constitutional: Yes: No Distress Eyes: Yes: WNL HENT: Yes: WNL Neck: Yes: WNL, Supple Cardiovascular: Yes: WNL, Regular Rate and Rhythm Respiratory: Yes: WNL, Regular, CTA Bilaterally Gastrointestinal: Yes: WNL, Normal Bowel Sounds, Soft Extremities: Yes: Other ((+) erythema/increased warmth b/l lower extremities) Edema: LLE: 1+, RLE: 1+ Labs: CBC, BMP 02/24/19 06:40 02/24/19 06:40 Problem List - Problems (1) Cellulitis Assessment/Plan: Cont IV vanco ID consult Code(s): L03.90 - CELLULITIS, UNSPECIFIED Qualifiers: Site of cellulitis of extremity: lower extremity Laterality: unspecified laterality (2) Bilateral lower extremity edema Assessment/Plan: Cont Hctz Keep legs elevated Code(s): R60.0 - LOCALIZED EDEMA (3) COPD (chronic obstructive pulmonary disease) Assessment/Plan: Cont duoneb Code(s): J44.9 - CHRONIC OBSTRUCTIVE PULMONARY DISEASE, UNSPECIFIED (4) Methadone maintenance therapy patient Assessment/Plan: Cont methadone Code(s): F11.20 - OPIOID DEPENDENCE, UNCOMPLICATED (5) Hepatitis C carrier Code(s): Z22.52 -
[2019-02-25] MEDS ORDERED: PIPERACILLIN/TAZOBACTAM 3.375 GM VIAL IVPB ONE ×3 (01:28→16:33)
[2019-02-25] MEDS ORDERED: DEXTROSE 5%-WATER - 50 ML IVPB ONE ×3 (01:28→16:33)
[2019-02-25] MEDS: PIPERACILLIN/TAZOB 3.375 GM 3.375 GM in DEXTROSE 5%-WATER - 50 ML IVPB SCH ×3 (02:35→18:02)
[2019-02-25] MEDS: VANCOMYCIN HCL 1,250 MG in DEXTROSE 5%-WATER - 250 ML IVPB SCH (05:15)
--- NOTE | 2019-02-25 08:28 | PN ---
Progress Note, Physician History of Present Illness: stable still worried about the thigh fullness - Current Medication List Current Medications: Active Medications Albuterol/Ipratropium (Duoneb -) 1 amp NEB Q6H PRN PRN Reason: SHORTNESS OF BREATH Heparin Sodium (Porcine) (Heparin -) 5,000 unit SQ BID [facility] Last Admin: 02/24/19 21:02 Dose: 5,000 unit Hydrochlorothiazide (Hctz -) 25 mg PO DAILY [facility] Last Admin: 02/24/19 10:34 Dose: Not Given Vancomycin HCl 1,250 mg/ (Dextrose) 250 mls @ 166.667 mls/hr IVPB Q24H [facility]; Protocol Last Admin: 02/25/19 05:15 Dose: 166.667 mls/hr Piperacillin Sod/Tazobactam (Sod 3.375 gm/ Dextrose) 50 mls @ 100 mls/hr IVPB Q8H-IV [facility]; Protocol Last Admin: 02/25/19 02:35 Dose: 100 mls/hr Methadone HCl (Dolophine -) 35 mg PO DAILY [facility] - Objective Vital Signs: Vital Signs Temperature 98.4 F 02/25/19 06:00 Pulse Rate 84 02/25/19 06:00 Respiratory Rate 20 02/25/19 06:00 Blood Pressure 128/53 L 02/25/19 06:00 O2 Sat by Pulse Oximetry (%) 97 02/24/19 21:00 Constitutional: Yes: No Distress, Calm Cardiovascular: Yes: S1, S2 Respiratory: Yes: Regular, CTA Bilaterally Gastrointestinal: Yes: Normal Bowel Sounds, Soft Musculoskeletal: Yes: WNL Extremities: Yes: Other Wound/Incision: Yes: Dressing Dry and Intact Neurological: Yes: Alert, Oriented Psychiatric: Yes: Alert, Oriented Labs: CBC, BMP 02/24/19 06:40 02/24/19 06:40 Assessment/Plan Problem List - Problems (1) Hepatitis C carrier Code(s): Z22.52 - (2) Bilateral lower extremity edema Code(s): R60.0 - LOCALIZED EDEMA (3) COPD (chronic obstructive pulmonary disease) Code(s): J44.9 - CHRONIC OBSTRUCTIVE PULMONARY DISEASE, UNSPECIFIED 4 cellulits b/l ext plan continue abx wound care rest as per the team
[2019-02-25] MEDS ORDERED: METHADONE HCL 5 MG TABLET ONE (09:23)
[2019-02-25] MEDS ORDERED: METHADONE HCL 10 MG TABLET ONE (09:23)
[2019-02-25] MEDS: METHADONE 30 MG, METHADONE 5 MG PO SCH (09:30)
[2019-02-25] MEDS: HEPARIN NA (PORCINE) 5,000 UNITS/ML 1ML VIAL SQ SCH ×2 (09:36→21:15)
[2019-02-25] MEDS: HYDROCHLOROTHIAZIDE 25 MG TABLET (FP) PO SCH (09:37)
--- NOTE | 2019-02-25 22:52 | PN ---
Progress Note, Physician History of Present Illness: Pt states that there is decreased swelling of his legs - Current Medication List Current Medications: Active Medications Albuterol/Ipratropium (Duoneb -) 1 amp NEB Q6H PRN PRN Reason: SHORTNESS OF BREATH Heparin Sodium (Porcine) (Heparin -) 5,000 unit SQ BID [facility] Last Admin: 02/25/19 21:15 Dose: 5,000 unit Hydrochlorothiazide (Hctz -) 25 mg PO DAILY [facility] Last Admin: 02/25/19 09:37 Dose: Not Given Vancomycin HCl 1,250 mg/ (Dextrose) 250 mls @ 166.667 mls/hr IVPB Q24H [facility]; Protocol Last Admin: 02/25/19 05:15 Dose: 166.667 mls/hr Piperacillin Sod/Tazobactam (Sod 3.375 gm/ Dextrose) 50 mls @ 100 mls/hr IVPB Q8H-IV [facility]; Protocol Last Admin: 02/25/19 18:02 Dose: 100 mls/hr Methadone HCl 30 mg/ Methadone (HCl 5 mg) 35 mg PO DAILY@0600 [facility] Last Admin: 02/25/19 09:30 Dose: 35 mg - Objective Vital Signs: Vital Signs Temperature 98.8 F 02/25/19 21:12 Pulse Rate 84 02/25/19 21:12 Respiratory Rate 18 02/25/19 21:12 Blood Pressure 153/97 02/25/19 21:12 O2 Sat by Pulse Oximetry (%) 96 02/25/19 09:00 Neck: Yes: WNL, Supple Cardiovascular: Yes: WNL, Regular Rate and Rhythm Respiratory: Yes: WNL, Regular, CTA Bilaterally Gastrointestinal: Yes: WNL, Normal Bowel Sounds, Soft Extremities: Yes: Other ((+) lower extremity erythema) Edema: LLE: Trace, RLE: Trace Labs: CBC, BMP 02/24/19 06:40 02/24/19 06:40 Problem List - Problems (1) Cellulitis Assessment/Plan: Cont IV vanco/zosyn ID consult Code(s): L03.90 - CELLULITIS, UNSPECIFIED Qualifiers: Site of cellulitis of extremity: lower extremity Laterality: unspecified laterality (2) Bilateral lower extremity edema Assessment/Plan: Cont Hctz Keep legs elevated Code(s): R60.0 - LOCALIZED EDEMA (3) COPD (chronic obstructive pulmonary disease) Assessment/Plan: Cont duoneb Code(s): J44.9 - CHRONIC OBSTRUCTIVE PULMONARY DISEASE, UNSPECIFIED (4) Methadone maintenance therapy patient Assessment/Plan: Cont methadone Code(s): F11.20 - OPIOID DEPENDENCE, UNCOMPLICATED (5) Hepatitis C carrier Code(s): Z22.52 -
[2019-02-26] MEDS ORDERED: PIPERACILLIN/TAZOBACTAM 3.375 GM VIAL IVPB ONE ×3 (01:22→17:29)
[2019-02-26] MEDS ORDERED: DEXTROSE 5%-WATER - 50 ML IVPB ONE ×3 (01:22→17:29)
[2019-02-26] MEDS: PIPERACILLIN/TAZOB 3.375 GM 3.375 GM in DEXTROSE 5%-WATER - 50 ML IVPB SCH ×3 (01:38→17:42)
[2019-02-26] MEDS ORDERED: METHADONE HCL 10 MG TABLET ONE (05:18)
[2019-02-26] MEDS ORDERED: METHADONE HCL 5 MG TABLET ONE (05:18)
[2019-02-26] MEDS: METHADONE 30 MG, METHADONE 5 MG PO SCH (06:50)
[2019-02-26] MEDS: VANCOMYCIN HCL 1,250 MG in DEXTROSE 5%-WATER - 250 ML IVPB SCH (06:51)
[2019-02-26] MEDS: HYDROCHLOROTHIAZIDE 25 MG TABLET (FP) PO SCH (09:16)
[2019-02-26] MEDS: HEPARIN NA (PORCINE) 5,000 UNITS/ML 1ML VIAL SQ SCH ×2 (09:17→21:41)
--- NOTE | 2019-02-26 11:12 | PN ---
Progress Note, Physician History of Present Illness: stable no new issues - Current Medication List Current Medications: Active Medications Albuterol/Ipratropium (Duoneb -) 1 amp NEB Q6H PRN PRN Reason: SHORTNESS OF BREATH Heparin Sodium (Porcine) (Heparin -) 5,000 unit SQ BID [facility] Last Admin: 02/26/19 09:17 Dose: 5,000 unit Hydrochlorothiazide (Hctz -) 25 mg PO DAILY [facility] Last Admin: 02/26/19 09:16 Dose: Not Given Vancomycin HCl 1,250 mg/ (Dextrose) 250 mls @ 166.667 mls/hr IVPB Q24H [facility]; Protocol Last Admin: 02/26/19 06:51 Dose: 166.667 mls/hr Piperacillin Sod/Tazobactam (Sod 3.375 gm/ Dextrose) 50 mls @ 100 mls/hr IVPB Q8H-IV [facility]; Protocol Last Admin: 02/26/19 09:17 Dose: 100 mls/hr Methadone HCl 30 mg/ Methadone (HCl 5 mg) 35 mg PO DAILY@0600 [facility] Last Admin: 02/26/19 06:50 Dose: 35 mg - Objective Vital Signs: Vital Signs Temperature 98.4 F 02/26/19 05:00 Pulse Rate 86 02/26/19 05:00 Respiratory Rate 18 02/26/19 05:00 Blood Pressure 140/89 02/26/19 05:00 O2 Sat by Pulse Oximetry (%) 97 02/25/19 21:00 Constitutional: Yes: No Distress, Calm Cardiovascular: Yes: S1, S2 Respiratory: Yes: Regular, CTA Bilaterally Gastrointestinal: Yes: Normal Bowel Sounds, Soft Musculoskeletal: Yes: WNL Extremities: Yes: Other Wound/Incision: Yes: Dressing Dry and Intact Neurological: Yes: Alert, Oriented Psychiatric: Yes: Alert, Oriented Labs: CBC, BMP 02/24/19 06:40 02/24/19 06:40 Assessment/Plan Problem List - Problems (1) Hepatitis C carrier Code(s): Z22.52 - (2) Bilateral lower extremity edema Code(s): R60.0 - LOCALIZED EDEMA (3) COPD (chronic obstructive pulmonary disease) Code(s): J44.9 - CHRONIC OBSTRUCTIVE PULMONARY DISEASE, UNSPECIFIED 4 cellulits b/l ext plan continue abx wound care rest as per the team
--- NOTE | 2019-02-26 22:28 | PN ---
Progress Note, Physician History of Present Illness: No new complaints - Current Medication List Current Medications: Active Medications Albuterol/Ipratropium (Duoneb -) 1 amp NEB Q6H PRN PRN Reason: SHORTNESS OF BREATH Heparin Sodium (Porcine) (Heparin -) 5,000 unit SQ BID [facility] Last Admin: 02/26/19 21:41 Dose: 5,000 unit Hydrochlorothiazide (Hctz -) 25 mg PO DAILY [facility] Last Admin: 02/26/19 09:16 Dose: Not Given Vancomycin HCl 1,250 mg/ (Dextrose) 250 mls @ 166.667 mls/hr IVPB Q24H [facility]; Protocol Last Admin: 02/26/19 06:51 Dose: 166.667 mls/hr Piperacillin Sod/Tazobactam (Sod 3.375 gm/ Dextrose) 50 mls @ 100 mls/hr IVPB Q8H-IV [facility]; Protocol Last Admin: 02/26/19 17:42 Dose: 100 mls/hr Methadone HCl 30 mg/ Methadone (HCl 5 mg) 35 mg PO DAILY@0600 [facility] Last Admin: 02/26/19 06:50 Dose: 35 mg - Objective Vital Signs: Vital Signs Temperature 98.8 F 02/26/19 18:00 Pulse Rate 82 02/26/19 18:00 Respiratory Rate 18 02/26/19 18:00 Blood Pressure 147/86 02/26/19 18:00 O2 Sat by Pulse Oximetry (%) 95 02/26/19 09:00 Cardiovascular: Yes: WNL, Regular Rate and Rhythm Respiratory: Yes: WNL, Regular, CTA Bilaterally Gastrointestinal: Yes: WNL, Normal Bowel Sounds, Soft Extremities: Yes: Other ((+) erythema B/L lower extremities) Edema: Yes Labs: CBC, BMP 02/24/19 06:40 02/24/19 06:40 Problem List - Problems (1) Cellulitis Assessment/Plan: Cont IV vanco/zosyn Keep legs elevated Code(s): L03.90 - CELLULITIS, UNSPECIFIED Qualifiers: Site of cellulitis of extremity: lower extremity Laterality: unspecified laterality (2) Bilateral lower extremity edema Assessment/Plan: Cont Hctz Keep legs elevated Code(s): R60.0 - LOCALIZED EDEMA (3) COPD (chronic obstructive pulmonary disease) Assessment/Plan: Cont duoneb Code(s): J44.9 - CHRONIC OBSTRUCTIVE PULMONARY DISEASE, UNSPECIFIED (4) Methadone maintenance therapy patient Assessment/Plan: Cont methadone Code(s): F11.20 - OPIOID DEPENDENCE, UNCOMPLICATED (5) Hepatitis C carrier Code(s): Z22.52 -
[2019-02-27] MEDS ORDERED: DEXTROSE 5%-WATER - 50 ML IVPB ONE ×3 (02:26→18:15)
[2019-02-27] MEDS ORDERED: PIPERACILLIN/TAZOBACTAM 3.375 GM VIAL IVPB ONE ×3 (02:26→18:15)
[2019-02-27] MEDS: PIPERACILLIN/TAZOB 3.375 GM 3.375 GM in DEXTROSE 5%-WATER - 50 ML IVPB SCH ×3 (02:37→18:20)
[2019-02-27] MEDS ORDERED: PT OWN MED DRAWER 7, Y5N ONE (05:51)
[2019-02-27] MEDS: VANCOMYCIN HCL 1,250 MG in DEXTROSE 5%-WATER - 250 ML IVPB SCH (06:04)
[2019-02-27] MEDS ORDERED: METHADONE HCL 5 MG TABLET ONE (07:08)
[2019-02-27] MEDS ORDERED: METHADONE HCL 10 MG TABLET ONE (07:09)
[2019-02-27] MEDS: METHADONE 30 MG, METHADONE 5 MG PO SCH (07:10)
[2019-02-27] MEDS: HEPARIN NA (PORCINE) 5,000 UNITS/ML 1ML VIAL SQ SCH ×2 (09:03→21:35)
[2019-02-27] MEDS: HYDROCHLOROTHIAZIDE 25 MG TABLET (FP) PO SCH (09:04)
--- NOTE | 2019-02-27 12:49 | PN ---
Progress Note, Physician History of Present Illness: Pt is alert, stating he has less LE tenderness and edema. No new complaints. - Current Medication List Current Medications: Active Medications Albuterol/Ipratropium (Duoneb -) 1 amp NEB Q6H PRN PRN Reason: SHORTNESS OF BREATH Heparin Sodium (Porcine) (Heparin -) 5,000 unit SQ BID [facility] Last Admin: 02/27/19 09:03 Dose: 5,000 unit Hydrochlorothiazide (Hctz -) 25 mg PO DAILY [facility] Last Admin: 02/27/19 09:04 Dose: 25 mg Vancomycin HCl 1,250 mg/ (Dextrose) 250 mls @ 166.667 mls/hr IVPB Q24H [facility]; Protocol Last Admin: 02/27/19 06:04 Dose: 166.667 mls/hr Piperacillin Sod/Tazobactam (Sod 3.375 gm/ Dextrose) 50 mls @ 100 mls/hr IVPB Q8H-IV [facility]; Protocol Last Admin: 02/27/19 09:04 Dose: 100 mls/hr Methadone HCl 30 mg/ Methadone (HCl 5 mg) 35 mg PO DAILY@0600 [facility] Last Admin: 02/27/19 07:10 Dose: 35 mg - Objective Vital Signs: Vital Signs Temperature 98.5 F 02/27/19 09:10 Pulse Rate 84 02/27/19 09:10 Respiratory Rate 18 02/27/19 09:10 Blood Pressure 139/85 02/27/19 09:10 O2 Sat by Pulse Oximetry (%) 96 02/27/19 09:00 Constitutional: Yes: No Distress, Calm Eyes: Yes: Conjunctiva Clear Neck: Yes: Supple Cardiovascular: Yes: Regular Rate and Rhythm Respiratory: Yes: Regular Gastrointestinal: Yes: Normal Bowel Sounds, Soft Genitourinary: Yes: WNL Musculoskeletal: Yes: WNL Extremities: Yes: Erythema (mild LE erythema) Edema: Yes Edema: LLE: 1+, RLE: 1+ Peripheral Pulses WNL: Yes Integumentary: Yes: Erythema (LE b/l (improving)) Wound/Incision: Yes: Other (LLE ulcer with mild serous drainage) Labs: CBC, BMP 02/24/19 06:40 02/24/19 06:40 Problem List - Problems (1) Cellulitis Code(s): L03.90 - CELLULITIS, UNSPECIFIED Qualifiers: Site of cellulitis of extremity: lower extremity Laterality: unspecified laterality (2) Hepatitis C carrier Code(s): Z22.52 - (3) Bilateral lower extremity edema Code(s): R60.0 - LOCALIZED EDEMA (4) COPD (chronic obstructive pulmonary disease) Code(s): J44.9 - CHRONIC OBSTRUCTIVE PULMONARY DISEASE, UNSPECIFIED (5) Venous insufficiency Code(s): I87.2 - VENOUS INSUFFICIENCY (CHRONIC) (PERIPHERAL) (6) Methadone maintenance therapy patient Code(s): F11.20 - OPIOID DEPENDENCE, UNCOMPLICATED Assessment/Plan LE cellulitis - still with edema/mild erythema, slowly improving -- continue antibiotics -- wound care
--- NOTE | 2019-02-27 22:29 | PN ---
Progress Note, Physician - Current Medication List Current Medications: Active Medications Albuterol/Ipratropium (Duoneb -) 1 amp NEB Q6H PRN PRN Reason: SHORTNESS OF BREATH Heparin Sodium (Porcine) (Heparin -) 5,000 unit SQ BID [facility] Last Admin: 02/27/19 21:35 Dose: Not Given Hydrochlorothiazide (Hctz -) 25 mg PO DAILY [facility] Last Admin: 02/27/19 09:04 Dose: 25 mg Vancomycin HCl 1,250 mg/ (Dextrose) 250 mls @ 166.667 mls/hr IVPB Q24H [facility]; Protocol Last Admin: 02/27/19 06:04 Dose: 166.667 mls/hr Piperacillin Sod/Tazobactam (Sod 3.375 gm/ Dextrose) 50 mls @ 100 mls/hr IVPB Q8H-IV [facility]; Protocol Last Admin: 02/27/19 18:20 Dose: 100 mls/hr Methadone HCl 30 mg/ Methadone (HCl 5 mg) 35 mg PO DAILY@0600 [facility] Last Admin: 02/27/19 07:10 Dose: 35 mg - Objective Vital Signs: Vital Signs Temperature 98.9 F 02/27/19 18:00 Pulse Rate 86 02/27/19 18:00 Respiratory Rate 18 02/27/19 21:00 Blood Pressure 157/79 02/27/19 18:00 O2 Sat by Pulse Oximetry (%) 96 02/27/19 09:00 Labs: CBC, BMP 02/24/19 06:40 02/24/19 06:40 Problem List - Problems (1) Cellulitis Code(s): L03.90 - CELLULITIS, UNSPECIFIED Qualifiers: Site of cellulitis of extremity: lower extremity Laterality: unspecified laterality (2) Bilateral lower extremity edema Code(s): R60.0 - LOCALIZED EDEMA (3) COPD (chronic obstructive pulmonary disease) Code(s): J44.9 - CHRONIC OBSTRUCTIVE PULMONARY DISEASE, UNSPECIFIED (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
[2019-02-28] MEDS ORDERED: DEXTROSE 5%-WATER - 50 ML IVPB ONE ×3 (00:54→18:05)
[2019-02-28] MEDS ORDERED: PIPERACILLIN/TAZOBACTAM 3.375 GM VIAL IVPB ONE ×3 (00:54→18:05)
[2019-02-28] MEDS: PIPERACILLIN/TAZOB 3.375 GM 3.375 GM in DEXTROSE 5%-WATER - 50 ML IVPB SCH ×3 (01:59→18:20)
[2019-02-28] MEDS ORDERED: PT OWN MED DRAWER 7, Y5N ONE (05:42)
[2019-02-28] MEDS ORDERED: METHADONE HCL 10 MG TABLET ONE (06:28)
[2019-02-28] MEDS ORDERED: METHADONE HCL 5 MG TABLET ONE (06:28)
[2019-02-28] MEDS: METHADONE 30 MG, METHADONE 5 MG PO SCH (06:29)
[2019-02-28] MEDS: VANCOMYCIN HCL 1,250 MG in DEXTROSE 5%-WATER - 250 ML IVPB SCH (06:31)
[2019-02-28] MEDS: HEPARIN NA (PORCINE) 5,000 UNITS/ML 1ML VIAL SQ SCH ×2 (10:40→21:33)
[2019-02-28] MEDS: HYDROCHLOROTHIAZIDE 25 MG TABLET (FP) PO SCH (10:43)
--- NOTE | 2019-02-28 13:09 | PN ---
Progress Note, Physician History of Present Illness: stable no new issues swelling of the legs improving - Current Medication List Current Medications: Active Medications Albuterol/Ipratropium (Duoneb -) 1 amp NEB Q6H PRN PRN Reason: SHORTNESS OF BREATH Heparin Sodium (Porcine) (Heparin -) 5,000 unit SQ BID [facility] Last Admin: 02/28/19 10:40 Dose: 5,000 unit Hydrochlorothiazide (Hctz -) 25 mg PO DAILY [facility] Last Admin: 02/28/19 10:43 Dose: Not Given Vancomycin HCl 1,250 mg/ (Dextrose) 250 mls @ 166.667 mls/hr IVPB Q24H [facility]; Protocol Last Admin: 02/28/19 06:31 Dose: 166.667 mls/hr Piperacillin Sod/Tazobactam (Sod 3.375 gm/ Dextrose) 50 mls @ 100 mls/hr IVPB Q8H-IV [facility]; Protocol Last Admin: 02/28/19 10:35 Dose: 100 mls/hr Methadone HCl 30 mg/ Methadone (HCl 5 mg) 35 mg PO DAILY@0600 [facility] Last Admin: 02/28/19 06:29 Dose: 35 mg - Objective Vital Signs: Vital Signs Temperature 98.9 F 02/27/19 18:00 Pulse Rate 88 02/28/19 10:00 Respiratory Rate 18 02/28/19 10:00 Blood Pressure 142/78 02/28/19 10:00 O2 Sat by Pulse Oximetry (%) 96 02/28/19 09:00 Constitutional: Yes: No Distress, Calm Cardiovascular: Yes: S1, S2 Respiratory: Yes: Regular, CTA Bilaterally Gastrointestinal: Yes: Normal Bowel Sounds, Soft Musculoskeletal: Yes: WNL Extremities: Yes: Other Neurological: Yes: Alert, Oriented Psychiatric: Yes: Alert, Oriented Labs: CBC, BMP 02/24/19 06:40 02/24/19 06:40 Assessment/Plan Problem List - Problems (1) Hepatitis C carrier Code(s): Z22.52 - (2) Bilateral lower extremity edema Code(s): R60.0 - LOCALIZED EDEMA (3) COPD (chronic obstructive pulmonary disease) Code(s): J44.9 - CHRONIC OBSTRUCTIVE PULMONARY DISEASE, UNSPECIFIED 4 cellulits b/l ext plan continue abx monitor swelling of the legs rest as per the team
--- NOTE | 2019-02-28 21:27 | PN ---
Progress Note, Physician History of Present Illness: Pt has been refusing HCTZ - Current Medication List Current Medications: Active Medications Albuterol/Ipratropium (Duoneb -) 1 amp NEB Q6H PRN PRN Reason: SHORTNESS OF BREATH Heparin Sodium (Porcine) (Heparin -) 5,000 unit SQ BID [facility] Last Admin: 02/28/19 10:40 Dose: 5,000 unit Hydrochlorothiazide (Hctz -) 25 mg PO DAILY [facility] Last Admin: 02/28/19 10:43 Dose: Not Given Vancomycin HCl 1,250 mg/ (Dextrose) 250 mls @ 166.667 mls/hr IVPB Q24H [facility]; Protocol Last Admin: 02/28/19 06:31 Dose: 166.667 mls/hr Piperacillin Sod/Tazobactam (Sod 3.375 gm/ Dextrose) 50 mls @ 100 mls/hr IVPB Q8H-IV [facility]; Protocol Last Admin: 02/28/19 18:20 Dose: 100 mls/hr Methadone HCl 30 mg/ Methadone (HCl 5 mg) 35 mg PO DAILY@0600 [facility] Last Admin: 02/28/19 06:29 Dose: 35 mg - Objective Vital Signs: Vital Signs Temperature 98.1 F 02/28/19 18:00 Pulse Rate 77 02/28/19 18:00 Respiratory Rate 18 02/28/19 18:00 Blood Pressure 133/78 02/28/19 18:00 O2 Sat by Pulse Oximetry (%) 96 02/28/19 09:00 Neck: Yes: WNL, Supple Cardiovascular: Yes: WNL, Regular Rate and Rhythm Respiratory: Yes: WNL, Regular, CTA Bilaterally Gastrointestinal: Yes: WNL, Normal Bowel Sounds, Soft Extremities: Yes: Other ((+) erythema B/L lwoer extremities (+) swelling b/l thighs) Labs: CBC, BMP 02/24/19 06:40 02/24/19 06:40 Problem List - Problems (1) Cellulitis Assessment/Plan: Cont IV vanco/zosyn Keep legs elevated Code(s): L03.90 - CELLULITIS, UNSPECIFIED Qualifiers: Site of cellulitis of extremity: lower extremity Laterality: unspecified laterality (2) Bilateral lower extremity edema Assessment/Plan: Spoke to pt at length that he needs to take Hctz Keep legs elevated Vascular consult Check duplex of legs Code(s): R60.0 - LOCALIZED EDEMA (3) COPD (chronic obstructive pulmonary disease) Assessment/Plan: Cont duoneb Code(s): J44.9 - CHRONIC OBSTRUCTIVE PULMONARY DISEASE, UNSPECIFIED (4) Methadone maintenance therapy patient Assessment/Plan: Cont methadone Code(s): F11.20 - OPIOID DEPENDENCE, UNCOMPLICATED (5) Hepatitis C carrier Code(s): Z22.52 -
[2019-03-01] MEDS ORDERED: PIPERACILLIN/TAZOBACTAM 3.375 GM VIAL IVPB ONE ×3 (02:30→16:50)
[2019-03-01] MEDS ORDERED: DEXTROSE 5%-WATER - 50 ML IVPB ONE ×3 (02:31→16:50)
[2019-03-01] MEDS: PIPERACILLIN/TAZOB 3.375 GM 3.375 GM in DEXTROSE 5%-WATER - 50 ML IVPB SCH ×3 (02:41→17:08)
[2019-03-01] MEDS ORDERED: METHADONE HCL 5 MG TABLET ONE (06:29)
[2019-03-01] MEDS ORDERED: METHADONE HCL 10 MG TABLET ONE (06:29)
[2019-03-01] MEDS: VANCOMYCIN HCL 1,250 MG in DEXTROSE 5%-WATER - 250 ML IVPB SCH (06:43)
[2019-03-01] MEDS: METHADONE 30 MG, METHADONE 5 MG PO SCH (06:43)
[2019-03-01 08:38] LABS: BASO % 0.5 % (0-2.0); EOS % 1.5 % (0-4.5); HEMATOCRIT 48.4 % (35.4-49); HEMOGLOBIN 15.2 GM/dL (11.7-16.9); LYMPH % 28.5 % (8-40); MCHC 31.5 g/dl (32.0-35.9); MEAN CELL VOLUME 89.1 fl (80-96); MEAN PLT VOLUME 8.8 fl (7.5-11.1); NEUT % 51.5 % (42.8-82.8); PLATELET COUNT 310 K/MM3 (134-434); RBC 5.43 M/mm3 (4.00-5.60); RDW 17.4 % (11.9-15.9); WHITE BLOOD COUNT 3.5 K/mm3 (4.0-10.0)
[2019-03-01 09:08] LABS: ALBUMIN 2.4 g/dl (3.4-5.0); BILIRUBIN,TOTAL 0.8 mg/dL (0.2-1); BLOOD UREA NITROGEN 10.3 mg/dL (7-18); CALCIUM 9.1 mg/dL (8.5-10.1); CREATININE 0.8 mg/dL (0.55-1.3); POTASSIUM 4.8 mmol/L (3.5-5.1); TOT PROT 6.7 g/dl (6.4-8.2)
[2019-03-01] MEDS: HEPARIN NA (PORCINE) 5,000 UNITS/ML 1ML VIAL SQ SCH ×2 (10:54→21:32)
[2019-03-01] MEDS: HYDROCHLOROTHIAZIDE 25 MG TABLET (FP) PO SCH (11:05)
--- NOTE | 2019-03-01 15:55 | PN ---
Progress Note, Physician History of Present Illness: stable no new issues - Current Medication List Current Medications: Active Medications Albuterol/Ipratropium (Duoneb -) 1 amp NEB Q6H PRN PRN Reason: SHORTNESS OF BREATH Heparin Sodium (Porcine) (Heparin -) 5,000 unit SQ BID [facility] Last Admin: 03/01/19 10:54 Dose: 5,000 unit Hydrochlorothiazide (Hctz -) 25 mg PO DAILY [facility] Last Admin: 03/01/19 11:05 Dose: 25 mg Piperacillin Sod/Tazobactam (Sod 3.375 gm/ Dextrose) 50 mls @ 100 mls/hr IVPB Q8H-IV [facility]; Protocol Last Admin: 03/01/19 10:53 Dose: 100 mls/hr Methadone HCl 30 mg/ Methadone (HCl 5 mg) 35 mg PO DAILY@0600 [facility] Last Admin: 03/01/19 06:43 Dose: 35 mg - Objective Vital Signs: Vital Signs Temperature 99.0 F 03/01/19 14:00 Pulse Rate 79 03/01/19 14:00 Respiratory Rate 18 03/01/19 14:00 Blood Pressure 125/79 03/01/19 14:00 O2 Sat by Pulse Oximetry (%) 95 03/01/19 09:00 Constitutional: Yes: No Distress, Calm Cardiovascular: Yes: S1, S2 Respiratory: Yes: Regular, CTA Bilaterally Gastrointestinal: Yes: Normal Bowel Sounds, Soft Musculoskeletal: Yes: WNL Extremities: Yes: Other Neurological: Yes: Alert, Oriented Psychiatric: Yes: Alert, Oriented Labs: CBC, BMP 03/01/19 07:40 03/01/19 07:40 Assessment/Plan Problem List - Problems (1) Hepatitis C carrier Code(s): Z22.52 - (2) Bilateral lower extremity edema Code(s): R60.0 - LOCALIZED EDEMA (3) COPD (chronic obstructive pulmonary disease) Code(s): J44.9 - CHRONIC OBSTRUCTIVE PULMONARY DISEASE, UNSPECIFIED 4 cellulits b/l ext plan continue abx u/s results noted might need lymph node biopsy elevation of the leg
--- NOTE | 2019-03-01 20:54 | PN ---
Progress Note, Physician History of Present Illness: No new complaints - Current Medication List Current Medications: Active Medications Albuterol/Ipratropium (Duoneb -) 1 amp NEB Q6H PRN PRN Reason: SHORTNESS OF BREATH Heparin Sodium (Porcine) (Heparin -) 5,000 unit SQ BID [facility] Last Admin: 03/01/19 10:54 Dose: 5,000 unit Hydrochlorothiazide (Hctz -) 25 mg PO DAILY [facility] Last Admin: 03/01/19 11:05 Dose: 25 mg Piperacillin Sod/Tazobactam (Sod 3.375 gm/ Dextrose) 50 mls @ 100 mls/hr IVPB Q8H-IV [facility]; Protocol Last Admin: 03/01/19 17:08 Dose: 100 mls/hr Methadone HCl 30 mg/ Methadone (HCl 5 mg) 35 mg PO DAILY@0600 [facility] Last Admin: 03/01/19 06:43 Dose: 35 mg - Objective Vital Signs: Vital Signs Temperature 98.2 F 03/01/19 18:00 Pulse Rate 91 H 03/01/19 18:00 Respiratory Rate 18 03/01/19 18:00 Blood Pressure 104/64 03/01/19 18:00 O2 Sat by Pulse Oximetry (%) 95 03/01/19 09:00 Neck: Yes: WNL, Supple Cardiovascular: Yes: WNL, Regular Rate and Rhythm Respiratory: Yes: WNL, Regular, CTA Bilaterally Gastrointestinal: Yes: WNL, Normal Bowel Sounds, Soft Extremities: Yes: Other ((+) b/l erythema (+) swelling of thighs) Labs: CBC, BMP 03/01/19 07:40 03/01/19 07:40 Problem List - Problems (1) Cellulitis Assessment/Plan: Cont IV zosyn Keep legs elevated Code(s): L03.90 - CELLULITIS, UNSPECIFIED Qualifiers: Site of cellulitis of extremity: lower extremity Laterality: unspecified laterality (2) Bilateral lower extremity edema Assessment/Plan: Spoke to pt at length that he needs to take Hctz Keep legs elevated Vascular consult Duplex of lower extremities are negative for DVT but isaiah inguinal lymphadenopathy Check ct scan abd/pelvis for adenopathy Code(s): R60.0 - LOCALIZED EDEMA (3) COPD (chronic obstructive pulmonary disease) Assessment/Plan: Cont duoneb Code(s): J44.9 - CHRONIC OBSTRUCTIVE PULMONARY DISEASE, UNSPECIFIED (4) Methadone maintenance therapy patient Assessment/Plan: Cont methadone Code(s): F11.20 - OPIOID DEPENDENCE, UNCOMPLICATED (5) Hepatitis C carrier Code(s): Z22.52 -
[2019-03-02] MEDS ORDERED: PIPERACILLIN/TAZOBACTAM 3.375 GM VIAL IVPB ONE ×3 (01:54→17:29)
[2019-03-02] MEDS ORDERED: DEXTROSE 5%-WATER - 50 ML IVPB ONE ×3 (01:55→17:29)
[2019-03-02] MEDS: PIPERACILLIN/TAZOB 3.375 GM 3.375 GM in DEXTROSE 5%-WATER - 50 ML IVPB SCH ×3 (02:49→17:34)
[2019-03-02] MEDS ORDERED: METHADONE HCL 10 MG TABLET ONE (05:49)
[2019-03-02] MEDS ORDERED: METHADONE HCL 5 MG TABLET ONE (05:49)
[2019-03-02] MEDS: METHADONE 30 MG, METHADONE 5 MG PO SCH (06:12)
--- NOTE | 2019-03-02 09:18 | CONSULT ---
- Consultation REQUESTING PROVIDER: CONSULT REQUEST: We have been asked to surgically evaluate this patient for left LE lymphedema/PVD PCP:Camille Damico 2 History of Present Illness: Pt 58yo M with PMH of COPD (on 3L oxygen at home), heroin abuse (on methadone), peripheral vascular disease. Patient states he has noted increased swelling and redness to his legs over the past 3 days. He was last admitted to the hospital in October 2018 for bilateral lower leg cellulitis and left LE chronic non- healing wound. He denies any fevers, chills, chest pain, or shortness of breath. - Past Medical History Pulmonary: Yes: Asthma Psych: Yes: Addictions, Other - Past Surgical History Past Surgical History: Yes: None - Smoking History Smoking history: Current every day smoker Have you smoked in the past 12 months: Yes Aproximately how many cigarettes per day: 2 - Alcohol/Substance Use Hx Alcohol Use: No History of Substance Use: reports: Heroin (quit 1 year ago, now on methadone program) - Social History ADL: Independent Occupation: previously did [employer] work and [employer] History of Recent Travel: No Home Medications - Allergies Allergies/Adverse Reactions: Allergies Allergy/AdvReac Type Severity Reaction Status Date / Time No Known Allergies Allergy Verified 10/17/18 18:16 - Home Medications Home Medications: Ambulatory Orders Albuterol Sulfate Inhaler - [Ventolin HFA Inhaler -] 1 inh PO QID 10/17/18 Albuterol 2.5/Ipratropium 0.5 [Duoneb -] 1 amp NEB Q6H PRN #90 amp 10/23/18 Bacitracin - [Bacitracin Topical Ointment -] 1 applic TP DAILY #1 tube 10/23/18 Hydrochlorothiazide [Hctz -] 25 mg PO DAILY #30 tablet 10/23/18 Methadone [Dolophine -] 35 mg PO DAILY 01/15/19 Family Medical History Family History: Unremarkable Review of Systems - Review of Systems Constitutional: reports: No Symptoms Eyes: reports: No Symptoms HENT: reports: No Symptoms Neck: reports: No Symptoms Cardiovascular: reports: No Symptoms Respiratory: reports: No Symptoms Gastrointestinal: reports: No Symptoms Genitourinary: reports: No Symptoms Vital Signs Temp 99.5 F 03/02/19 06:31 Pulse 79 03/02/19 06:31 Resp 20 03/02/19 06:31 BP 146/86 03/02/19 06:31 Pulse Ox 95 03/01/19 21:00 Intake & Output 03/01/19 03/01/19 03/02/19 11:59 23:59 11:59 Intake Total 900 1650 430 Balance 900 1650 430 Intake: IVPB 300 50 Oral 600 1650 380 Other: Voiding Method Toilet Toilet Toilet # Unmeasured Voids Void 2 4 2 Bowel Movement No No No CBC, BMP 03/01/19 07:40 03/01/19 07:40 PE: General: Awake, alert, and fully oriented, in no acute distress Head: No signs of trauma Eyes: EOMI, sclera anicteric Lungs: unlabored resp on RA BL LE with diffuse erythema, and +1 pitting edema and warmth extending from knees to ankles R>L. Left LE thigh soft supple. Large healing wound over left anterior santana @ 6x6cm, no active d/c or odor. b/l LE compartments tense but compressible. warm with some erythema. foot warm and well perfused with +1 DP and TP pulses. no pain with AROM and PROM with dorsi/plantar flexion and 5/5 strength SKIN: Warm, Dry, normal turgor Neurologic: Cranial nerves II through XII grossly intact. Normal speech Duplex of B/L LE 02/28: No evidence of DVT Problem List - Problems (1) Cellulitis Assessment/Plan: 58 yo male with b/l cellulitis L>R in the setting of PVD and left chronic leg wound-currently closed, with no indication for vascular intervention at this time. 1) IV ABX per ID 2) bacitracin and clean dry dressing to left LE wond-currently closed and healing well 3) Elevate B/L LE above level of heart while in bed 4) OOB as tolerated 5) f/u with Dr Rueda in wound care clinic as discussed. Code(s): L03.90 - CELLULITIS, UNSPECIFIED Qualifiers: Site of cellulitis of extremity: lower extremity Laterality: unspecified laterality (2) Bilateral lower extremity edema Code(s): R60.0 - LOCALIZED EDEMA
--- NOTE | 2019-03-02 09:59 | PN ---
Progress Note, Physician History of Present Illness: stable legs look much better - Current Medication List Current Medications: Active Medications Albuterol/Ipratropium (Duoneb -) 1 amp NEB Q6H PRN PRN Reason: SHORTNESS OF BREATH Heparin Sodium (Porcine) (Heparin -) 5,000 unit SQ BID [facility] Last Admin: 03/01/19 21:32 Dose: 5,000 unit Hydrochlorothiazide (Hctz -) 25 mg PO DAILY [facility] Last Admin: 03/01/19 11:05 Dose: 25 mg Piperacillin Sod/Tazobactam (Sod 3.375 gm/ Dextrose) 50 mls @ 100 mls/hr IVPB Q8H-IV [facility]; Protocol Last Admin: 03/02/19 02:49 Dose: 100 mls/hr Methadone HCl 30 mg/ Methadone (HCl 5 mg) 35 mg PO DAILY@0600 [facility] Last Admin: 03/02/19 06:12 Dose: 35 mg - Objective Vital Signs: Vital Signs Temperature 99.5 F 03/02/19 06:31 Pulse Rate 79 03/02/19 06:31 Respiratory Rate 20 03/02/19 06:31 Blood Pressure 146/86 03/02/19 06:31 O2 Sat by Pulse Oximetry (%) 95 03/01/19 21:00 Constitutional: Yes: No Distress, Calm Cardiovascular: Yes: S1, S2 Respiratory: Yes: Regular, CTA Bilaterally Gastrointestinal: Yes: Normal Bowel Sounds, Soft Musculoskeletal: Yes: WNL Extremities: Yes: Other Neurological: Yes: Alert, Oriented Psychiatric: Yes: Alert, Oriented Labs: CBC, BMP 03/01/19 07:40 03/01/19 07:40 Assessment/Plan Problem List - Problems (1) Hepatitis C carrier Code(s): Z22.52 - (2) Bilateral lower extremity edema Code(s): R60.0 - LOCALIZED EDEMA (3) COPD (chronic obstructive pulmonary disease) Code(s): J44.9 - CHRONIC OBSTRUCTIVE PULMONARY DISEASE, UNSPECIFIED 4 cellulits b/l ext plan continue abx will decide further mgmt
[2019-03-02] MEDS: HEPARIN NA (PORCINE) 5,000 UNITS/ML 1ML VIAL SQ SCH ×2 (10:02→22:08)
[2019-03-02] MEDS: HYDROCHLOROTHIAZIDE 25 MG TABLET (FP) PO SCH (10:02)
[2019-03-02] MEDS ORDERED: BACITRACIN 15 GM TUBE TOPICAL OINTMENT TP SCH ×2 (12:30)
[2019-03-02 14:43] VITALS: BMI 26.9
--- NOTE | 2019-03-02 23:50 | PN ---
Progress Note, Physician - Current Medication List Current Medications: Active Medications Albuterol/Ipratropium (Duoneb -) 1 amp NEB Q6H PRN PRN Reason: SHORTNESS OF BREATH Last Admin: 03/02/19 20:30 Dose: 1 amp Heparin Sodium (Porcine) (Heparin -) 5,000 unit SQ BID [facility] Last Admin: 03/02/19 22:08 Dose: 5,000 unit Hydrochlorothiazide (Hctz -) 25 mg PO DAILY [facility] Last Admin: 03/02/19 10:02 Dose: 25 mg Piperacillin Sod/Tazobactam (Sod 3.375 gm/ Dextrose) 50 mls @ 100 mls/hr IVPB Q8H-IV [facility]; Protocol Last Admin: 03/02/19 17:34 Dose: 100 mls/hr Methadone HCl 30 mg/ Methadone (HCl 5 mg) 35 mg PO DAILY@0600 [facility] Last Admin: 03/02/19 06:12 Dose: 35 mg - Objective Vital Signs: Vital Signs Temperature 98.8 F 03/02/19 22:00 Pulse Rate 78 03/02/19 22:00 Respiratory Rate 20 03/02/19 22:00 Blood Pressure 155/96 03/02/19 22:00 O2 Sat by Pulse Oximetry (%) 96 03/02/19 21:00 Labs: CBC, BMP 03/01/19 07:40 03/01/19 07:40 Problem List - Problems (1) Cellulitis Code(s): L03.90 - CELLULITIS, UNSPECIFIED Qualifiers: Site of cellulitis of extremity: lower extremity Laterality: unspecified laterality (2) Bilateral lower extremity edema Code(s): R60.0 - LOCALIZED EDEMA (3) COPD (chronic obstructive pulmonary disease) Code(s): J44.9 - CHRONIC OBSTRUCTIVE PULMONARY DISEASE, UNSPECIFIED (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
[2019-03-03] MEDS ORDERED: DEXTROSE 5%-WATER - 50 ML IVPB ONE ×2 (01:25→10:10)
[2019-03-03] MEDS ORDERED: PIPERACILLIN/TAZOBACTAM 3.375 GM VIAL IVPB ONE ×2 (01:25→10:10)
[2019-03-03] MEDS: PIPERACILLIN/TAZOB 3.375 GM 3.375 GM in DEXTROSE 5%-WATER - 50 ML IVPB SCH ×2 (02:49→10:42)
[2019-03-03] MEDS ORDERED: METHADONE HCL 5 MG TABLET ONE (06:01)
[2019-03-03] MEDS ORDERED: METHADONE HCL 10 MG TABLET ONE (06:02)
[2019-03-03] MEDS: METHADONE 30 MG, METHADONE 5 MG PO SCH (06:08)
[2019-03-03] MEDS: HYDROCHLOROTHIAZIDE 25 MG TABLET (FP) PO SCH (10:41)
--- NOTE | 2019-03-03 11:04 | PN ---
Progress Note, Physician History of Present Illness: stable no new issues legs look much better - Current Medication List Current Medications: Active Medications Albuterol/Ipratropium (Duoneb -) 1 amp NEB Q6H PRN PRN Reason: SHORTNESS OF BREATH Last Admin: 03/02/19 20:30 Dose: 1 amp Hydrochlorothiazide (Hctz -) 25 mg PO DAILY [facility] Last Admin: 03/03/19 10:41 Dose: 25 mg Piperacillin Sod/Tazobactam (Sod 3.375 gm/ Dextrose) 50 mls @ 100 mls/hr IVPB Q8H-IV [facility]; Protocol Last Admin: 03/03/19 10:42 Dose: 100 mls/hr Methadone HCl 30 mg/ Methadone (HCl 5 mg) 35 mg PO DAILY@0600 [facility] Last Admin: 03/03/19 06:08 Dose: 35 mg - Objective Vital Signs: Vital Signs Temperature 98.6 F 03/03/19 06:00 Pulse Rate 78 03/03/19 06:00 Respiratory Rate 20 03/03/19 06:00 Blood Pressure 140/98 03/03/19 06:00 O2 Sat by Pulse Oximetry (%) 96 03/02/19 21:00 Constitutional: Yes: No Distress Cardiovascular: Yes: Regular Rate and Rhythm Respiratory: Yes: Regular, CTA Bilaterally Gastrointestinal: Yes: Normal Bowel Sounds, Soft Musculoskeletal: Yes: WNL Extremities: Yes: Erythema (resolving), Other Wound/Incision: Yes: Other (wound looks better) Labs: CBC, BMP 03/01/19 07:40 03/01/19 07:40 Assessment/Plan Problem List - Problems (1) Hepatitis C carrier Code(s): Z22.52 - (2) Bilateral lower extremity edema Code(s): R60.0 - LOCALIZED EDEMA (3) COPD (chronic obstructive pulmonary disease) Code(s): J44.9 - CHRONIC OBSTRUCTIVE PULMONARY DISEASE, UNSPECIFIED 4 cellulits b/l ext plan continue abx will change to oral probably needs lymph node biopsy rest as per the team
[2019-03-03 12:55] VITALS: PULSE 74
[2019-03-03 14:39] VITALS: BP 153/79; TEMP 98.9
[2019-03-03] MEDS ORDERED: AMOX TR/POT CLAV 875MG/125MG TABLETS (FP) PO SCH (17:30)
== END 2019-03-03 17:40 | disposition home or self-care (01) | DRG 383 ==
LOC: JER 15:30 → JERBED 18:35 → J5S 21:31
PROVIDERS: ADMIT Internal Medicine; ATTEND Internal Medicine
DX: L03.116 Cellulitis of left lower limb (principal); L03.115 Cellulitis of right lower limb; B18.2 Chronic viral hepatitis C; J44.9 Chronic obstructive pulmonary disease, unspecified; I73.9 Peripheral vascular disease, unspecified; F17.210 Nicotine dependence, cigarettes, uncomplicated; R60.0 Localized edema; F11.20 Opioid dependence, uncomplicated; L97.828 Non-pressure chronic ulcer of other part of left lower leg with other specified severity; L97.818 Non-pressure chronic ulcer of other part of right lower leg with other specified severity
CPT/HCPCS: 36415; 74177-TC; 80053; 85025; 87040; 93970-TC; 94640; 99285-25; A6196; G0463-25; J1644; Q9967

== ENCOUNTER 2020-10-23 13:13 | Emergency (ER) | payer OTHER ==
[2020-10-23 13:39] VITALS: BMI 26.6
[2020-10-23] MEDS ORDERED: ACETAMINOPHEN 500 MG TABLET (FP) PO ONE (14:07)
[2020-10-23] MEDS ORDERED: ACETAMINOPHEN 325 MG TABLET (FP) ONE (14:16)
[2020-10-23 14:44] LABS: BASO % 0.5 % (0-2.0); EOS % 0.2 % (0-4.5); HEMATOCRIT 57.1 % (35.4-49); HEMOGLOBIN 18.5 GM/dL (11.7-16.9); LYMPH % 7.1 % (8-40); MCH 30.6 pg (25.7-33.7); MCHC 32.3 g/dl (32.0-35.9); MEAN CELL VOLUME 94.6 fl (80-96); MEAN PLT VOLUME 8.4 fl (7.5-11.1); MONO % 7.3 % (3.8-10.2); NEUT % 84.9 % (42.8-82.8); PLATELET COUNT 177 10^3/uL (134-434); RBC 6.04 M/mm3 (4.00-5.60); RDW 18.9 % (11.9-15.9); WHITE BLOOD COUNT 8.4 K/mm3 (4.0-10.0)
[2020-10-23 14:53] LABS: INR 1.22 (0.83-1.09); PROTHROMBIN TIME (PATIENT) 14.7 SEC (9.7-13.0)
[2020-10-23 14:56] LABS: ACTIVATED PTT 32.1 SECONDS (25.2-36.5)
[2020-10-23 15:03] LABS: CHLORIDE 104 mmol/L (98-107); SODIUM 141 mmol/L (136-145)
[2020-10-23 15:05] LABS: CALCIUM 8.4 mg/dL (8.5-10.1)
[2020-10-23 15:06] LABS: ALBUMIN 2.8 g/dl (3.4-5.0); BLOOD UREA NITROGEN 16.3 mg/dL (7-18); CO2 35 mmol/L (21-32); GLUCOSE,RANDOM 53 mg/dL (74-106)
[2020-10-23 15:09] LABS: CREATININE 1.2 mg/dL (0.55-1.3); SGOT/AST 86 U/L (15-37)
[2020-10-23 15:10] LABS: TOT PROT 6.6 g/dl (6.4-8.2)
[2020-10-23 15:12] LABS: ALK PHOS 145 U/L (45-117); BILIRUBIN,TOTAL 1.8 mg/dL (0.2-1)
[2020-10-23 15:14] LABS: N-TERMINAL BNP 1859.7 pg/ml (5-125)
[2020-10-23 15:17] LABS: ANION GAP 2 MMOL/L (8-16); SGPT/ALT 28 U/L (13-61)
[2020-10-23 15:30] LABS: URINE APPEARANCE Error; URINE BILIRUBIN NEGATIVE (NEGATIVE); URINE COLOR YELLOW; URINE GLUCOSE (UA) NEGATIVE (NEGATIVE); URINE KETONE NEGATIVE (NEGATIVE); URINE LEUK ESTERASE NEGATIVE (NEGATIVE); URINE NITRITE NEGATIVE (NEGATIVE); URINE PROTEIN NEGATIVE (NEGATIVE); URINE UROBILINOGEN 0.2 mg/dL (0.2-1.0)
[2020-10-23 17:55] LABS: ALBUMIN 3.3 g/dl (3.4-5.0); BLOOD UREA NITROGEN 17.8 mg/dL (7-18); CALCIUM 8.7 mg/dL (8.5-10.1)
[2020-10-23 18:00] LABS: TOT PROT 6.7 g/dl (6.4-8.2)
[2020-10-23 18:49] VITALS: BP 154/71; PULSE 95; TEMP 98.9
== END 2020-10-23 18:50 | disposition home or self-care (01) ==
LOC: JER 13:13
DX: L03.90 Cellulitis, unspecified (principal); D58.2 Other hemoglobinopathies; E80.7 Disorder of bilirubin metabolism, unspecified
CPT/HCPCS: 36415; 71045-TC-FY; 76705-TC; 80053; 81003; 83605; 83880; 85025; 85610; 85730; 87040; 87086; 93005; 93010; 93970-TC; 99284-25; C9803; U0003; U0005

== ENCOUNTER 2020-11-14 11:57 | Inpatient (IN) | payer OTHER ==
[2020-11-14 13:20] LABS: BASO % 0.4 % (0-2.0); EOS % 0.4 % (0-4.5); HEMATOCRIT 55.2 % (35.4-49); LYMPH % 13.1 % (8-40); MCH 30.9 pg (25.7-33.7); MCHC 32.6 g/dl (32.0-35.9); MEAN CELL VOLUME 94.8 fl (80-96); MEAN PLT VOLUME 9.3 fl (7.5-11.1); MONO % 11.4 % (3.8-10.2); NEUT % 74.7 % (42.8-82.8); PLATELET COUNT 238 10^3/uL (134-434); RBC 5.82 M/mm3 (4.00-5.60); RDW 17.7 % (11.9-15.9); WHITE BLOOD COUNT 5.1 K/mm3 (4.0-10.0)
[2020-11-14 13:21] LABS: URINE APPEARANCE CLEAR; URINE BILIRUBIN NEGATIVE (NEGATIVE); URINE COLOR YELLOW; URINE GLUCOSE (UA) NEGATIVE (NEGATIVE); URINE KETONE NEGATIVE (NEGATIVE); URINE LEUK ESTERASE NEGATIVE (NEGATIVE); URINE NITRITE NEGATIVE (NEGATIVE); URINE PROTEIN NEGATIVE (NEGATIVE); URINE UROBILINOGEN 4.0 E.U/dl mg/dL (0.2-1.0)
[2020-11-14 13:25] LABS: INR 1.36 (0.83-1.09); PROTHROMBIN TIME (PATIENT) 16.3 SEC (9.7-13.0)
[2020-11-14 13:27] LABS: ACTIVATED PTT 37.3 SECONDS (25.2-36.5)
[2020-11-14] MEDS ORDERED: PIPERACILLIN/TAZOB 3.375 GM 3.375 GM in DEXTROSE 5%-WATER - 50 ML IVPB ONE (13:36)
[2020-11-14 13:46] LABS: CHLORIDE 99 mmol/L (98-107); SODIUM 139 mmol/L (136-145)
[2020-11-14 13:48] LABS: ALBUMIN 2.3 g/dl (3.4-5.0); CALCIUM 8.3 mg/dL (8.5-10.1)
[2020-11-14 13:49] LABS: BLOOD UREA NITROGEN 12.5 mg/dL (7-18); CO2 45 mmol/L (21-32); GLUCOSE,RANDOM 97 mg/dL (74-106)
[2020-11-14 13:52] LABS: SGOT/AST 76 U/L (15-37)
[2020-11-14 13:53] LABS: BILIRUBIN,TOTAL 1.4 mg/dL (0.2-1); TOT PROT 6.7 g/dl (6.4-8.2)
[2020-11-14 13:54] LABS: ALK PHOS 152 U/L (45-117)
[2020-11-14 13:57] LABS: N-TERMINAL BNP 3826.9 pg/ml (5-125)
[2020-11-14] MEDS ORDERED: PIPERACILLIN/TAZOB 3.375 GM 3.375 GM/50 ML BAG IVPB ONE (14:17)
[2020-11-14 14:22] LABS: ANION GAP -5 MMOL/L (8-16); SGPT/ALT 24 U/L (13-61)
[2020-11-14 16:05] LABS: CALCIUM 8.2 mg/dL (8.5-10.1)
[2020-11-14 16:06] LABS: BLOOD UREA NITROGEN 12.8 mg/dL (7-18)
[2020-11-14] MEDS ORDERED: LISINOPRIL 10 MG TABLET PO ONE (18:44)
[2020-11-14] MEDS ORDERED: HYDROCHLOROTHIAZIDE 12.5 MG CAPSULE (FP) PO ONE (18:45)
[2020-11-14] MEDS ORDERED: HYDROCHLOROTHIAZIDE 25 MG TABLET (FP) ONE (19:39)
[2020-11-14] MEDS ORDERED: LISINOPRIL 5 MG TABLET ONE (19:39)
[2020-11-14] MEDS ORDERED: ALBUTEROL SO4 0.083% IH SOL 2.5 MG/3 ML VIAL.NEB. NEB PRN (19:42)
[2020-11-14] MEDS ORDERED: FUROSEMIDE 40 MG/4 ML INJECTABLE VIAL ONE (21:48)
[2020-11-14] MEDS: FUROSEMIDE 40 MG/4 ML INJECTABLE VIAL IVPUSH SCH (21:54)
[2020-11-14] MEDS: BUDESONIDE/FORMETEROL FUMARATE 80/4.5 mcg INHALER IH SCH (23:03)
[2020-11-14 23:19] VITALS: BMI 23.8
[2020-11-14] MEDS ORDERED: HEPARIN - 25,000 UNIT in SODIUM CHLORIDE 495 ML IV SCH (23:45)
[2020-11-14] MEDS ORDERED: HEPARIN NA (PORCINE) 5,000 UNITS/ML 1ML VIAL IVPUSH PRN ×2 (23:46)
[2020-11-14] MEDS ORDERED: ACETAMINOPHEN 1000 MG/100 ML VIAL (NON FORMULARY) IVPB PRN (23:49)
[2020-11-15] MEDS ORDERED: ACETAMINOPHEN 1000 MG/100 ML VIAL (NON FORMULARY) IVPB PRN (00:19)
[2020-11-15] MEDS ORDERED: DEXTROSE 5%-WATER - 50 ML IVPB ONE ×2 (01:18→10:58)
[2020-11-15] MEDS ORDERED: PIPERACILLIN/TAZOBACTAM 3.375 GM VIAL IVPB ONE ×2 (01:18→10:58)
[2020-11-15] MEDS: PIPERACILLIN/TAZOB 3.375 GM 3.375 GM in DEXTROSE 5%-WATER - 50 ML IVPB SCH ×3 (01:22→18:46)
[2020-11-15] MEDS ORDERED: PIPERACILLIN/TAZOB 3.375 GM 3.375 GM in DEXTROSE 5%-WATER - 50 ML IVPB SCH (02:00)
[2020-11-15 08:08] LABS: HEMATOCRIT 53.2 % (35.4-49); HEMOGLOBIN 17.3 GM/dL (11.7-16.9); MCH 30.8 pg (25.7-33.7); MCHC 32.5 g/dl (32.0-35.9); MEAN CELL VOLUME 94.6 fl (80-96); MEAN PLT VOLUME 9.4 fl (7.5-11.1); PLATELET COUNT 236 10^3/uL (134-434); RBC 5.63 M/mm3 (4.00-5.60); RDW 17.7 % (11.9-15.9); WHITE BLOOD COUNT 3.7 K/mm3 (4.0-10.0)
[2020-11-15 08:24] LABS: CHLORIDE 101 mmol/L (98-107); SODIUM 144 mmol/L (136-145)
[2020-11-15 08:28] LABS: ALBUMIN 2.1 g/dl (3.4-5.0)
[2020-11-15 08:29] LABS: BLOOD UREA NITROGEN 10.4 mg/dL (7-18); GLUCOSE,RANDOM 66 mg/dL (74-106); MAGNESIUM 1.9 mg/dL (1.8-2.4)
[2020-11-15 08:31] LABS: PHOSPHOROUS 3.6 mg/dL (2.5-4.9); SGPT/ALT 15 U/L (13-61)
[2020-11-15 08:32] LABS: CHOLESTEROL 92 mg/dL (50-200); CREATININE 0.8 mg/dL (0.55-1.3); SGOT/AST 23 U/L (15-37); TRIGLYCERIDES 64 mg/dL (0-150)
[2020-11-15 08:33] LABS: BILIRUBIN,TOTAL 1.1 mg/dL (0.2-1); TOT PROT 5.5 g/dl (6.4-8.2)
[2020-11-15 08:34] LABS: ALK PHOS 130 U/L (45-117); HDL CHOLESTEROL 41 mg/dL (40-60); LDL CHOLESTEROL (ONLY DFH) 38 mg/dl (5-100)
[2020-11-15 08:47] LABS: ANION GAP -1 MMOL/L (8-16); CO2 > 45 mmol/L (21-32)
[2020-11-15] MEDS ORDERED: ENOXAPARIN NA (PORCINE) 40 MG/0.4 ML DISP.SYRIN SQ SCH (10:00)
[2020-11-15] MEDS ORDERED: methaDONE HCL 10 MG TABLET (FOR DETOX USE ONLY) PO SCH (10:00)
[2020-11-15] MEDS: HYDROCHLOROTHIAZIDE 12.5 MG CAPSULE (FP) PO SCH (11:03)
[2020-11-15] MEDS: FUROSEMIDE 40 MG/4 ML INJECTABLE VIAL IVPUSH SCH (11:03)
[2020-11-15] MEDS: BUDESONIDE/FORMETEROL FUMARATE 80/4.5 mcg INHALER IH SCH ×2 (11:03→21:20)
[2020-11-15] MEDS: LISINOPRIL 10 MG TABLET PO SCH (11:03)
[2020-11-15] MEDS ORDERED: methaDONE HCL 10 MG TABLET (FOR DETOX USE ONLY) PO ONE (11:10)
[2020-11-15] MEDS ORDERED: methaDONE HCL 10 MG TABLET ONE (12:21)
[2020-11-15] MEDS ORDERED: AMPICILLIN NA/SULBACTAM NA 1.5 GM in SODIUM CHLORIDE 100 ML IVPB SCH (18:00)
[2020-11-15] MEDS: AMPICILLIN NA/SULBACTAM NA 1.5 GM in SODIUM CHLORIDE 100 ML IVPB SCH (19:54)
[2020-11-16] MEDS: AMPICILLIN NA/SULBACTAM NA 1.5 GM in SODIUM CHLORIDE 100 ML IVPB SCH ×3 (01:33→18:53)
[2020-11-16 08:00] LABS: HEMATOCRIT 55.1 % (35.4-49); HEMOGLOBIN 17.7 GM/dL (11.7-16.9); MCH 30.5 pg (25.7-33.7); MCHC 32.2 g/dl (32.0-35.9); MEAN CELL VOLUME 94.7 fl (80-96); MEAN PLT VOLUME 8.6 fl (7.5-11.1); PLATELET COUNT 225 10^3/uL (134-434); RBC 5.82 M/mm3 (4.00-5.60); RDW 17.5 % (11.9-15.9); WHITE BLOOD COUNT 3.8 K/mm3 (4.0-10.0)
[2020-11-16] MEDS ORDERED: methaDONE HCL 10 MG TABLET ONE (08:46)
[2020-11-16 10:01] LABS: CHLORIDE 98 mmol/L (98-107); SODIUM 145 mmol/L (136-145)
[2020-11-16 10:03] LABS: CALCIUM 8.3 mg/dL (8.5-10.1)
[2020-11-16 10:04] LABS: BLOOD UREA NITROGEN 12.1 mg/dL (7-18); GLUCOSE,RANDOM 113 mg/dL (74-106)
[2020-11-16 10:07] LABS: CREATININE 1.1 mg/dL (0.55-1.3); SGOT/AST 23 U/L (15-37); SGPT/ALT 12 U/L (13-61)
[2020-11-16 10:08] LABS: BILIRUBIN,TOTAL 0.9 mg/dL (0.2-1); TOT PROT 5.5 g/dl (6.4-8.2)
[2020-11-16 10:09] LABS: ALK PHOS 127 U/L (45-117)
[2020-11-16 10:15] LABS: ANION GAP 2 MMOL/L (8-16); CO2 > 45 mmol/L (21-32)
[2020-11-16] MEDS ORDERED: SODIUM CHLORIDE 100 ML IVPB ONE ×2 (10:25→18:11)
[2020-11-16] MEDS ORDERED: AMPICILLIN NA/SULBACTAM NA 1.5 GM VIAL ONE ×2 (10:25→18:11)
[2020-11-16] MEDS: FUROSEMIDE 40 MG/4 ML INJECTABLE VIAL IVPUSH SCH (10:38)
[2020-11-16] MEDS: HYDROCHLOROTHIAZIDE 12.5 MG CAPSULE (FP) PO SCH (10:38)
[2020-11-16] MEDS: LISINOPRIL 10 MG TABLET PO SCH (10:38)
[2020-11-16] MEDS: BUDESONIDE/FORMETEROL FUMARATE 80/4.5 mcg INHALER IH SCH ×2 (10:39→21:22)
[2020-11-16] MEDS: ENOXAPARIN NA (PORCINE) 40 MG/0.4 ML DISP.SYRIN SQ SCH (18:53)
[2020-11-16] MEDS: MINERAL OIL/PET HY-PHL TOPICAL OINTMENT 454 GM JAR TP SCH (21:46)
[2020-11-17] MEDS ORDERED: AMPICILLIN NA/SULBACTAM NA 1.5 GM VIAL ONE ×3 (00:44→18:14)
[2020-11-17] MEDS ORDERED: SODIUM CHLORIDE 100 ML IVPB ONE ×3 (00:45→18:14)
[2020-11-17] MEDS: AMPICILLIN NA/SULBACTAM NA 1.5 GM in SODIUM CHLORIDE 100 ML IVPB SCH ×3 (01:25→18:20)
[2020-11-17] MEDS ORDERED: methaDONE HCL 10 MG TABLET ONE (05:21)
[2020-11-17 07:28] LABS: HEMATOCRIT 57.8 % (35.4-49); HEMOGLOBIN 18.5 GM/dL (11.7-16.9); MCH 30.2 pg (25.7-33.7); MCHC 32.1 g/dl (32.0-35.9); MEAN CELL VOLUME 94.1 fl (80-96); MEAN PLT VOLUME 9.1 fl (7.5-11.1); PLATELET COUNT 260 10^3/uL (134-434); RBC 6.14 M/mm3 (4.00-5.60); RDW 17.6 % (11.9-15.9); WHITE BLOOD COUNT 3.5 K/mm3 (4.0-10.0)
[2020-11-17 07:47] LABS: CHLORIDE 96 mmol/L (98-107); SODIUM 141 mmol/L (136-145)
[2020-11-17 07:51] LABS: BLOOD UREA NITROGEN 11.7 mg/dL (7-18); CALCIUM 8.7 mg/dL (8.5-10.1); GLUCOSE,RANDOM 88 mg/dL (74-106)
[2020-11-17 07:54] LABS: SGOT/AST 23 U/L (15-37); SGPT/ALT 15 U/L (13-61)
[2020-11-17 07:56] LABS: BILIRUBIN,TOTAL 0.9 mg/dL (0.2-1); TOT PROT 6.6 g/dl (6.4-8.2)
[2020-11-17 08:07] LABS: ALBUMIN 2.4 g/dl (3.4-5.0); ALK PHOS 162 U/L (45-117); ANION GAP 0 MMOL/L (8-16); CO2 > 45 mmol/L (21-32)
[2020-11-17] MEDS: HYDROCHLOROTHIAZIDE 12.5 MG CAPSULE (FP) PO SCH (09:45)
[2020-11-17] MEDS: ENOXAPARIN NA (PORCINE) 40 MG/0.4 ML DISP.SYRIN SQ SCH (09:45)
[2020-11-17] MEDS: LISINOPRIL 10 MG TABLET PO SCH (09:45)
[2020-11-17] MEDS: MINERAL OIL/PET HY-PHL TOPICAL OINTMENT 454 GM JAR TP SCH ×2 (09:47→21:52)
[2020-11-17] MEDS: BUDESONIDE/FORMETEROL FUMARATE 80/4.5 mcg INHALER IH SCH ×2 (09:54→21:53)
[2020-11-18] MEDS ORDERED: AMPICILLIN NA/SULBACTAM NA 1.5 GM VIAL ONE ×3 (01:46→16:46)
[2020-11-18] MEDS ORDERED: SODIUM CHLORIDE 100 ML IVPB ONE ×3 (01:46→16:46)
[2020-11-18] MEDS: AMPICILLIN NA/SULBACTAM NA 1.5 GM in SODIUM CHLORIDE 100 ML IVPB SCH ×3 (02:14→17:23)
[2020-11-18] MEDS ORDERED: methaDONE HCL 10 MG TABLET ONE (05:55)
[2020-11-18 08:19] LABS: HEMATOCRIT 55.2 % (35.4-49); HEMOGLOBIN 17.8 GM/dL (11.7-16.9); MCH 30.4 pg (25.7-33.7); MCHC 32.2 g/dl (32.0-35.9); MEAN CELL VOLUME 94.4 fl (80-96); MEAN PLT VOLUME 8.8 fl (7.5-11.1); PLATELET COUNT 239 10^3/uL (134-434); RBC 5.85 M/mm3 (4.00-5.60); RDW 17.3 % (11.9-15.9); WHITE BLOOD COUNT 3.6 K/mm3 (4.0-10.0)
[2020-11-18 08:43] LABS: BLOOD UREA NITROGEN 10.8 mg/dL (7-18); CALCIUM 9.1 mg/dL (8.5-10.1)
[2020-11-18 08:47] LABS: CREATININE 0.9 mg/dL (0.55-1.3)
[2020-11-18] MEDS ORDERED: SODIUM ZIRCONIUM CYCLOSILICATE (LOKELMA) 5 GM PACKET PO ONE ×3 (10:40→15:15)
[2020-11-18] MEDS: HYDROCHLOROTHIAZIDE 12.5 MG CAPSULE (FP) PO SCH (10:46)
[2020-11-18] MEDS: LISINOPRIL 10 MG TABLET PO SCH (10:46)
[2020-11-18] MEDS: ENOXAPARIN NA (PORCINE) 40 MG/0.4 ML DISP.SYRIN SQ SCH (10:46)
[2020-11-18] MEDS: MINERAL OIL/PET HY-PHL TOPICAL OINTMENT 454 GM JAR TP SCH (10:48)
[2020-11-18] MEDS: BUDESONIDE/FORMETEROL FUMARATE 80/4.5 mcg INHALER IH SCH (10:48)
[2020-11-18] MEDS ORDERED: NICOTINE 7 MG/24 HOURS TOPICAL PATCH TD SCH (11:00)
[2020-11-18 11:11] VITALS: TEMP 98.2
[2020-11-18 15:51] VITALS: BP 152/83; PULSE 78
== END 2020-11-18 18:46 | disposition home or self-care (01) | DRG 194 ==
LOC: JER 11:57 → JERBED 18:07 → J8W 22:01
PROVIDERS: ADMIT Internal Medicine; ATTEND Internal Medicine
PROC: HZ91ZZZ Pharmacotherapy for Substance Abuse Treatment, Methadone Maintenance (ICD-10-PCS; principal; 2020-11-14)
DX: I11.0 Hypertensive heart disease with heart failure (principal); J96.11 Chronic respiratory failure with hypoxia; L03.115 Cellulitis of right lower limb; Z99.81 Dependence on supplemental oxygen; F11.20 Opioid dependence, uncomplicated; L03.116 Cellulitis of left lower limb; J96.12 Chronic respiratory failure with hypercapnia; D75.1 Secondary polycythemia; F17.210 Nicotine dependence, cigarettes, uncomplicated; I10 Essential (primary) hypertension; I87.2 Venous insufficiency (chronic) (peripheral); J44.9 Chronic obstructive pulmonary disease, unspecified; I50.33 Acute on chronic diastolic (congestive) heart failure; I27.20 Pulmonary hypertension, unspecified
CPT/HCPCS: 36415; 71045-TC-FY; 73700-TC-RT; 80048; 80053; 80061; 81003; 82550; 82553; 83036; 83605; 83735; 83880; 84100; 84436; 84443; 84484; 85025; 85027; 85610; 85651; 85730; 86140; 87040; 87086; 93005; 93010; 93306-TC; 93970-TC; 97116-GP; 99285-25; C9803; J0131; U0003; U0005

== ENCOUNTER 2021-06-05 18:45 | Inpatient (IN) | payer OTHER ==
[2021-06-05] MEDS ORDERED: FUROSEMIDE 40 MG/4 ML INJECTABLE VIAL IVPUSH ONE ×2 (19:39→22:40)
[2021-06-05 19:48] LABS: BASO % 0.6 % (0-2.0); EOS % 0.2 % (0-4.5); HEMATOCRIT 53.4 % (35.4-49); HEMOGLOBIN 17.1 GM/dL (11.7-16.9); LYMPH % 19.5 % (8-40); MEAN CELL VOLUME 90.6 fl (80-96); MEAN PLT VOLUME 8.9 fl (7.5-11.1); NEUT % 63.7 % (42.8-82.8); PLATELET COUNT 201 10^3/uL (134-434); RBC 5.89 M/mm3 (4.00-5.60); RDW 18.2 % (11.9-15.9); VENOUS BASE EXCESS 4.9 mmol/L (-2-2); VENOUS O2 SATURATION 59.1 % (70-80); VENOUS PH 7.264 (7.310-7.410); WHITE BLOOD COUNT 3.2 K/mm3 (4.0-10.0)
[2021-06-05] MEDS ORDERED: FUROSEMIDE 40 MG/4 ML INJECTABLE VIAL ONE (19:49)
[2021-06-05 19:50] LABS: VENOUS PCO2 81.5 mmHg (38-52)
[2021-06-05 20:00] LABS: INR 1.81 (0.83-1.09); PROTHROMBIN TIME (PATIENT) 20.9 SEC (9.7-13.0)
[2021-06-05 20:03] LABS: ACTIVATED PTT 37.8 SECONDS (25.2-36.5)
[2021-06-05 20:17] LABS: CALCIUM 9.1 mg/dL (8.5-10.1)
[2021-06-05 20:18] LABS: ALBUMIN 2.8 g/dl (3.4-5.0); BLOOD UREA NITROGEN 32.6 mg/dL (7-18)
[2021-06-05 20:21] LABS: CREATININE 1.5 mg/dL (0.55-1.3)
[2021-06-05 20:23] LABS: TOT PROT 6.4 g/dl (6.4-8.2)
[2021-06-05 20:26] LABS: N-TERMINAL BNP 1834.5 pg/ml (5-125)
[2021-06-05] MEDS ORDERED: HYDROCHLOROTHIAZIDE 12.5 MG CAPSULE (FP) PO ONE (22:46)
[2021-06-05] MEDS ORDERED: LISINOPRIL 10 MG TABLET PO ONE (22:46)
[2021-06-05] MEDS ORDERED: HYDROCHLOROTHIAZIDE 25 MG TABLET (FP) ONE (22:53)
[2021-06-05] MEDS ORDERED: LISINOPRIL 10 MG TABLET ONE (22:53)
[2021-06-05 23:56] LABS: CHLORIDE 110 mmol/L (98-107); SODIUM 147 mmol/L (136-145)
[2021-06-05 23:58] LABS: ANION GAP 3 MMOL/L (8-16); BLOOD UREA NITROGEN 24.1 mg/dL (7-18); CO2 34 mmol/L (21-32); GLUCOSE,RANDOM 69 mg/dL (74-106)
[2021-06-06] MEDS ORDERED: POTASSIUM CHLORIDE TABS 20 MEQ TABLET.ER (FP) PO ONE ×2 (00:13→00:17)
[2021-06-06] MEDS ORDERED: MAGNESIUM SULF 50% (8.12 MEQ/2 ML-1 GM VIAL) IVPB ONE (00:17)
[2021-06-06] MEDS ORDERED: MAGNESIUM SULFATE IN WATER 2 GM/50 ML IVPB IVPB ONE (00:17)
[2021-06-06] MEDS ORDERED: FUROSEMIDE 40 MG/4 ML INJECTABLE VIAL IVPUSH ONE (01:22)
[2021-06-06] MEDS ORDERED: AZITHROMYCIN 250 MG TABLET PO ONE (01:24)
[2021-06-06] MEDS ORDERED: LEVALBUTEROL HCL 0.31 MG/3 ML VIAL.NEB IH PRN (01:24)
[2021-06-06] MEDS ORDERED: LORazepam 2 MG/ML SDV VIAL IVPUSH PRN (01:30)
[2021-06-06] MEDS ORDERED: AZITHROMYCIN 250 MG TABLET ONE (01:35)
[2021-06-06] MEDS ORDERED: methylPREDNISolone NA SUCC 40 MG/1 ML VIAL ONE (01:35)
[2021-06-06] MEDS ORDERED: THIAMINE HCL 200 MG/2 ML VIAL IVPB ONE (01:36)
[2021-06-06] MEDS: methylPREDNISolone NA SUCC 125 MG/2 ML VIAL IVPUSH SCH ×2 (01:40→10:04)
[2021-06-06] MEDS ORDERED: DOXYCYCLINE HYCLATE 100 MG CAPSULE PO SCH (01:41)
[2021-06-06] MEDS ORDERED: hydrALAZINE HCL 20 MG/ML VIAL IVPUSH ONE ×2 (02:38→03:50)
[2021-06-06] MEDS ORDERED: LORazepam 1 MG TABLET PO PRN (03:04)
[2021-06-06] MEDS ORDERED: LORazepam 2 MG/ML SDV VIAL IVPUSH ONE (03:05)
[2021-06-06] MEDS ORDERED: LORazepam 2 MG TABLET PO SCH (05:00)
[2021-06-06] MEDS: HEPARIN NA (PORCINE) 5,000 UNITS/ML 1ML VIAL SQ SCH ×3 (06:28→22:31)
[2021-06-06] MEDS ORDERED: LORazepam 1 MG TABLET PO SCH (06:30)
[2021-06-06] MEDS: FUROSEMIDE 40 MG/4 ML INJECTABLE VIAL IVPUSH SCH ×2 (06:38→14:06)
[2021-06-06] MEDS: FOLIC ACID 1 MG TABLET (FP) PO SCH (10:01)
[2021-06-06] MEDS: NICOTINE 7 MG/24 HOURS TOPICAL PATCH TD SCH (10:27)
[2021-06-06] MEDS: LORazepam 1 MG TABLET PO SCH ×2 (10:29→17:29)
[2021-06-06] MEDS: methylPREDNISolone NA SUCC 40 MG/1 ML VIAL IVPUSH SCH ×2 (11:32→17:11)
[2021-06-06 12:55] LABS: HEMOGLOBIN 19.8 GM/dL (11.7-16.9); MCHC 32.5 g/dl (32.0-35.9); MEAN CELL VOLUME 89.2 fl (80-96); MEAN PLT VOLUME 9.1 fl (7.5-11.1); PLATELET COUNT 210 10^3/uL (134-434); RBC 6.84 M/mm3 (4.00-5.60); RDW 18.4 % (11.9-15.9); WHITE BLOOD COUNT 2.9 K/mm3 (4.0-10.0)
[2021-06-06 13:12] LABS: ALBUMIN 2.3 g/dl (3.4-5.0); BLOOD UREA NITROGEN 30.7 mg/dL (7-18)
[2021-06-06 13:15] LABS: CREATININE 1.3 mg/dL (0.55-1.3)
[2021-06-06 13:17] LABS: BILIRUBIN,TOTAL 2.8 mg/dL (0.2-1); TOT PROT 5.8 g/dl (6.4-8.2)
[2021-06-06 13:23] LABS: CALCIUM 8.7 mg/dL (8.5-10.1)
[2021-06-06 15:46] LABS: ANISOCYTOSIS 1+; MACROCYTOSIS 1+; TEAR DROP CELLS 2+
[2021-06-06] MEDS ORDERED: HYDROCHLOROTHIAZIDE 12.5 MG CAPSULE (FP) NGT ONE (22:46)
[2021-06-07] MEDS: LORazepam 1 MG TABLET PO SCH (01:33)
[2021-06-07] MEDS: methylPREDNISolone NA SUCC 40 MG/1 ML VIAL IVPUSH SCH ×3 (01:37→18:10)
[2021-06-07] MEDS ORDERED: LORazepam 1 MG TABLET PO SCH (05:00)
[2021-06-07] MEDS: HEPARIN NA (PORCINE) 5,000 UNITS/ML 1ML VIAL SQ SCH ×3 (06:22→21:05)
[2021-06-07] MEDS: FUROSEMIDE 40 MG/4 ML INJECTABLE VIAL IVPUSH SCH ×2 (06:23→14:02)
[2021-06-07 07:41] LABS: CHLORIDE 92 mmol/L (98-107); SODIUM 143 mmol/L (136-145)
[2021-06-07 07:44] LABS: ALBUMIN 2.4 g/dl (3.4-5.0); BLOOD UREA NITROGEN 36.8 mg/dL (7-18); CALCIUM 8.6 mg/dL (8.5-10.1); GLUCOSE,RANDOM 111 mg/dL (74-106); MAGNESIUM 1.8 mg/dL (1.8-2.4)
[2021-06-07 07:47] LABS: CHOLESTEROL 95 mg/dL (50-200); CREATININE 1.4 mg/dL (0.55-1.3); PHOSPHOROUS 4.3 mg/dL (2.5-4.9); SGOT/AST 34 U/L (15-37); SGPT/ALT 20 U/L (13-61); TRIGLYCERIDES 71 mg/dL (0-150)
[2021-06-07 07:48] LABS: LDL CHOLESTEROL (ONLY SJRH) 50 mg/dL (5-100); TOT PROT 5.8 g/dl (6.4-8.2)
[2021-06-07 07:49] LABS: ALK PHOS 206 U/L (45-117); BILIRUBIN,TOTAL 2.4 mg/dL (0.2-1)
[2021-06-07 07:50] LABS: HDL CHOLESTEROL 37 mg/dL (40-60)
[2021-06-07 08:08] LABS: BASO % 0.2 % (0-2.0); HEMATOCRIT 59.8 % (35.4-49); HEMOGLOBIN 19.2 GM/dL (11.7-16.9); LYMPH % 8.5 % (8-40); MCH 28.7 pg (25.7-33.7); MCHC 32.1 g/dl (32.0-35.9); MEAN CELL VOLUME 89.4 fl (80-96); MONO % 4.9 % (3.8-10.2); NEUT % 86.4 % (42.8-82.8); PLATELET COUNT 209 10^3/uL (134-434); RBC 6.68 M/mm3 (4.00-5.60); RDW 17.8 % (11.9-15.9); WHITE BLOOD COUNT 2.5 K/mm3 (4.0-10.0)
[2021-06-07 08:58] LABS: ANION GAP 6 MMOL/L (8-16); CO2 > 45 mmol/L (21-32)
[2021-06-07] MEDS ORDERED: AZITHROMYCIN 250 MG TABLET PO SCH (10:00)
[2021-06-07] MEDS: NICOTINE 7 MG/24 HOURS TOPICAL PATCH TD SCH (11:03)
[2021-06-07] MEDS: FOLIC ACID 1 MG TABLET (FP) PO SCH (11:04)
[2021-06-07] MEDS: DOXYCYCLINE HYCLATE 100 MG CAPSULE PO SCH (11:04)
[2021-06-07 11:38] LABS: ARTERIAL BLD GAS O2 SATURATION 96.5 % (95-98); ARTERIAL BLOOD GAS BASE EXCESS 15.2 mmol/L (-2-2); ARTERIAL BLOOD GAS PO2 86.2 mmHg (80-100); ARTERIAL BLOOD GAS pH 7.435 (7.350-7.450)
[2021-06-07 11:39] LABS: ALLENS TEST POSITIVE
[2021-06-07] MEDS: amLODIPine BESYLATE 10 MG TABLET (FP) PO SCH (16:06)
[2021-06-07] MEDS: LORazepam 2 MG/ML SDV VIAL IVPUSH PRN (18:55)
[2021-06-07] MEDS ORDERED: LORazepam 2 MG/ML SDV VIAL IVPUSH ONE (22:02)
[2021-06-07 22:32] LABS: ARTERIAL BLD GAS O2 SATURATION 95.3 % (95-98); ARTERIAL BLOOD GAS BASE EXCESS 16.2 mmol/L (-2-2); ARTERIAL BLOOD GAS PO2 75.3 mmHg (80-100)
[2021-06-07 22:34] LABS: ALLENS TEST POSITIVE
[2021-06-07 22:35] LABS: PT'S TEMP 98.3
[2021-06-08] MEDS ORDERED: LORazepam 0.5 MG TABLET PO PRN
[2021-06-08] MEDS: methylPREDNISolone NA SUCC 40 MG/1 ML VIAL IVPUSH SCH ×5 (01:13→22:19)
[2021-06-08] MEDS: LORazepam 2 MG/ML SDV VIAL IVPUSH PRN (03:41)
[2021-06-08] MEDS ORDERED: LORazepam 0.5 MG TABLET PO SCH (05:00)
[2021-06-08 06:40] LABS: ALLENS TEST POSITIVE; ARTERIAL BLD GAS O2 SATURATION 97.1 % (95-98); ARTERIAL BLOOD GAS BASE EXCESS 14.1 mmol/L (-2-2); ARTERIAL BLOOD GAS PO2 94.7 mmHg (80-100); ARTERIAL BLOOD GAS pH 7.421 (7.350-7.450)
[2021-06-08 06:41] LABS: PT'S TEMP 98.4
[2021-06-08] MEDS: FUROSEMIDE 40 MG/4 ML INJECTABLE VIAL IVPUSH SCH ×2 (06:41→13:34)
[2021-06-08 06:42] LABS: VENT MODE ST; VENT RATE 22
[2021-06-08] MEDS: HEPARIN NA (PORCINE) 5,000 UNITS/ML 1ML VIAL SQ SCH ×3 (06:43→22:19)
[2021-06-08 07:10] LABS: MEAN PLT VOLUME 8.8 fl (7.5-11.1)
[2021-06-08 07:17] LABS: HEMOGLOBIN 18.9 GM/dL (11.7-16.9); MCH 29.1 pg (25.7-33.7); MCHC 32.6 g/dl (32.0-35.9); MEAN CELL VOLUME 89.3 fl (80-96); PLATELET COUNT 224 10^3/uL (134-434); RDW 17.6 % (11.9-15.9); WHITE BLOOD COUNT 5.9 K/mm3 (4.0-10.0)
[2021-06-08 07:36] LABS: BLOOD UREA NITROGEN 35.8 mg/dL (7-18); CALCIUM 9.1 mg/dL (8.5-10.1)
[2021-06-08 07:39] LABS: CREATININE 1.3 mg/dL (0.55-1.3)
[2021-06-08 07:41] LABS: BILIRUBIN,TOTAL 3.3 mg/dL (0.2-1); TOT PROT 7.6 g/dl (6.4-8.2)
[2021-06-08 08:00] LABS: ALBUMIN 3.4 g/dl (3.4-5.0)
[2021-06-08 09:08] LABS: ANISOCYTOSIS 0; HELMET CELLS 0; HOWELL-JOLLY BODIES 0; MACROCYTOSIS 0; OVALOCYTE 0; ROULEAU 0; SICKELED CELLS 0; TARGET CELLS 0; TEAR DROP CELLS 0; TOXIC GRANULATION 0
[2021-06-08] MEDS: FOLIC ACID 1 MG TABLET (FP) PO SCH (09:34)
[2021-06-08] MEDS: NICOTINE 7 MG/24 HOURS TOPICAL PATCH TD SCH (09:34)
[2021-06-08] MEDS: amLODIPine BESYLATE 10 MG TABLET (FP) PO SCH (09:34)
[2021-06-08] MEDS: DOXYCYCLINE HYCLATE 100 MG CAPSULE PO SCH (09:35)
[2021-06-08] MEDS: PANTOPRAZOLE SODIUM 40 MG VIAL IVPUSH SCH (10:33)
[2021-06-08] MEDS: IPRATROPIUM BR 0.02% 0.5 MG/2.5 ML VIAL.NEB. NEB SCH ×3 (12:30→20:30)
[2021-06-08] MEDS: LEVALBUTEROL HCL 0.31 MG/3 ML VIAL.NEB IH SCH ×3 (12:40→20:30)
[2021-06-08 14:48] LABS: ARTERIAL BLOOD GAS PO2 88.5 mmHg (80-100)
[2021-06-08 14:49] LABS: ARTERIAL BLD GAS O2 SATURATION 95.2 % (95-98)
[2021-06-08 17:34] LABS: ARTERIAL BLOOD GAS BASE EXCESS 12.7 mmol/L (-2-2); ARTERIAL BLOOD GAS PO2 157.1 mmHg (80-100); ARTERIAL BLOOD GAS pH 7.413 (7.350-7.450)
[2021-06-08 17:45] LABS: ALLENS TEST POSITIVE
[2021-06-08 17:47] LABS: VENT MODE ST
[2021-06-08 17:48] LABS: VENT RATE R-22
[2021-06-08] MEDS ORDERED: LORazepam 2 MG/ML SDV VIAL IVPUSH ONE (23:18)
[2021-06-09 01:34] LABS: ARTERIAL BLD GAS O2 SATURATION 93.4 % (95-98); ARTERIAL BLOOD GAS BASE EXCESS 15.6 mmol/L (-2-2); ARTERIAL BLOOD GAS PO2 67.6 mmHg (80-100); ARTERIAL BLOOD GAS pH 7.438 (7.350-7.450)
[2021-06-09 01:37] LABS: ALLENS TEST POSITIVE
[2021-06-09] MEDS: methylPREDNISolone NA SUCC 40 MG/1 ML VIAL IVPUSH SCH ×4 (03:04→21:48)
[2021-06-09] MEDS ORDERED: LORazepam 0.5 MG TABLET PO ONE (05:00)
[2021-06-09] MEDS: HEPARIN NA (PORCINE) 5,000 UNITS/ML 1ML VIAL SQ SCH ×3 (06:22→21:46)
[2021-06-09] MEDS: FUROSEMIDE 40 MG/4 ML INJECTABLE VIAL IVPUSH SCH ×2 (06:23→13:38)
[2021-06-09 07:39] LABS: HEMATOCRIT 66.3 % (35.4-49); MCH 28.7 pg (25.7-33.7); MCHC 32.1 g/dl (32.0-35.9); MEAN CELL VOLUME 89.5 fl (80-96); MEAN PLT VOLUME 9.2 fl (7.5-11.1); PLATELET COUNT 219 10^3/uL (134-434); RDW 18.1 % (11.9-15.9); WHITE BLOOD COUNT 4.6 K/mm3 (4.0-10.0)
[2021-06-09] MEDS: LEVALBUTEROL HCL 0.31 MG/3 ML VIAL.NEB IH SCH ×4 (08:00→20:35)
[2021-06-09] MEDS: IPRATROPIUM BR 0.02% 0.5 MG/2.5 ML VIAL.NEB. NEB SCH ×4 (08:00→20:35)
[2021-06-09 08:07] LABS: RBC 7.41 M/mm3 (4.00-5.60)
[2021-06-09 08:29] LABS: HEMOGLOBIN 21.3 GM/dL (11.7-16.9)
[2021-06-09 08:34] LABS: ALBUMIN 3.3 g/dl (3.4-5.0); BILIRUBIN,TOTAL 3.5 mg/dL (0.2-1); BLOOD UREA NITROGEN 39.2 mg/dL (7-18); CALCIUM 9.3 mg/dL (8.5-10.1); CREATININE 1.3 mg/dL (0.55-1.3); MAGNESIUM 2.1 mg/dL (1.8-2.4); PHOSPHOROUS 3.5 mg/dL (2.5-4.9); TOT PROT 7.4 g/dl (6.4-8.2)
[2021-06-09] MEDS: LORazepam 2 MG/ML SDV VIAL IVPUSH ONE ×2 (08:46→08:54)
[2021-06-09] MEDS ORDERED: methaDONE HCL 10 MG TABLET PO SCH (09:15)
[2021-06-09 09:47] LABS: ANISOCYTOSIS 0; HELMET CELLS 0; HOWELL-JOLLY BODIES 0; MACROCYTOSIS 0; OVALOCYTE 0; ROULEAU 0; SICKELED CELLS 0; TARGET CELLS 0; TEAR DROP CELLS 0; TOXIC GRANULATION 0
[2021-06-09] MEDS: amLODIPine BESYLATE 10 MG TABLET (FP) PO SCH (09:50)
[2021-06-09] MEDS: FOLIC ACID 1 MG TABLET (FP) PO SCH (09:50)
[2021-06-09] MEDS: PANTOPRAZOLE SODIUM 40 MG VIAL IVPUSH SCH (09:50)
[2021-06-09] MEDS: NICOTINE 7 MG/24 HOURS TOPICAL PATCH TD SCH (09:51)
[2021-06-09] MEDS ORDERED: ASPIRIN 81 MG CHEWABLE TABLETS PO SCH (10:00)
[2021-06-09 10:32] LABS: ARTERIAL BLD GAS O2 SATURATION 93.5 % (95-98); ARTERIAL BLOOD GAS PO2 65.9 mmHg (80-100); ARTERIAL BLOOD GAS pH 7.452 (7.350-7.450)
[2021-06-09 10:34] LABS: ALLENS TEST POSITIVE
[2021-06-09 14:13] LABS: BILIRUBIN,DIRECT 1.5 mg/dL (0.0-0.2)
[2021-06-09] MEDS: POLYETHYLENE GLYCOL (HEALTHYLAX) 3350 17 GM PACKET PO SCH (21:57)
[2021-06-09] MEDS ORDERED: POLYETHYLENE GLYCOL (HEALTHYLAX) 3350 17 GM PACKET PO SCH (22:00)
[2021-06-10] MEDS: methylPREDNISolone NA SUCC 40 MG/1 ML VIAL IVPUSH SCH ×4 (02:40→23:13)
[2021-06-10] MEDS: HEPARIN NA (PORCINE) 5,000 UNITS/ML 1ML VIAL SQ SCH ×3 (05:40→23:16)
[2021-06-10] MEDS: methaDONE HCL 10 MG TABLET PO SCH (05:40)
[2021-06-10] MEDS: FUROSEMIDE 40 MG/4 ML INJECTABLE VIAL IVPUSH SCH ×2 (05:42→14:08)
[2021-06-10 06:11] LABS: ARTERIAL BLOOD GAS BASE EXCESS 9.9 mmol/L (-2-2); ARTERIAL BLOOD GAS PO2 82.6 mmHg (80-100); ARTERIAL BLOOD GAS pH 7.414 (7.350-7.450)
[2021-06-10 06:12] LABS: ALLENS TEST POSITIVE
[2021-06-10] MEDS: IPRATROPIUM BR 0.02% 0.5 MG/2.5 ML VIAL.NEB. NEB SCH ×4 (07:35→20:27)
[2021-06-10] MEDS: LEVALBUTEROL HCL 0.31 MG/3 ML VIAL.NEB IH SCH ×4 (07:35→20:27)
[2021-06-10 08:30] LABS: MCH 28.4 pg (25.7-33.7); MCHC 31.3 g/dl (32.0-35.9); MEAN CELL VOLUME 90.6 fl (80-96); MEAN PLT VOLUME 9.1 fl (7.5-11.1); PLATELET COUNT 184 10^3/uL (134-434); RDW 18.1 % (11.9-15.9); WHITE BLOOD COUNT 3.7 K/mm3 (4.0-10.0)
[2021-06-10 08:32] LABS: RBC 7.29 M/mm3 (4.00-5.60)
[2021-06-10 09:08] LABS: HEMOGLOBIN 20.7 GM/dL (11.7-16.9)
[2021-06-10 09:41] LABS: ALBUMIN 3.1 g/dl (3.4-5.0); BILIRUBIN,TOTAL 2.5 mg/dL (0.2-1); BLOOD UREA NITROGEN 40.4 mg/dL (7-18); CALCIUM 8.8 mg/dL (8.5-10.1); CREATININE 1.3 mg/dL (0.55-1.3); TOT PROT 7.1 g/dl (6.4-8.2)
[2021-06-10] MEDS: NICOTINE 7 MG/24 HOURS TOPICAL PATCH TD SCH (09:44)
[2021-06-10] MEDS: FOLIC ACID 1 MG TABLET (FP) PO SCH (09:44)
[2021-06-10] MEDS: ASPIRIN 81 MG CHEWABLE TABLETS PO SCH (09:44)
[2021-06-10] MEDS: amLODIPine BESYLATE 10 MG TABLET (FP) PO SCH (09:44)
[2021-06-10] MEDS: PANTOPRAZOLE SODIUM 40 MG VIAL IVPUSH SCH (09:44)
[2021-06-10 10:08] LABS: PLATELET ESTIMATE ADEQUATE
[2021-06-10 10:53] LABS: BILIRUBIN,DIRECT 1.3 mg/dL (0.0-0.2)
[2021-06-10] MEDS: POLYETHYLENE GLYCOL (HEALTHYLAX) 3350 17 GM PACKET PO SCH ×2 (12:07→23:12)
[2021-06-10 13:00] VITALS: BMI 17.9
[2021-06-10] MEDS ORDERED: LORazepam 2 MG/ML SDV VIAL IVPUSH PRN (14:23)
[2021-06-11] MEDS: methylPREDNISolone NA SUCC 40 MG/1 ML VIAL IVPUSH SCH ×2 (02:48→09:22)
[2021-06-11] MEDS: methaDONE HCL 10 MG TABLET PO SCH (05:59)
[2021-06-11] MEDS: HEPARIN NA (PORCINE) 5,000 UNITS/ML 1ML VIAL SQ SCH ×2 (06:00→14:43)
[2021-06-11] MEDS: LEVALBUTEROL HCL 0.31 MG/3 ML VIAL.NEB IH SCH ×2 (07:27→11:43)
[2021-06-11 08:17] LABS: HEMATOCRIT 66.1 % (35.4-49); MCHC 31.2 g/dl (32.0-35.9); MEAN CELL VOLUME 89.7 fl (80-96); MEAN PLT VOLUME 9.2 fl (7.5-11.1); PLATELET COUNT 170 10^3/uL (134-434); RDW 17.8 % (11.9-15.9); WHITE BLOOD COUNT 4.7 K/mm3 (4.0-10.0)
[2021-06-11 08:21] LABS: RBC 7.36 M/mm3 (4.00-5.60)
[2021-06-11 08:32] LABS: CALCIUM 8.9 mg/dL (8.5-10.1); HEMOGLOBIN 20.6 GM/dL (11.7-16.9)
[2021-06-11 08:33] LABS: BLOOD UREA NITROGEN 37.2 mg/dL (7-18)
[2021-06-11 08:36] LABS: CREATININE 1.1 mg/dL (0.55-1.3)
[2021-06-11 08:37] LABS: BILIRUBIN,TOTAL 2.6 mg/dL (0.2-1); TOT PROT 7.3 g/dl (6.4-8.2)
[2021-06-11 08:54] LABS: ANISOCYTOSIS 0; HELMET CELLS 0; HOWELL-JOLLY BODIES 0; MACROCYTOSIS 0; OVALOCYTE 0; ROULEAU 0; SICKELED CELLS 0; TARGET CELLS 0; TEAR DROP CELLS 0; TOXIC GRANULATION 0
[2021-06-11] MEDS: PANTOPRAZOLE SODIUM 40 MG VIAL IVPUSH SCH (09:22)
[2021-06-11] MEDS: NICOTINE 7 MG/24 HOURS TOPICAL PATCH TD SCH (09:22)
[2021-06-11] MEDS: POLYETHYLENE GLYCOL (HEALTHYLAX) 3350 17 GM PACKET PO SCH (09:22)
[2021-06-11] MEDS: ASPIRIN 81 MG CHEWABLE TABLETS PO SCH (09:23)
[2021-06-11] MEDS: amLODIPine BESYLATE 10 MG TABLET (FP) PO SCH (09:23)
[2021-06-11] MEDS: FOLIC ACID 1 MG TABLET (FP) PO SCH (09:23)
[2021-06-11] MEDS ORDERED: FUROSEMIDE 40 MG/4 ML INJECTABLE VIAL IVPUSH SCH (10:00)
[2021-06-11 12:42] LABS: INR 1.22 (0.83-1.09); PROTHROMBIN TIME (PATIENT) 14.1 SEC (9.7-13.0)
[2021-06-11 12:51] LABS: IRON SERUM 273 ug/dL (50-175); TOTAL IRON BINDING CAPACITY 390 ug/dL (250-450)
[2021-06-11 12:53] LABS: LDH 448 U/L (87-246)
[2021-06-11 14:13] VITALS: BP 152/89; PULSE 91; TEMP 99
[2021-06-11] MEDS ORDERED: methylPREDNISolone NA SUCC 40 MG/1 ML VIAL IVPUSH SCH (22:00)
[2021-06-12] MEDS ORDERED: MULTIVITAMINS (DAILY MVI) TABLET (FP) PO SCH (10:00)
[2021-06-12] MEDS ORDERED: FUROSEMIDE 40 MG TABLET (FP) PO SCH (10:00)
== END 2021-06-11 15:29 | disposition left against medical advice (07) | DRG 194 ==
LOC: JER 18:45 → JERBED 23:41 → J4W 06-06 04:29 → J7W 06-09 18:10
PROVIDERS: ADMIT Internal Medicine
DX: I11.0 Hypertensive heart disease with heart failure (principal); I50.33 Acute on chronic diastolic (congestive) heart failure; J96.21 Acute and chronic respiratory failure with hypoxia; J96.22 Acute and chronic respiratory failure with hypercapnia; F11.20 Opioid dependence, uncomplicated; F10.10 Alcohol abuse, uncomplicated; D75.1 Secondary polycythemia; N17.9 Acute kidney failure, unspecified; D68.9 Coagulation defect, unspecified; F41.8 Other specified anxiety disorders; J44.1 Chronic obstructive pulmonary disease with (acute) exacerbation; E78.5 Hyperlipidemia, unspecified; M54.50 Low back pain, unspecified; R60.0 Localized edema; R79.89 Other specified abnormal findings of blood chemistry; F19.10 Other psychoactive substance abuse, uncomplicated; I07.1 Rheumatic tricuspid insufficiency; R94.31 Abnormal electrocardiogram [ECG] [EKG]; K76.0 Fatty (change of) liver, not elsewhere classified; R64 Cachexia; Z68.1 Body mass index [BMI] 19.9 or less, adult
CPT/HCPCS: 36415; 36600; 71045-TC-FY; 76705-TC; 76775-TC; 76870-TC; 80048; 80053; 80061; 82248; 82436; 82550; 82570; 82668; 82728; 82803; 82962; 82977; 83540; 83550; 83615; 83735; 83880; 84100; 84133; 84156; 84300; 84443; 84484; 85025; 85610; 85730; 86704; 86803; 87340; 87517; 87522; 93005; 93010; 93306-TC; 94640; 94660; 97116-GP; 97162-GP; 99291; C9803-CS; J1644; U0003; U0005

== ENCOUNTER 2021-08-13 11:56 | Inpatient (IN) | payer OTHER ==
[2021-08-13 12:11] VITALS: BMI 23.6
[2021-08-13 14:25] LABS: BASO % 0.3 % (0-2.0); EOS % 0.8 % (0-4.5); HEMATOCRIT 50.4 % (35.4-49); HEMOGLOBIN 15.7 GM/dL (11.7-16.9); LYMPH % 17.9 % (8-40); MCH 28.6 pg (25.7-33.7); MCHC 31.2 g/dl (32.0-35.9); MEAN CELL VOLUME 91.6 fl (80-96); MEAN PLT VOLUME 8.8 fl (7.5-11.1); MONO % 12.1 % (3.8-10.2); NEUT % 68.9 % (42.8-82.8); PLATELET COUNT 202 10^3/uL (134-434); RBC 5.51 M/mm3 (4.00-5.60); RDW 21.8 % (11.9-15.9); WHITE BLOOD COUNT 3.6 K/mm3 (4.0-10.0)
[2021-08-13 14:34] LABS: INR 1.34 (0.83-1.09); PROTHROMBIN TIME (PATIENT) 15.4 SEC (9.7-13.0)
[2021-08-13 14:36] LABS: ACTIVATED PTT 36.8 SECONDS (25.2-36.5)
[2021-08-13 14:37] LABS: VENOUS BASE EXCESS 6.1 mmol/L (-2-2); VENOUS PH 7.211 (7.310-7.410)
[2021-08-13 14:40] LABS: VENOUS PCO2 99.1 mmHg (38-52)
[2021-08-13 15:15] LABS: ANISOCYTOSIS 1+; MACROCYTOSIS 1+; OVALOCYTE 1+
[2021-08-13 15:21] LABS: ALBUMIN 3.2 g/dl (3.4-5.0); BLOOD UREA NITROGEN 16.6 mg/dL (7-18); CALCIUM 8.8 mg/dL (8.5-10.1); MAGNESIUM 2.2 mg/dL (1.8-2.4)
[2021-08-13 15:24] LABS: CREATININE 1.1 mg/dL (0.55-1.3)
[2021-08-13 15:26] LABS: BILIRUBIN,TOTAL 1.7 mg/dL (0.2-1); TOT PROT 6.3 g/dl (6.4-8.2)
[2021-08-13 15:29] LABS: N-TERMINAL BNP 2654.8 pg/ml (5-125)
[2021-08-13] MEDS ORDERED: FUROSEMIDE 40 MG/4 ML INJECTABLE VIAL IVPUSH ONE (16:13)
[2021-08-13] MEDS ORDERED: CLINDAMYCIN 600MG PREMIX IVPB 600 MG/50 ML BAG IVPB ONE ×2 (16:14→16:35)
[2021-08-13] MEDS ORDERED: FUROSEMIDE 40 MG/4 ML INJECTABLE VIAL ONE (16:36)
[2021-08-13] MEDS ORDERED: ALBUTEROL SO4 2.5/IPRATROPIUM 0.5 INH SOL 3 ML VIAL.NEB. NEB ONE ×2 (16:45→22:27)
[2021-08-13] MEDS: ALBUTEROL SO4 2.5/IPRATROPIUM 0.5 INH SOL 3 ML VIAL.NEB. NEB SCH ×4 (16:45→22:41)
[2021-08-13] MEDS ORDERED: ALBUTEROL SO4 0.5 % INH SOLN 2.5 MG/0.5 ML VIAL.NEB. NEB PRN (18:22)
[2021-08-13] MEDS ORDERED: risperiDONE 0.5 MG TABLET ONE (22:28)
[2021-08-13] MEDS ORDERED: methylPREDNISolone NA SUCC 40 MG/1 ML VIAL ONE (22:28)
[2021-08-13] MEDS: risperiDONE 0.5 MG TABLET PO SCH (22:41)
[2021-08-13] MEDS: methylPREDNISolone NA SUCC 40 MG/1 ML VIAL IVPUSH SCH (22:41)
[2021-08-14 07:53] LABS: HEMATOCRIT 54.2 % (35.4-49); HEMOGLOBIN 17.3 GM/dL (11.7-16.9); MCH 28.8 pg (25.7-33.7); MEAN CELL VOLUME 90.1 fl (80-96); MEAN PLT VOLUME 8.2 fl (7.5-11.1); PLATELET COUNT 188 10^3/uL (134-434); RBC 6.01 M/mm3 (4.00-5.60); RDW 20.8 % (11.9-15.9); WHITE BLOOD COUNT 2.7 K/mm3 (4.0-10.0)
[2021-08-14 08:25] LABS: ALBUMIN 2.8 g/dl (3.4-5.0); CALCIUM 8.6 mg/dL (8.5-10.1)
[2021-08-14 08:26] LABS: BLOOD UREA NITROGEN 16.5 mg/dL (7-18); MAGNESIUM 1.7 mg/dL (1.8-2.4)
[2021-08-14 08:28] LABS: CREATININE 1.1 mg/dL (0.55-1.3); PHOSPHOROUS 4.5 mg/dL (2.5-4.9)
[2021-08-14 08:30] LABS: BILIRUBIN,TOTAL 1.9 mg/dL (0.2-1); TOT PROT 5.9 g/dl (6.4-8.2)
[2021-08-14] MEDS: methylPREDNISolone NA SUCC 40 MG/1 ML VIAL IVPUSH SCH (08:30)
[2021-08-14] MEDS ORDERED: ALBUTEROL SO4 2.5/IPRATROPIUM 0.5 INH SOL 3 ML VIAL.NEB. NEB ONE (08:40)
[2021-08-14] MEDS ORDERED: methylPREDNISolone NA SUCC 40 MG/1 ML VIAL ONE (08:41)
[2021-08-14] MEDS ORDERED: HYDROCHLOROTHIAZIDE 25 MG TABLET (FP) ONE (08:41)
[2021-08-14] MEDS ORDERED: CITALOPRAM HYDROBROMIDE 10 MG TABLET ONE (08:41)
[2021-08-14] MEDS ORDERED: FUROSEMIDE 40 MG/4 ML INJECTABLE VIAL ONE (08:42)
[2021-08-14] MEDS: ALBUTEROL SO4 2.5/IPRATROPIUM 0.5 INH SOL 3 ML VIAL.NEB. NEB SCH ×3 (08:58→20:03)
[2021-08-14] MEDS: CITALOPRAM HYDROBROMIDE 10 MG TABLET PO SCH (09:16)
[2021-08-14] MEDS: LISINOPRIL 10 MG TABLET PO SCH (09:16)
[2021-08-14] MEDS: MULTIVITAMINS (DAILY MVI) TABLET (FP) PO SCH (09:16)
[2021-08-14] MEDS: HYDROCHLOROTHIAZIDE 12.5 MG CAPSULE (FP) PO SCH (09:16)
[2021-08-14] MEDS: FUROSEMIDE 40 MG/4 ML INJECTABLE VIAL IVPUSH SCH (09:16)
[2021-08-14] MEDS: ENOXAPARIN NA (PORCINE) 40 MG/0.4 ML DISP.SYRIN SQ SCH (09:16)
[2021-08-14] MEDS ORDERED: PATIENT'S OWN MEDICATION (NON-FORMULARY) (Lisinopril/Hydrochlorothiazide [Lisinopril-Hctz PO SCH (10:00)
[2021-08-14 12:41] LABS: ALLENS TEST POSITIVE; ARTERIAL BLD GAS O2 SATURATION 88.7 % (95-98); ARTERIAL BLOOD GAS PO2 62.4 mmHg (80-100); ARTERIAL BLOOD GAS pH 7.322 (7.350-7.450)
[2021-08-14 12:42] LABS: VENT MODE BIPAP; VENT RATE 14
[2021-08-14 17:01] LABS: PH,URINE 5.5 (5.0-8.0); URINE APPEARANCE CLEAR; URINE BILIRUBIN NEGATIVE (NEGATIVE); URINE COLOR YELLOW; URINE GLUCOSE (UA) NEGATIVE (NEGATIVE); URINE KETONE NEGATIVE (NEGATIVE); URINE LEUK ESTERASE NEGATIVE (NEGATIVE); URINE NITRITE NEGATIVE (NEGATIVE); URINE PROTEIN NEGATIVE (NEGATIVE); URINE UROBILINOGEN 0.2 mg/dL (0.2-1.0)
[2021-08-14 17:14] LABS: ARTERIAL BLD GAS O2 SATURATION 61.9 % (95-98)
[2021-08-14 17:15] LABS: ALLENS TEST POSITIVE
[2021-08-14 17:16] LABS: VENT RATE 18
[2021-08-14 17:18] LABS: ARTERIAL BLOOD GAS PO2 37.1 mmHg (80-100)
[2021-08-14 18:18] LABS: COCAINE, UR NEGATIVE (NEGATIVE); METHADONE, UR POSITIVE (NEGATIVE); OPIATES, URI POSITIVE (NEGATIVE); PHENCYCLIDINE,URINE NEGATIVE (NEGATIVE); URINE AMPHETAMINES NEGATIVE (NEGATIVE); URINE BARBITURATES NEGATIVE (NEGATIVE); URINE BENZODIAZEPINES NEGATIVE (NEGATIVE)
[2021-08-14] MEDS: risperiDONE 0.5 MG TABLET PO SCH (22:07)
[2021-08-14] MEDS: NICOTINE 14 MG/24 HOURS TOPICAL PATCH TD SCH (22:08)
[2021-08-14] MEDS: BUDESONIDE/FORMETEROL FUMARATE 160/4.5 mcg INHALER IH SCH (22:14)
[2021-08-15] MEDS: methylPREDNISolone NA SUCC 40 MG/1 ML VIAL IVPUSH SCH ×4 (02:19→17:44)
[2021-08-15] MEDS: ALBUTEROL SO4 2.5/IPRATROPIUM 0.5 INH SOL 3 ML VIAL.NEB. NEB SCH ×5 (07:51→20:18)
[2021-08-15] MEDS: BUDESONIDE/FORMETEROL FUMARATE 160/4.5 mcg INHALER IH SCH ×4 (08:25→21:15)
[2021-08-15] MEDS: HYDROCHLOROTHIAZIDE 12.5 MG CAPSULE (FP) PO SCH (09:07)
[2021-08-15] MEDS: FUROSEMIDE 40 MG/4 ML INJECTABLE VIAL IVPUSH SCH (09:07)
[2021-08-15] MEDS: MULTIVITAMINS (DAILY MVI) TABLET (FP) PO SCH (09:07)
[2021-08-15] MEDS: CITALOPRAM HYDROBROMIDE 10 MG TABLET PO SCH (09:07)
[2021-08-15] MEDS: LISINOPRIL 10 MG TABLET PO SCH (09:07)
[2021-08-15] MEDS: ENOXAPARIN NA (PORCINE) 40 MG/0.4 ML DISP.SYRIN SQ SCH (09:08)
[2021-08-15] MEDS: NICOTINE 14 MG/24 HOURS TOPICAL PATCH TD SCH (11:18)
[2021-08-15] MEDS ORDERED: SENNOSIDES 8.6MG TABLET (FP) PO PRN (12:23)
[2021-08-15] MEDS ORDERED: DOCUSATE SODIUM 100 MG CAPSULE (FP) PO PRN (12:24)
[2021-08-15] MEDS: POLYETHYLENE GLYCOL (HEALTHYLAX) 3350 17 GM PACKET PO SCH ×2 (12:36→21:15)
[2021-08-15] MEDS ORDERED: MAGNESIUM 2GM/50ML STERILE WATER IVPB IVPB ONE (12:45)
[2021-08-16] MEDS: methylPREDNISolone NA SUCC 40 MG/1 ML VIAL IVPUSH SCH ×3 (01:41→21:25)
[2021-08-16 06:41] LABS: HEMATOCRIT 52.8 % (35.4-49); HEMOGLOBIN 16.8 GM/dL (11.7-16.9); MCH 28.9 pg (25.7-33.7); MCHC 31.7 g/dl (32.0-35.9); MEAN CELL VOLUME 91.3 fl (80-96); MEAN PLT VOLUME 8.5 fl (7.5-11.1); PLATELET COUNT 192 10^3/uL (134-434); RBC 5.79 M/mm3 (4.00-5.60); RDW 20.6 % (11.9-15.9); WHITE BLOOD COUNT 4.5 K/mm3 (4.0-10.0)
[2021-08-16 06:57] LABS: CALCIUM 9.3 mg/dL (8.5-10.1)
[2021-08-16 06:58] LABS: ALBUMIN 3.2 g/dl (3.4-5.0); BLOOD UREA NITROGEN 21.3 mg/dL (7-18); MAGNESIUM 2.1 mg/dL (1.8-2.4)
[2021-08-16 07:01] LABS: CREATININE 1.1 mg/dL (0.55-1.3)
[2021-08-16 07:03] LABS: BILIRUBIN,TOTAL 1.2 mg/dL (0.2-1); TOT PROT 6.6 g/dl (6.4-8.2)
[2021-08-16] MEDS: ALBUTEROL SO4 2.5/IPRATROPIUM 0.5 INH SOL 3 ML VIAL.NEB. NEB SCH ×4 (07:56→20:24)
[2021-08-16] MEDS: HYDROCHLOROTHIAZIDE 12.5 MG CAPSULE (FP) PO SCH ×2 (08:10→09:57)
[2021-08-16] MEDS: LISINOPRIL 10 MG TABLET PO SCH (08:10)
[2021-08-16] MEDS: CITALOPRAM HYDROBROMIDE 10 MG TABLET PO SCH (09:45)
[2021-08-16] MEDS: ENOXAPARIN NA (PORCINE) 40 MG/0.4 ML DISP.SYRIN SQ SCH (09:45)
[2021-08-16] MEDS: MULTIVITAMINS (DAILY MVI) TABLET (FP) PO SCH (09:45)
[2021-08-16] MEDS: LISINOPRIL 20 MG TABLET PO SCH (09:45)
[2021-08-16] MEDS: POLYETHYLENE GLYCOL (HEALTHYLAX) 3350 17 GM PACKET PO SCH ×2 (09:46→21:24)
[2021-08-16] MEDS: NICOTINE 14 MG/24 HOURS TOPICAL PATCH TD SCH (09:46)
[2021-08-16] MEDS: FUROSEMIDE 40 MG/4 ML INJECTABLE VIAL IVPUSH SCH (09:48)
[2021-08-16] MEDS: BUDESONIDE/FORMETEROL FUMARATE 160/4.5 mcg INHALER IH SCH ×2 (09:51→21:25)
[2021-08-17] MEDS: ALBUTEROL SO4 2.5/IPRATROPIUM 0.5 INH SOL 3 ML VIAL.NEB. NEB SCH ×5 (07:43→19:54)
[2021-08-17] MEDS: ENOXAPARIN NA (PORCINE) 40 MG/0.4 ML DISP.SYRIN SQ SCH (09:12)
[2021-08-17] MEDS: POLYETHYLENE GLYCOL (HEALTHYLAX) 3350 17 GM PACKET PO SCH ×3 (09:12→21:01)
[2021-08-17] MEDS: LISINOPRIL 20 MG TABLET PO SCH (09:13)
[2021-08-17] MEDS: methylPREDNISolone NA SUCC 40 MG/1 ML VIAL IVPUSH SCH ×2 (09:13→21:02)
[2021-08-17] MEDS: MULTIVITAMINS (DAILY MVI) TABLET (FP) PO SCH (09:13)
[2021-08-17] MEDS: FUROSEMIDE 40 MG/4 ML INJECTABLE VIAL IVPUSH SCH (09:13)
[2021-08-17] MEDS: CITALOPRAM HYDROBROMIDE 10 MG TABLET PO SCH (09:13)
[2021-08-17] MEDS: HYDROCHLOROTHIAZIDE 12.5 MG CAPSULE (FP) PO SCH (09:13)
[2021-08-17] MEDS: NICOTINE 14 MG/24 HOURS TOPICAL PATCH TD SCH (09:14)
[2021-08-17] MEDS: BUDESONIDE/FORMETEROL FUMARATE 160/4.5 mcg INHALER IH SCH ×3 (09:21→21:02)
[2021-08-17] MEDS: risperiDONE 0.5 MG TABLET PO SCH (21:02)
[2021-08-18] MEDS: ALBUTEROL SO4 2.5/IPRATROPIUM 0.5 INH SOL 3 ML VIAL.NEB. NEB SCH ×3 (07:55→15:07)
[2021-08-18] MEDS: methylPREDNISolone NA SUCC 40 MG/1 ML VIAL IVPUSH SCH ×2 (09:14→22:04)
[2021-08-18] MEDS: CITALOPRAM HYDROBROMIDE 10 MG TABLET PO SCH (09:14)
[2021-08-18] MEDS: MULTIVITAMINS (DAILY MVI) TABLET (FP) PO SCH (09:14)
[2021-08-18] MEDS: HYDROCHLOROTHIAZIDE 12.5 MG CAPSULE (FP) PO SCH (09:14)
[2021-08-18] MEDS: LISINOPRIL 20 MG TABLET PO SCH (09:14)
[2021-08-18] MEDS: NICOTINE 14 MG/24 HOURS TOPICAL PATCH TD SCH (09:14)
[2021-08-18] MEDS: FUROSEMIDE 40 MG/4 ML INJECTABLE VIAL IVPUSH SCH (09:14)
[2021-08-18] MEDS: POLYETHYLENE GLYCOL (HEALTHYLAX) 3350 17 GM PACKET PO SCH ×3 (09:14→22:04)
[2021-08-18] MEDS: ENOXAPARIN NA (PORCINE) 40 MG/0.4 ML DISP.SYRIN SQ SCH (09:14)
[2021-08-18] MEDS: BUDESONIDE/FORMETEROL FUMARATE 160/4.5 mcg INHALER IH SCH ×2 (09:25→22:04)
[2021-08-18] MEDS ORDERED: LISINOPRIL 20 MG TABLET PO SCH (10:17)
[2021-08-18] MEDS: amLODIPine BESYLATE 5 MG TABLET (FP) PO SCH (10:40)
[2021-08-18] MEDS: risperiDONE 0.5 MG TABLET PO SCH (22:04)
[2021-08-19] MEDS: ENOXAPARIN NA (PORCINE) 40 MG/0.4 ML DISP.SYRIN SQ SCH (09:29)
[2021-08-19] MEDS: NICOTINE 14 MG/24 HOURS TOPICAL PATCH TD SCH (09:30)
[2021-08-19] MEDS: CITALOPRAM HYDROBROMIDE 10 MG TABLET PO SCH (09:30)
[2021-08-19] MEDS: MULTIVITAMINS (DAILY MVI) TABLET (FP) PO SCH (09:31)
[2021-08-19] MEDS: amLODIPine BESYLATE 5 MG TABLET (FP) PO SCH (09:31)
[2021-08-19] MEDS: methylPREDNISolone NA SUCC 40 MG/1 ML VIAL IVPUSH SCH (09:32)
[2021-08-19] MEDS: FUROSEMIDE 40 MG/4 ML INJECTABLE VIAL IVPUSH SCH (09:32)
[2021-08-19] MEDS: POLYETHYLENE GLYCOL (HEALTHYLAX) 3350 17 GM PACKET PO SCH (09:34)
[2021-08-19] MEDS: BUDESONIDE/FORMETEROL FUMARATE 160/4.5 mcg INHALER IH SCH (09:34)
[2021-08-19] MEDS: HYDROCHLOROTHIAZIDE 12.5 MG CAPSULE (FP) PO SCH (09:35)
[2021-08-19 14:50] VITALS: BP 122/55; PULSE 91; TEMP 98.6
== END 2021-08-19 15:59 | disposition home or self-care (01) | DRG 140 ==
LOC: JER 11:56 → JERBED 13:08 → J4S 08-14 15:42
PROVIDERS: ADMIT Internal Medicine
DX: J44.1 Chronic obstructive pulmonary disease with (acute) exacerbation (principal); I27.20 Pulmonary hypertension, unspecified; I50.23 Acute on chronic systolic (congestive) heart failure; J96.21 Acute and chronic respiratory failure with hypoxia; D70.9 Neutropenia, unspecified; E87.2 Acidosis; F11.20 Opioid dependence, uncomplicated; Z99.81 Dependence on supplemental oxygen; J96.22 Acute and chronic respiratory failure with hypercapnia; F17.210 Nicotine dependence, cigarettes, uncomplicated; I11.0 Hypertensive heart disease with heart failure; F10.10 Alcohol abuse, uncomplicated
CPT/HCPCS: 0241U-QW; 36415; 36600; 71046-TC-FY; 74176-TC; 80053; 80307; 81003; 82803; 83036; 83735; 83880; 84100; 84443; 84484; 85025; 85027; 85610; 85730; 87086; 87186; 87899; 93005; 93010; 94640; 94660; 99285-25

== ENCOUNTER 2022-01-29 18:01 | Inpatient (IN) | payer OTHER ==
[2022-01-29] MEDS ORDERED: SODIUM CHLORIDE 2,041 ML IV ONE (19:00)
[2022-01-29] MEDS ORDERED: SODIUM CHLORIDE 500 ML IV STA (19:08)
[2022-01-29] MEDS ORDERED: VANCOMYCIN 1 GM in D5W (PRE-DOCKED) 1,000 MG/250 ML IVPB ONE ×2 (19:08→19:13)
[2022-01-29] MEDS ORDERED: PIPERACILLIN/TAZOB 3.375 GM 3.375 GM in DEXTROSE 5%-WATER - 50 ML IVPB ONE (19:14)
[2022-01-29] MEDS ORDERED: VANCOMYCIN/WATER FOR INJ (PEG) 1,000 MG/200 ML BAG IVPB ONE (19:20)
[2022-01-29] MEDS ORDERED: PIPERACILLIN/TAZOB 3.375 GM 3.375 GM/50 ML BAG IVPB ONE (19:20)
[2022-01-29 19:55] LABS: VENOUS BASE EXCESS 7.8 mmol/L (-2-2); VENOUS O2 SATURATION 39.7 % (70-80); VENOUS PH 7.24 (7.310-7.410)
[2022-01-29 20:01] LABS: VENOUS PCO2 95.4 mmHg (38-52)
[2022-01-29] MEDS ORDERED: CLINDAMYCIN 600MG PREMIX IVPB 600 MG/50 ML BAG IVPB ONE (20:13)
[2022-01-29] MEDS ORDERED: FUROSEMIDE 40 MG/4 ML INJECTABLE VIAL IVPUSH ONE (20:13)
[2022-01-29] MEDS ORDERED: ACETAMINOPHEN 1000 MG/100 ML BAG IVPB ONE (20:18)
[2022-01-29] MEDS ORDERED: ACETAMINOPHEN INJECTION 100 ML IVPB ONE (20:31)
[2022-01-29] MEDS ORDERED: FUROSEMIDE 40 MG/4 ML INJECTABLE VIAL ONE (20:31)
[2022-01-29 20:40] LABS: INR 1.55 (0.83-1.09); PROTHROMBIN TIME (PATIENT) 17.9 SEC (9.7-13.0)
[2022-01-29 20:43] LABS: ACTIVATED PTT 37.3 SECONDS (25.2-36.5)
[2022-01-29 20:57] LABS: ALBUMIN 3.2 g/dl (3.4-5.0); CALCIUM 8.7 mg/dL (8.5-10.1)
[2022-01-29 20:58] LABS: BLOOD UREA NITROGEN 12.5 mg/dL (7-18)
[2022-01-29 21:00] LABS: CREATININE 1.1 mg/dL (0.55-1.3)
[2022-01-29 21:02] LABS: BILIRUBIN,TOTAL 1.8 mg/dL (0.2-1); LACTIC ACID 2.4 mmol/L (0.4-2.0); TOT PROT 6.1 g/dl (6.4-8.2)
[2022-01-29 21:13] LABS: BASO % 0.7 % (0-2.0); EOS % 0.4 % (0-4.5); HEMATOCRIT 48.5 % (35.4-49); LYMPH % 17.3 % (8-40); MCHC 30.9 g/dl (32.0-35.9); MEAN CELL VOLUME 97.1 fl (80-96); MEAN PLT VOLUME 9.3 fl (7.5-11.1); MONO % 12.7 % (3.8-10.2); NEUT % 68.9 % (42.8-82.8); PLATELET COUNT 200 10^3/uL (134-434); RBC 4.99 M/mm3 (4.00-5.60); WHITE BLOOD COUNT 4.4 K/mm3 (4.0-10.0)
[2022-01-29 22:02] LABS: ANISOCYTOSIS 2+; MACROCYTOSIS 1+; PLATELET ESTIMATE NORMAL
[2022-01-30] MEDS ORDERED: LEVALBUTEROL HCL 0.63 MG/3 ML VIAL.NEB. IH PRN (01:53)
[2022-01-30] MEDS ORDERED: LACTATED RINGERS SOLUTION 1,000 ML/1,000 ML INFUS.BAG IV SCH (02:15)
[2022-01-30 02:18] LABS: URINE APPEARANCE CLEAR; URINE BILIRUBIN NEGATIVE (NEGATIVE); URINE COLOR YELLOW; URINE GLUCOSE (UA) NEGATIVE (NEGATIVE); URINE KETONE NEGATIVE (NEGATIVE); URINE LEUK ESTERASE NEGATIVE (NEGATIVE); URINE NITRITE NEGATIVE (NEGATIVE); URINE PROTEIN NEGATIVE (NEGATIVE); URINE UROBILINOGEN 0.2 mg/dL (0.2-1.0)
[2022-01-30 04:24] LABS: ERYTHROCYTE SEDIMENTATION RATE 2 mm/hr (0-20)
[2022-01-30] MEDS ORDERED: PIPERACILLIN/TAZOB 3.375 GM 3.375 GM/50 ML BAG IVPB ONE (04:56)
[2022-01-30] MEDS ORDERED: methylPREDNISolone NA SUCC 40 MG/1 ML VIAL ONE (04:56)
[2022-01-30] MEDS: methylPREDNISolone NA SUCC 40 MG/1 ML VIAL IVPUSH SCH ×3 (05:23→17:41)
[2022-01-30] MEDS: PIPERACILLIN/TAZOB 3.375 GM 3.375 GM in DEXTROSE 5%-WATER - 50 ML IVPB SCH ×4 (05:25→19:55)
[2022-01-30] MEDS ORDERED: VANCOMYCIN 500 MG VIAL (RESTRICTED TO ID ONLY) ONE (05:56)
[2022-01-30 06:45] LABS: ALBUMIN 2.8 g/dl (3.4-5.0); BLOOD UREA NITROGEN 10.5 mg/dL (7-18); CALCIUM 8.1 mg/dL (8.5-10.1); MAGNESIUM 1.8 mg/dL (1.8-2.4)
[2022-01-30 06:48] LABS: CREATININE 0.9 mg/dL (0.55-1.3)
[2022-01-30 06:49] LABS: BILIRUBIN,TOTAL 1.9 mg/dL (0.2-1); TOT PROT 5.5 g/dl (6.4-8.2)
[2022-01-30] MEDS ORDERED: VANCOMYCIN HCL 1,500 MG in DEXTROSE 5%-WATER - 250 ML IVPB SCH (07:00)
[2022-01-30] MEDS ORDERED: VANCOMYCIN 750 MG in DEXTROSE 5%-WATER - 150 ML IVPB SCH (07:00)
[2022-01-30] MEDS ORDERED: VANCOMYCIN/WATER FOR INJ (PEG) 750 MG/150 ML BAG IVPB SCH (07:00)
[2022-01-30 07:33] LABS: BASO % 0.4 % (0-2.0); EOS % 1.7 % (0-4.5); HEMATOCRIT 46.4 % (35.4-49); HEMOGLOBIN 14.6 GM/dL (11.7-16.9); LYMPH % 23.3 % (8-40); MCH 30.3 pg (25.7-33.7); MCHC 31.4 g/dl (32.0-35.9); MEAN CELL VOLUME 96.3 fl (80-96); MEAN PLT VOLUME 9.1 fl (7.5-11.1); MONO % 15.5 % (3.8-10.2); NEUT % 59.1 % (42.8-82.8); PLATELET COUNT 187 10^3/uL (134-434); RBC 4.82 M/mm3 (4.00-5.60); RDW 20.7 % (11.9-15.9); WHITE BLOOD COUNT 3.8 K/mm3 (4.0-10.0)
[2022-01-30 08:40] VITALS: BMI 26.2
[2022-01-30] MEDS: ENOXAPARIN NA (PORCINE) 40 MG/0.4 ML DISP.SYRIN SQ SCH (09:31)
[2022-01-30] MEDS: BUDESONIDE/FORMETEROL FUMARATE 80/4.5 mcg INHALER IH SCH ×3 (10:23→21:29)
[2022-01-30] MEDS: NICOTINE 21 MG/24 HOURS TOPICAL PATCH TD SCH (11:12)
[2022-01-30] MEDS: ALBUTEROL SO4 2.5/IPRATROPIUM 0.5 INH SOL 3 ML VIAL.NEB. NEB SCH ×3 (11:45→20:05)
[2022-01-30] MEDS: AMPICILLIN NA/SULBACTAM NA 3 GM in SODIUM CHLORIDE 100 ML IVPB SCH (17:22)
[2022-01-31] MEDS: methylPREDNISolone NA SUCC 40 MG/1 ML VIAL IVPUSH SCH ×3 (01:29→17:10)
[2022-01-31] MEDS: AMPICILLIN NA/SULBACTAM NA 3 GM in SODIUM CHLORIDE 100 ML IVPB SCH ×3 (01:29→17:10)
[2022-01-31] MEDS: ALBUTEROL SO4 2.5/IPRATROPIUM 0.5 INH SOL 3 ML VIAL.NEB. NEB SCH ×4 (08:00→20:30)
[2022-01-31 08:59] LABS: HEMATOCRIT 47.5 % (35.4-49); HEMOGLOBIN 14.8 GM/dL (11.7-16.9); MCH 30.2 pg (25.7-33.7); MCHC 31.2 g/dl (32.0-35.9); MEAN CELL VOLUME 96.7 fl (80-96); MEAN PLT VOLUME 8.9 fl (7.5-11.1); PLATELET COUNT 214 10^3/uL (134-434); RBC 4.92 M/mm3 (4.00-5.60); RDW 20.9 % (11.9-15.9); WHITE BLOOD COUNT 3.2 K/mm3 (4.0-10.0)
[2022-01-31 09:26] LABS: ALBUMIN 2.9 g/dl (3.4-5.0); BLOOD UREA NITROGEN 11.5 mg/dL (7-18); CALCIUM 8.4 mg/dL (8.5-10.1)
[2022-01-31 09:31] LABS: BILIRUBIN,TOTAL 0.9 mg/dL (0.2-1); TOT PROT 5.9 g/dl (6.4-8.2)
[2022-01-31 09:39] LABS: ANISOCYTOSIS 0; MACROCYTOSIS 0
[2022-01-31] MEDS: NICOTINE 21 MG/24 HOURS TOPICAL PATCH TD SCH (09:57)
[2022-01-31] MEDS: FUROSEMIDE 40 MG TABLET (FP) PO SCH (09:57)
[2022-01-31] MEDS: ENOXAPARIN NA (PORCINE) 40 MG/0.4 ML DISP.SYRIN SQ SCH (09:58)
[2022-01-31] MEDS: BUDESONIDE/FORMETEROL FUMARATE 80/4.5 mcg INHALER IH SCH ×2 (10:14→21:03)
[2022-02-01] MEDS ORDERED: ACETAMINOPHEN 325 MG TABLET (FP) PO PRN (00:44)
[2022-02-01] MEDS: methylPREDNISolone NA SUCC 40 MG/1 ML VIAL IVPUSH SCH ×3 (01:17→17:01)
[2022-02-01] MEDS: AMPICILLIN NA/SULBACTAM NA 3 GM in SODIUM CHLORIDE 100 ML IVPB SCH ×3 (01:18→17:01)
[2022-02-01] MEDS ORDERED: LISINOPRIL 10 MG TABLET PO ONE ×2 (07:00→11:07)
[2022-02-01] MEDS: ALBUTEROL SO4 2.5/IPRATROPIUM 0.5 INH SOL 3 ML VIAL.NEB. NEB SCH ×4 (07:20→20:06)
[2022-02-01 08:52] LABS: HEMATOCRIT 48.3 % (35.4-49); HEMOGLOBIN 15.1 GM/dL (11.7-16.9); MCH 30.2 pg (25.7-33.7); MCHC 31.3 g/dl (32.0-35.9); MEAN CELL VOLUME 96.4 fl (80-96); PLATELET COUNT 213 10^3/uL (134-434); RBC 5.01 M/mm3 (4.00-5.60); RDW 20.8 % (11.9-15.9); WHITE BLOOD COUNT 4.9 K/mm3 (4.0-10.0)
[2022-02-01 09:28] LABS: ALBUMIN 3.1 g/dl (3.4-5.0); BLOOD UREA NITROGEN 11.5 mg/dL (7-18); CALCIUM 8.7 mg/dL (8.5-10.1); MAGNESIUM 1.7 mg/dL (1.8-2.4)
[2022-02-01 09:32] LABS: CREATININE 0.9 mg/dL (0.55-1.3); TOT PROT 6.2 g/dl (6.4-8.2)
[2022-02-01 09:39] LABS: ANISOCYTOSIS 1+; MACROCYTOSIS 1+
[2022-02-01] MEDS: FUROSEMIDE 40 MG TABLET (FP) PO SCH (10:14)
[2022-02-01] MEDS: NICOTINE 21 MG/24 HOURS TOPICAL PATCH TD SCH (10:14)
[2022-02-01] MEDS: ENOXAPARIN NA (PORCINE) 40 MG/0.4 ML DISP.SYRIN SQ SCH (10:14)
[2022-02-01] MEDS: BUDESONIDE/FORMETEROL FUMARATE 80/4.5 mcg INHALER IH SCH ×2 (10:21→21:05)
[2022-02-01] MEDS ORDERED: amLODIPine BESYLATE 5 MG TABLET (FP) PO ONE (11:06)
[2022-02-01] MEDS ORDERED: MAGNESIUM OXIDE 400 MG TABLET (FP) PO ONE (11:09)
[2022-02-01] MEDS ORDERED: AMMONIUM LACTATE 12% LOTION 225 GM BOTTLE TP PRN (11:11)
[2022-02-01] MEDS: POVIDONE-IODINE 10% SOLN 118 ML BOTTLE TP SCH (13:03)
[2022-02-01] MEDS: SILVER SULFADIAZINE 1% TOP CREAM 50 GM JAR TP SCH (16:01)
[2022-02-01] MEDS: AMMONIUM LACTATE 12% LOTION 225 GM BOTTLE TP SCH (21:05)
[2022-02-02] MEDS: methylPREDNISolone NA SUCC 40 MG/1 ML VIAL IVPUSH SCH ×3 (02:42→21:10)
[2022-02-02] MEDS: AMPICILLIN NA/SULBACTAM NA 3 GM in SODIUM CHLORIDE 100 ML IVPB SCH ×3 (02:55→17:43)
[2022-02-02] MEDS: ALBUTEROL SO4 2.5/IPRATROPIUM 0.5 INH SOL 3 ML VIAL.NEB. NEB SCH ×4 (08:52→20:05)
[2022-02-02 09:12] LABS: CALCIUM 9.6 mg/dL (8.5-10.1)
[2022-02-02 09:13] LABS: ALBUMIN 3.4 g/dl (3.4-5.0); BLOOD UREA NITROGEN 20.6 mg/dL (7-18); MAGNESIUM 2.3 mg/dL (1.8-2.4)
[2022-02-02 09:17] LABS: TOT PROT 6.8 g/dl (6.4-8.2)
[2022-02-02 09:18] LABS: BILIRUBIN,TOTAL 1.3 mg/dL (0.2-1)
[2022-02-02 09:23] LABS: HEMATOCRIT 55.2 % (35.4-49); HEMOGLOBIN 17.1 GM/dL (11.7-16.9); MCH 29.5 pg (25.7-33.7); PLATELET COUNT 271 10^3/uL (134-434); RDW 20.1 % (11.9-15.9); WHITE BLOOD COUNT 4.7 K/mm3 (4.0-10.0)
[2022-02-02] MEDS ORDERED: LISINOPRIL 10 MG TABLET PO SCH (10:00)
[2022-02-02] MEDS: POVIDONE-IODINE 10% SOLN 118 ML BOTTLE TP SCH (10:05)
[2022-02-02] MEDS: AMMONIUM LACTATE 12% LOTION 225 GM BOTTLE TP SCH ×2 (10:05→21:11)
[2022-02-02] MEDS: ENOXAPARIN NA (PORCINE) 40 MG/0.4 ML DISP.SYRIN SQ SCH (10:06)
[2022-02-02] MEDS: SILVER SULFADIAZINE 1% TOP CREAM 50 GM JAR TP SCH (10:06)
[2022-02-02] MEDS: FUROSEMIDE 40 MG TABLET (FP) PO SCH (10:07)
[2022-02-02] MEDS: LISINOPRIL 20 MG TABLET PO SCH (10:07)
[2022-02-02] MEDS: amLODIPine BESYLATE 5 MG TABLET (FP) PO SCH (10:07)
[2022-02-02] MEDS: NICOTINE 21 MG/24 HOURS TOPICAL PATCH TD SCH (10:07)
[2022-02-02] MEDS: BUDESONIDE/FORMETEROL FUMARATE 80/4.5 mcg INHALER IH SCH ×2 (10:07→21:11)
[2022-02-02] MEDS ORDERED: methylPREDNISolone NA SUCC 40 MG/1 ML VIAL IVPUSH SCH (11:45)
[2022-02-02 11:55] LABS: ANISOCYTOSIS 0; HELMET CELLS 0; HOWELL-JOLLY BODIES 0; MACROCYTOSIS 0; OVALOCYTE 0; ROULEAU 0; SICKELED CELLS 0; TARGET CELLS 0; TEAR DROP CELLS 0; TOXIC GRANULATION 0
[2022-02-03] MEDS: AMPICILLIN NA/SULBACTAM NA 3 GM in SODIUM CHLORIDE 100 ML IVPB SCH ×3 (01:03→18:06)
[2022-02-03] MEDS: ALBUTEROL SO4 2.5/IPRATROPIUM 0.5 INH SOL 3 ML VIAL.NEB. NEB SCH ×4 (08:55→19:50)
[2022-02-03 09:18] LABS: BASO % 0.1 % (0-2.0); HEMOGLOBIN 17.1 GM/dL (11.7-16.9); LYMPH % 4.7 % (8-40); MCH 29.4 pg (25.7-33.7); MCHC 31.1 g/dl (32.0-35.9); MEAN CELL VOLUME 94.3 fl (80-96); MEAN PLT VOLUME 8.3 fl (7.5-11.1); MONO % 5.1 % (3.8-10.2); NEUT % 90.1 % (42.8-82.8); PLATELET COUNT 233 10^3/uL (134-434); RBC 5.83 M/mm3 (4.00-5.60); RDW 19.9 % (11.9-15.9); WHITE BLOOD COUNT 4.4 K/mm3 (4.0-10.0)
[2022-02-03] MEDS: ENOXAPARIN NA (PORCINE) 40 MG/0.4 ML DISP.SYRIN SQ SCH (10:27)
[2022-02-03] MEDS: BUDESONIDE/FORMETEROL FUMARATE 80/4.5 mcg INHALER IH SCH ×2 (10:27→21:49)
[2022-02-03] MEDS: methylPREDNISolone NA SUCC 40 MG/1 ML VIAL IVPUSH SCH ×2 (10:28→21:49)
[2022-02-03] MEDS: FUROSEMIDE 40 MG TABLET (FP) PO SCH (10:28)
[2022-02-03] MEDS: LISINOPRIL 20 MG TABLET PO SCH (10:28)
[2022-02-03] MEDS: NICOTINE 21 MG/24 HOURS TOPICAL PATCH TD SCH (10:28)
[2022-02-03] MEDS: amLODIPine BESYLATE 5 MG TABLET (FP) PO SCH (10:28)
[2022-02-03] MEDS: AMMONIUM LACTATE 12% LOTION 225 GM BOTTLE TP SCH ×2 (10:29→21:49)
[2022-02-03] MEDS: POVIDONE-IODINE 10% SOLN 118 ML BOTTLE TP SCH (10:29)
[2022-02-03] MEDS: SILVER SULFADIAZINE 1% TOP CREAM 50 GM JAR TP SCH (10:30)
[2022-02-03 11:07] LABS: ALBUMIN 3.3 g/dl (3.4-5.0); BLOOD UREA NITROGEN 24.2 mg/dL (7-18); CALCIUM 9.5 mg/dL (8.5-10.1)
[2022-02-03 11:08] LABS: MAGNESIUM 2.3 mg/dL (1.8-2.4)
[2022-02-03 11:11] LABS: BILIRUBIN,TOTAL 1.6 mg/dL (0.2-1)
[2022-02-03 11:12] LABS: TOT PROT 6.4 g/dl (6.4-8.2)
[2022-02-04] MEDS: AMPICILLIN NA/SULBACTAM NA 3 GM in SODIUM CHLORIDE 100 ML IVPB SCH ×3 (01:51→18:38)
[2022-02-04 01:57] VITALS: RESP 18
[2022-02-04] MEDS: ALBUTEROL SO4 2.5/IPRATROPIUM 0.5 INH SOL 3 ML VIAL.NEB. NEB SCH ×5 (08:05→20:35)
[2022-02-04 08:10] LABS: BLOOD UREA NITROGEN 28.6 mg/dL (7-18)
[2022-02-04 08:11] LABS: ALBUMIN 3.2 g/dl (3.4-5.0); MAGNESIUM 2.4 mg/dL (1.8-2.4)
[2022-02-04 08:13] LABS: CREATININE 1.1 mg/dL (0.55-1.3)
[2022-02-04 08:15] LABS: BILIRUBIN,TOTAL 1.3 mg/dL (0.2-1); TOT PROT 6.3 g/dl (6.4-8.2)
[2022-02-04 09:19] LABS: BASO % 0.4 % (0-2.0); HEMATOCRIT 51.2 % (35.4-49); LYMPH % 4.3 % (8-40); MCH 29.6 pg (25.7-33.7); MCHC 31.3 g/dl (32.0-35.9); MEAN CELL VOLUME 94.6 fl (80-96); MEAN PLT VOLUME 7.5 fl (7.5-11.1); MONO % 5.6 % (3.8-10.2); NEUT % 89.7 % (42.8-82.8); PLATELET COUNT 202 10^3/uL (134-434); RBC 5.41 M/mm3 (4.00-5.60); WHITE BLOOD COUNT 3.8 K/mm3 (4.0-10.0)
[2022-02-04] MEDS: ENOXAPARIN NA (PORCINE) 40 MG/0.4 ML DISP.SYRIN SQ SCH (10:50)
[2022-02-04] MEDS: amLODIPine BESYLATE 5 MG TABLET (FP) PO SCH (10:51)
[2022-02-04] MEDS: LISINOPRIL 20 MG TABLET PO SCH (10:51)
[2022-02-04] MEDS: FUROSEMIDE 40 MG TABLET (FP) PO SCH (10:51)
[2022-02-04] MEDS: SILVER SULFADIAZINE 1% TOP CREAM 50 GM JAR TP SCH (10:51)
[2022-02-04] MEDS: POVIDONE-IODINE 10% SOLN 118 ML BOTTLE TP SCH (10:51)
[2022-02-04] MEDS: methylPREDNISolone NA SUCC 40 MG/1 ML VIAL IVPUSH SCH ×2 (10:51→20:59)
[2022-02-04] MEDS: NICOTINE 21 MG/24 HOURS TOPICAL PATCH TD SCH (10:51)
[2022-02-04] MEDS: AMMONIUM LACTATE 12% LOTION 225 GM BOTTLE TP SCH ×2 (10:51→20:59)
[2022-02-04] MEDS: BUDESONIDE/FORMETEROL FUMARATE 80/4.5 mcg INHALER IH SCH ×2 (10:52→21:00)
[2022-02-05] MEDS: AMPICILLIN NA/SULBACTAM NA 3 GM in SODIUM CHLORIDE 100 ML IVPB SCH ×2 (01:31→10:13)
[2022-02-05] MEDS: ALBUTEROL SO4 2.5/IPRATROPIUM 0.5 INH SOL 3 ML VIAL.NEB. NEB SCH ×3 (08:40→15:43)
[2022-02-05 09:29] LABS: BASO % 0.1 % (0-2.0); HEMATOCRIT 55.4 % (35.4-49); HEMOGLOBIN 17.1 GM/dL (11.7-16.9); LYMPH % 6.5 % (8-40); MCH 29.3 pg (25.7-33.7); MEAN CELL VOLUME 94.7 fl (80-96); MEAN PLT VOLUME 8.5 fl (7.5-11.1); MONO % 4.9 % (3.8-10.2); NEUT % 88.5 % (42.8-82.8); PLATELET COUNT 242 10^3/uL (134-434); RBC 5.85 M/mm3 (4.00-5.60)
[2022-02-05 10:04] LABS: ALBUMIN 3.4 g/dl (3.4-5.0); BLOOD UREA NITROGEN 27.3 mg/dL (7-18); CALCIUM 9.5 mg/dL (8.5-10.1); MAGNESIUM 2.5 mg/dL (1.8-2.4)
[2022-02-05 10:07] LABS: CREATININE 0.9 mg/dL (0.55-1.3)
[2022-02-05 10:08] LABS: TOT PROT 6.7 g/dl (6.4-8.2)
[2022-02-05 10:09] LABS: BILIRUBIN,TOTAL 1.5 mg/dL (0.2-1)
[2022-02-05] MEDS: NICOTINE 21 MG/24 HOURS TOPICAL PATCH TD SCH (10:14)
[2022-02-05] MEDS: amLODIPine BESYLATE 5 MG TABLET (FP) PO SCH (10:14)
[2022-02-05] MEDS: methylPREDNISolone NA SUCC 40 MG/1 ML VIAL IVPUSH SCH (10:14)
[2022-02-05] MEDS: FUROSEMIDE 40 MG TABLET (FP) PO SCH (10:14)
[2022-02-05] MEDS: LISINOPRIL 20 MG TABLET PO SCH (10:14)
[2022-02-05] MEDS: ENOXAPARIN NA (PORCINE) 40 MG/0.4 ML DISP.SYRIN SQ SCH (10:14)
[2022-02-05] MEDS: SILVER SULFADIAZINE 1% TOP CREAM 50 GM JAR TP SCH (10:15)
[2022-02-05] MEDS: AMMONIUM LACTATE 12% LOTION 225 GM BOTTLE TP SCH (10:15)
[2022-02-05] MEDS: POVIDONE-IODINE 10% SOLN 118 ML BOTTLE TP SCH (10:15)
[2022-02-05] MEDS: BUDESONIDE/FORMETEROL FUMARATE 80/4.5 mcg INHALER IH SCH (10:16)
[2022-02-05 14:39] VITALS: BP 144/79; PULSE 83; TEMP 99.2
[2022-02-06] MEDS ORDERED: predniSONE 20 MG TABLET (UD) PO SCH (10:00)
== END 2022-02-05 16:59 | disposition home or self-care (01) | DRG 133 ==
LOC: JER 18:01 → JERBED 23:08 → J4S 01-30 07:36
PROVIDERS: ADMIT Internal Medicine; ATTEND Nurse Practitioner Family
DX: J96.22 Acute and chronic respiratory failure with hypercapnia (principal); J44.9 Chronic obstructive pulmonary disease, unspecified; L03.115 Cellulitis of right lower limb; L03.116 Cellulitis of left lower limb; F11.20 Opioid dependence, uncomplicated; K76.0 Fatty (change of) liver, not elsewhere classified; M54.50 Low back pain, unspecified; J44.1 Chronic obstructive pulmonary disease with (acute) exacerbation; B35.1 Tinea unguium; D75.1 Secondary polycythemia; F17.210 Nicotine dependence, cigarettes, uncomplicated; I50.32 Chronic diastolic (congestive) heart failure; L85.3 Xerosis cutis; Z99.81 Dependence on supplemental oxygen
CPT/HCPCS: 0241U-QW; 36415; 71045-TC-FY; 71046-TC-FY; 73590-TC-LT-FY; 73590-TC-RT-FY; 73701-TC-RT; 80053; 81003; 82550; 82553; 82803; 82962; 83605; 83735; 84100; 84484; 85025; 85610; 85651; 85730; 86140; 87040; 87086; 93005; 93010; 93970-TC; 94640; 94660; 97116-GP; 97162-GP; 99285-25; Q9967

== ENCOUNTER 2022-04-01 11:19 | Inpatient (IN) | payer OTHER ==
[2022-04-01 11:31] VITALS: BMI 26.4
[2022-04-01] MEDS ORDERED: ALBUTEROL SO4 2.5/IPRATROPIUM 0.5 INH SOL 3 ML VIAL.NEB. NEB ONE ×2 (11:35→11:40)
[2022-04-01] MEDS ORDERED: methylPREDNISolone NA SUCC 125 MG/2 ML VIAL IVPB ONE (11:39)
[2022-04-01] MEDS ORDERED: methylPREDNISolone NA SUCC 125 MG/2 ML VIAL ONE (11:44)
[2022-04-01 12:32] LABS: VENOUS BASE EXCESS 4.9 mmol/L (-2-2); VENOUS O2 SATURATION 60.8 % (70-80); VENOUS PH 7.264 (7.310-7.410)
[2022-04-01 12:34] LABS: VENOUS PCO2 81.1 mmHg (38-52)
[2022-04-01] MEDS ORDERED: FUROSEMIDE 40 MG/4 ML INJECTABLE VIAL IVPUSH ONE (12:40)
[2022-04-01] MEDS ORDERED: FUROSEMIDE 40 MG/4 ML INJECTABLE VIAL ONE (12:43)
[2022-04-01 12:47] LABS: BASO % 2.9 % (0-2.0); EOS % 1.2 % (0-4.5); HEMATOCRIT 52.4 % (35.4-49); HEMOGLOBIN 16.3 GM/dL (11.7-16.9); LYMPH % 22.5 % (8-40); MCH 27.9 pg (25.7-33.7); MCHC 31.2 g/dl (32.0-35.9); MEAN CELL VOLUME 89.4 fl (80-96); MEAN PLT VOLUME 8.9 fl (7.5-11.1); MONO % 16.7 % (3.8-10.2); NEUT % 56.7 % (42.8-82.8); PLATELET COUNT 338 10^3/uL (134-434); RBC 5.86 M/mm3 (4.00-5.60); RDW 21.3 % (11.9-15.9); WHITE BLOOD COUNT 3.5 K/mm3 (4.0-10.0)
[2022-04-01 12:54] LABS: INR 1.52 (0.83-1.09); PROTHROMBIN TIME (PATIENT) 17.5 SEC (9.7-13.0)
[2022-04-01 12:57] LABS: ACTIVATED PTT 37.6 SECONDS (25.2-36.5)
[2022-04-01 13:08] LABS: CALCIUM 8.9 mg/dL (8.5-10.1)
[2022-04-01 13:12] LABS: ANISOCYTOSIS 2+; CREATININE 1.4 mg/dL (0.55-1.3); MACROCYTOSIS 1+; OVALOCYTE 1+; TEAR DROP CELLS 1+
[2022-04-01 13:13] LABS: BILIRUBIN,TOTAL 1.1 mg/dL (0.2-1); TOT PROT 6.2 g/dl (6.4-8.2)
[2022-04-01 13:16] LABS: N-TERMINAL BNP 2866.7 pg/ml (5-125)
[2022-04-01 14:33] LABS: VENOUS BASE EXCESS 3.9 mmol/L (-2-2); VENOUS O2 SATURATION 33.7 % (70-80); VENOUS PH 7.214 (7.310-7.410)
[2022-04-01] MEDS ORDERED: ALBUTEROL SO4 0.083% IH SOL 2.5 MG/3 ML VIAL.NEB. NEB ONE (14:47)
[2022-04-01 15:37] LABS: CHLORIDE 101 mmol/L (98-107); SODIUM 136 mmol/L (136-145)
[2022-04-01 15:39] LABS: CALCIUM 8.9 mg/dL (8.5-10.1)
[2022-04-01 15:40] LABS: BLOOD UREA NITROGEN 19.6 mg/dL (7-18); CO2 32 mmol/L (21-32); GLUCOSE,RANDOM 103 mg/dL (74-106)
[2022-04-01 15:43] LABS: CREATININE 1.4 mg/dL (0.55-1.3)
[2022-04-01 15:46] LABS: N-TERMINAL BNP 2440.8 pg/ml (5-125)
[2022-04-01 15:47] LABS: ANION GAP 3 MMOL/L (8-16)
[2022-04-01 18:19] LABS: ALLENS TEST POSITIVE; ARTERIAL BLD GAS O2 SATURATION 90.9 % (95-98); ARTERIAL BLOOD GAS BASE EXCESS 4.9 mmol/L (-2-2); ARTERIAL BLOOD GAS pH 7.309 (7.350-7.450)
[2022-04-01] MEDS: ALBUTEROL SO4 HFA INHALER IH SCH (20:54)
[2022-04-01] MEDS: HEPARIN NA (PORCINE) 5,000 UNITS/ML 1ML VIAL SQ SCH (21:24)
[2022-04-01] MEDS: BUDESONIDE/FORMETEROL FUMARATE 80/4.5 mcg INHALER IH SCH (21:24)
[2022-04-01 23:40] LABS: CALCIUM 8.9 mg/dL (8.5-10.1)
[2022-04-01 23:41] LABS: BLOOD UREA NITROGEN 19.6 mg/dL (7-18)
[2022-04-01 23:44] LABS: CREATININE 1.4 mg/dL (0.55-1.3)
[2022-04-02] MEDS: HEPARIN NA (PORCINE) 5,000 UNITS/ML 1ML VIAL SQ SCH ×3 (05:32→21:38)
[2022-04-02] MEDS: FUROSEMIDE 40 MG/4 ML INJECTABLE VIAL IVPUSH SCH ×2 (08:21→10:05)
[2022-04-02 09:03] LABS: BASO % 0.6 % (0-2.0); MCH 27.7 pg (25.7-33.7); MCHC 30.8 g/dl (32.0-35.9); MEAN PLT VOLUME 8.7 fl (7.5-11.1); MONO % 14.5 % (3.8-10.2); NEUT % 66.9 % (42.8-82.8); PLATELET COUNT 307 10^3/uL (134-434); RBC 5.78 M/mm3 (4.00-5.60); RDW 20.4 % (11.9-15.9); WHITE BLOOD COUNT 2.4 K/mm3 (4.0-10.0)
[2022-04-02 09:27] LABS: BLOOD UREA NITROGEN 19.7 mg/dL (7-18); CALCIUM 8.8 mg/dL (8.5-10.1)
[2022-04-02 09:28] LABS: ALBUMIN 2.8 g/dl (3.4-5.0); MAGNESIUM 1.8 mg/dL (1.8-2.4)
[2022-04-02 09:30] LABS: CREATININE 1.2 mg/dL (0.55-1.3); PHOSPHOROUS 3.5 mg/dL (2.5-4.9)
[2022-04-02 09:31] LABS: BILIRUBIN,TOTAL 0.9 mg/dL (0.2-1)
[2022-04-02 09:32] LABS: TOT PROT 5.9 g/dl (6.4-8.2)
[2022-04-02] MEDS ORDERED: LISINOPRIL 20 MG TABLET PO SCH (10:00)
[2022-04-02] MEDS ORDERED: amLODIPine BESYLATE 5 MG TABLET (FP) PO SCH (10:00)
[2022-04-02] MEDS ORDERED: predniSONE 20 MG TABLET (UD) PO SCH (10:00)
[2022-04-02] MEDS: ALBUTEROL SO4 HFA INHALER IH SCH ×2 (10:11→21:37)
[2022-04-02] MEDS: methylPREDNISolone NA SUCC 40 MG/1 ML VIAL IVPUSH SCH ×3 (10:12→21:36)
[2022-04-02] MEDS: BUDESONIDE/FORMETEROL FUMARATE 80/4.5 mcg INHALER IH SCH ×2 (10:12→21:38)
[2022-04-02] MEDS: amLODIPine BESYLATE 5 MG TABLET (FP) PO SCH (10:12)
[2022-04-02] MEDS: SILVER SULFADIAZINE 1% TOP CREAM 50 GM JAR TP SCH (13:27)
[2022-04-03] MEDS: methylPREDNISolone NA SUCC 40 MG/1 ML VIAL IVPUSH SCH ×4 (02:26→21:05)
[2022-04-03] MEDS: HEPARIN NA (PORCINE) 5,000 UNITS/ML 1ML VIAL SQ SCH ×3 (06:41→21:05)
[2022-04-03 08:31] LABS: HEMATOCRIT 50.4 % (35.4-49); HEMOGLOBIN 15.5 GM/dL (11.7-16.9); MCH 27.5 pg (25.7-33.7); MCHC 30.8 g/dl (32.0-35.9); MEAN CELL VOLUME 89.3 fl (80-96); MEAN PLT VOLUME 8.3 fl (7.5-11.1); PLATELET COUNT 312 10^3/uL (134-434); RBC 5.65 M/mm3 (4.00-5.60); RDW 19.7 % (11.9-15.9); WHITE BLOOD COUNT 2.6 K/mm3 (4.0-10.0)
[2022-04-03 08:55] LABS: CALCIUM 8.8 mg/dL (8.5-10.1)
[2022-04-03 08:56] LABS: ALBUMIN 2.8 g/dl (3.4-5.0); BLOOD UREA NITROGEN 22.3 mg/dL (7-18); MAGNESIUM 1.9 mg/dL (1.8-2.4)
[2022-04-03 08:59] LABS: CREATININE 1.1 mg/dL (0.55-1.3)
[2022-04-03 09:00] LABS: TOT PROT 5.9 g/dl (6.4-8.2)
[2022-04-03 09:01] LABS: BILIRUBIN,TOTAL 0.6 mg/dL (0.2-1)
[2022-04-03] MEDS: ALBUTEROL SO4 HFA INHALER IH SCH ×2 (09:14→20:42)
[2022-04-03] MEDS: amLODIPine BESYLATE 5 MG TABLET (FP) PO SCH (09:15)
[2022-04-03] MEDS: SILVER SULFADIAZINE 1% TOP CREAM 50 GM JAR TP SCH (09:15)
[2022-04-03] MEDS: FUROSEMIDE 40 MG/4 ML INJECTABLE VIAL IVPUSH SCH (09:15)
[2022-04-03] MEDS: PANTOPRAZOLE 40 MG TABLET PO SCH (09:30)
[2022-04-03] MEDS: BUDESONIDE/FORMETEROL FUMARATE 80/4.5 mcg INHALER IH SCH ×2 (09:30→21:05)
[2022-04-03] MEDS ORDERED: ACETAMINOPHEN 325 MG TABLET (FP) PO PRN (12:53)
[2022-04-03] MEDS ORDERED: KETOROLAC TROMETHAMINE 10 MG TABLET PO ONE (12:54)
[2022-04-03] MEDS ORDERED: POLYETHYLENE GLYCOL (HEALTHYLAX) 3350 17 GM PACKET PO ONE (13:00)
[2022-04-03] MEDS: LIDOCAINE 5% TOPICAL PATCH TP SCH (15:37)
[2022-04-03] MEDS ORDERED: LIDOCAINE PATCH REMOVAL MC SCH (22:00)
[2022-04-04] MEDS: HEPARIN NA (PORCINE) 5,000 UNITS/ML 1ML VIAL SQ SCH ×3 (05:54→22:56)
[2022-04-04 08:24] LABS: HEMATOCRIT 52.3 % (35.4-49); LYMPH % 4.2 % (8-40); MCH 27.6 pg (25.7-33.7); MCHC 30.6 g/dl (32.0-35.9); MEAN CELL VOLUME 90.1 fl (80-96); MEAN PLT VOLUME 8.5 fl (7.5-11.1); MONO % 6.4 % (3.8-10.2); NEUT % 89.4 % (42.8-82.8); PLATELET COUNT 292 10^3/uL (134-434); RDW 20.2 % (11.9-15.9)
[2022-04-04 08:43] LABS: BLOOD UREA NITROGEN 23.7 mg/dL (7-18)
[2022-04-04 08:44] LABS: BILIRUBIN,TOTAL 0.6 mg/dL (0.2-1)
[2022-04-04 08:46] LABS: CREATININE 1.2 mg/dL (0.55-1.3); TOT PROT 6.2 g/dl (6.4-8.2)
[2022-04-04] MEDS: ALBUTEROL SO4 HFA INHALER IH SCH ×2 (09:15→22:56)
[2022-04-04] MEDS: FUROSEMIDE 40 MG/4 ML INJECTABLE VIAL IVPUSH SCH (09:15)
[2022-04-04] MEDS: methylPREDNISolone NA SUCC 40 MG/1 ML VIAL IVPUSH SCH (09:15)
[2022-04-04] MEDS: PANTOPRAZOLE 40 MG TABLET PO SCH (09:16)
[2022-04-04] MEDS: LIDOCAINE 5% TOPICAL PATCH TP SCH (09:16)
[2022-04-04] MEDS: amLODIPine BESYLATE 5 MG TABLET (FP) PO SCH (09:16)
[2022-04-04] MEDS: SILVER SULFADIAZINE 1% TOP CREAM 50 GM JAR TP SCH (09:18)
[2022-04-04] MEDS: BUDESONIDE/FORMETEROL FUMARATE 80/4.5 mcg INHALER IH SCH (09:18)
[2022-04-04] MEDS ORDERED: SODIUM ZIRCONIUM CYCLOSILICATE (LOKELMA) 5 GM PACKET PO SCH (11:00)
[2022-04-04] MEDS ORDERED: MINERAL OIL/PET HY-PHL TOPICAL OINTMENT 454 GM JAR TP SCH (12:00)
[2022-04-04] MEDS ORDERED: amLODIPine BESYLATE 5 MG TABLET (FP) PO ONE (14:36)
[2022-04-04] MEDS ORDERED: ACETAMINOPHEN 325 MG TABLET (FP) PO PRN (19:05)
[2022-04-04] MEDS: LIDOCAINE PATCH REMOVAL MC SCH (22:59)
[2022-04-05] MEDS: BUDESONIDE/FORMETEROL FUMARATE 80/4.5 mcg INHALER IH SCH ×3 (00:18→21:40)
[2022-04-05] MEDS: HEPARIN NA (PORCINE) 5,000 UNITS/ML 1ML VIAL SQ SCH ×3 (05:45→21:40)
[2022-04-05] MEDS: ALBUTEROL SO4 HFA INHALER IH SCH ×2 (09:00→21:40)
[2022-04-05 09:12] LABS: BASO % 0.3 % (0-2.0); EOS % 0.1 % (0-4.5); HEMATOCRIT 55.1 % (35.4-49); HEMOGLOBIN 17.1 GM/dL (11.7-16.9); LYMPH % 17.3 % (8-40); MCH 27.6 pg (25.7-33.7); MCHC 30.9 g/dl (32.0-35.9); MEAN CELL VOLUME 89.3 fl (80-96); MEAN PLT VOLUME 8.1 fl (7.5-11.1); MONO % 7.5 % (3.8-10.2); NEUT % 74.8 % (42.8-82.8); PLATELET COUNT 288 10^3/uL (134-434); RBC 6.17 M/mm3 (4.00-5.60); RDW 20.3 % (11.9-15.9); WHITE BLOOD COUNT 5.7 K/mm3 (4.0-10.0)
[2022-04-05] MEDS: methylPREDNISolone NA SUCC 40 MG/1 ML VIAL IVPUSH SCH (09:14)
[2022-04-05] MEDS: FUROSEMIDE 40 MG/4 ML INJECTABLE VIAL IVPUSH SCH (09:14)
[2022-04-05] MEDS: PANTOPRAZOLE 40 MG TABLET PO SCH (09:15)
[2022-04-05] MEDS: amLODIPine BESYLATE 5 MG TABLET (FP) PO SCH (09:15)
[2022-04-05] MEDS: SODIUM ZIRCONIUM CYCLOSILICATE (LOKELMA) 5 GM PACKET PO SCH ×2 (09:15→09:17)
[2022-04-05] MEDS: LIDOCAINE 5% TOPICAL PATCH TP SCH (09:16)
[2022-04-05] MEDS: MINERAL OIL/PET HY-PHL TOPICAL OINTMENT 454 GM JAR TP SCH (09:16)
[2022-04-05 09:40] LABS: CHLORIDE 94 mmol/L (98-107); SODIUM 144 mmol/L (136-145)
[2022-04-05 09:48] LABS: BLOOD UREA NITROGEN 19.6 mg/dL (7-18); CALCIUM 8.6 mg/dL (8.5-10.1); GLUCOSE,RANDOM 116 mg/dL (74-106); MAGNESIUM 1.6 mg/dL (1.8-2.4)
[2022-04-05 09:51] LABS: CREATININE 1.1 mg/dL (0.55-1.3); SGOT/AST 22 U/L (15-37); SGPT/ALT 15 U/L (13-61)
[2022-04-05 09:53] LABS: ALK PHOS 140 U/L (45-117); TOT PROT 6.1 g/dl (6.4-8.2)
[2022-04-05 09:58] LABS: ANION GAP 5 MMOL/L (8-16); CO2 > 45 mmol/L (21-32)
[2022-04-05] MEDS ORDERED: methylPREDNISolone NA SUCC 40 MG/1 ML VIAL IVPUSH SCH (10:00)
[2022-04-05] MEDS ORDERED: POTASSIUM CHLORIDE TABS 10 MEQ TABLET.ER (FP) PO ONE (11:00)
[2022-04-05] MEDS ORDERED: POTASSIUM CHLORIDE ORAL LIQUID 20 MEQ/15 ML PO ONE (11:00)
[2022-04-05] MEDS ORDERED: MAGNESIUM OXIDE 400 MG TABLET (FP) PO ONE (11:00)
[2022-04-05] MEDS: LIDOCAINE PATCH REMOVAL MC SCH (21:40)
[2022-04-06] MEDS: HEPARIN NA (PORCINE) 5,000 UNITS/ML 1ML VIAL SQ SCH ×3 (06:26→21:38)
[2022-04-06] MEDS: ALBUTEROL SO4 HFA INHALER IH SCH ×2 (08:05→21:15)
[2022-04-06 09:08] LABS: BASO % 0.1 % (0-2.0); EOS % 0.1 % (0-4.5); HEMATOCRIT 54.5 % (35.4-49); HEMOGLOBIN 16.8 GM/dL (11.7-16.9); LYMPH % 21.8 % (8-40); MCH 27.3 pg (25.7-33.7); MCHC 30.8 g/dl (32.0-35.9); MEAN CELL VOLUME 88.7 fl (80-96); MEAN PLT VOLUME 8.4 fl (7.5-11.1); MONO % 9.2 % (3.8-10.2); NEUT % 68.8 % (42.8-82.8); PLATELET COUNT 266 10^3/uL (134-434); RBC 6.15 M/mm3 (4.00-5.60); RDW 20.3 % (11.9-15.9); WHITE BLOOD COUNT 4.8 K/mm3 (4.0-10.0)
[2022-04-06] MEDS: SODIUM ZIRCONIUM CYCLOSILICATE (LOKELMA) 5 GM PACKET PO SCH ×2 (09:09→09:22)
[2022-04-06] MEDS: amLODIPine BESYLATE 5 MG TABLET (FP) PO SCH (09:09)
[2022-04-06] MEDS: PANTOPRAZOLE 40 MG TABLET PO SCH (09:09)
[2022-04-06] MEDS: BUDESONIDE/FORMETEROL FUMARATE 80/4.5 mcg INHALER IH SCH ×2 (09:10→22:15)
[2022-04-06] MEDS: FUROSEMIDE 40 MG/4 ML INJECTABLE VIAL IVPUSH SCH ×2 (09:10→12:09)
[2022-04-06] MEDS: methylPREDNISolone NA SUCC 40 MG/1 ML VIAL IVPUSH SCH (09:11)
[2022-04-06] MEDS: LIDOCAINE 5% TOPICAL PATCH TP SCH (09:12)
[2022-04-06] MEDS: MINERAL OIL/PET HY-PHL TOPICAL OINTMENT 454 GM JAR TP SCH (09:12)
[2022-04-06 10:38] LABS: CALCIUM 8.8 mg/dL (8.5-10.1)
[2022-04-06 10:39] LABS: BLOOD UREA NITROGEN 17.2 mg/dL (7-18); MAGNESIUM 1.9 mg/dL (1.8-2.4)
[2022-04-06 10:41] LABS: CREATININE 0.9 mg/dL (0.55-1.3)
[2022-04-06 10:42] LABS: BILIRUBIN,TOTAL 0.9 mg/dL (0.2-1); TOT PROT 6.1 g/dl (6.4-8.2)
[2022-04-06] MEDS: AMOX TR/POT CLAV 875MG/125MG TABLETS (FP) PO SCH ×2 (12:30→17:27)
[2022-04-06] MEDS: SILVER SULFADIAZINE 1% TOP CREAM 50 GM JAR TP SCH ×2 (12:47→21:39)
[2022-04-06] MEDS: LIDOCAINE PATCH REMOVAL MC SCH (21:39)
[2022-04-07 04:22] VITALS: RESP 18
[2022-04-07] MEDS: HEPARIN NA (PORCINE) 5,000 UNITS/ML 1ML VIAL SQ SCH ×2 (06:34→13:47)
[2022-04-07] MEDS: AMOX TR/POT CLAV 875MG/125MG TABLETS (FP) PO SCH (07:51)
[2022-04-07] MEDS: ALBUTEROL SO4 HFA INHALER IH SCH (07:52)
[2022-04-07] MEDS: PANTOPRAZOLE 40 MG TABLET PO SCH (09:22)
[2022-04-07] MEDS: FUROSEMIDE 40 MG/4 ML INJECTABLE VIAL IVPUSH SCH (09:22)
[2022-04-07] MEDS: amLODIPine BESYLATE 5 MG TABLET (FP) PO SCH (09:22)
[2022-04-07] MEDS: LIDOCAINE 5% TOPICAL PATCH TP SCH (09:23)
[2022-04-07] MEDS: MINERAL OIL/PET HY-PHL TOPICAL OINTMENT 454 GM JAR TP SCH (09:26)
[2022-04-07] MEDS: SILVER SULFADIAZINE 1% TOP CREAM 50 GM JAR TP SCH (09:27)
[2022-04-07] MEDS: BUDESONIDE/FORMETEROL FUMARATE 80/4.5 mcg INHALER IH SCH (09:27)
[2022-04-07 09:35] LABS: BASO % 0.2 % (0-2.0); EOS % 0.5 % (0-4.5); HEMATOCRIT 56.9 % (35.4-49); HEMOGLOBIN 17.2 GM/dL (11.7-16.9); LYMPH % 20.2 % (8-40); MCHC 30.2 g/dl (32.0-35.9); MEAN CELL VOLUME 89.3 fl (80-96); MEAN PLT VOLUME 8.6 fl (7.5-11.1); MONO % 7.9 % (3.8-10.2); NEUT % 71.2 % (42.8-82.8); PLATELET COUNT 267 10^3/uL (134-434); RBC 6.36 M/mm3 (4.00-5.60); RDW 20.6 % (11.9-15.9); WHITE BLOOD COUNT 4.7 K/mm3 (4.0-10.0)
[2022-04-07] MEDS ORDERED: predniSONE 20 MG TABLET (UD) PO SCH (10:00)
[2022-04-07 10:09] LABS: ALBUMIN 3.2 g/dl (3.4-5.0)
[2022-04-07 10:10] LABS: BLOOD UREA NITROGEN 17.5 mg/dL (7-18); MAGNESIUM 1.8 mg/dL (1.8-2.4)
[2022-04-07 10:13] LABS: BILIRUBIN,TOTAL 0.9 mg/dL (0.2-1); CREATININE 0.8 mg/dL (0.55-1.3); TOT PROT 6.6 g/dl (6.4-8.2)
[2022-04-07 10:32] LABS: ANISOCYTOSIS 2+; MACROCYTOSIS 0; TARGET CELLS 2+
[2022-04-07 11:09] VITALS: BP 157/89; PULSE 86; TEMP 98
[2022-04-08] MEDS ORDERED: predniSONE 20 MG TABLET (UD) PO SCH (10:00)
== END 2022-04-07 14:49 | disposition home or self-care (01) | DRG 194 ==
LOC: JER 11:19 → JERBED 16:06 → J4S 20:08 → J6S 04-04 19:00
PROVIDERS: ADMIT Internal Medicine; ATTEND Nurse Practitioner Acute Care
DX: I11.0 Hypertensive heart disease with heart failure (principal); L03.115 Cellulitis of right lower limb; J44.1 Chronic obstructive pulmonary disease with (acute) exacerbation; L03.114 Cellulitis of left upper limb; I50.33 Acute on chronic diastolic (congestive) heart failure; F11.20 Opioid dependence, uncomplicated; N17.9 Acute kidney failure, unspecified; K76.0 Fatty (change of) liver, not elsewhere classified; M54.50 Low back pain, unspecified; Z91.14 Patient's other noncompliance with medication regimen; L98.498 Non-pressure chronic ulcer of skin of other sites with other specified severity; J96.21 Acute and chronic respiratory failure with hypoxia; J96.22 Acute and chronic respiratory failure with hypercapnia; Z86.718 Personal history of other venous thrombosis and embolism; Z99.81 Dependence on supplemental oxygen
CPT/HCPCS: 0241U-QW; 36415; 36600; 71045-TC-FY; 80048; 80053; 80061; 82550; 82553; 82803; 83036; 83735; 83880; 84100; 84443; 84484; 85025; 85610; 85730; 87040; 93005; 93010; 93970-TC; 97116-GP; 99291; J1644

== ENCOUNTER 2022-05-26 20:59 | Inpatient (IN) | payer OTHER ==
[2022-05-26 21:23] VITALS: BMI 25.7
[2022-05-26 22:18] LABS: VENOUS BASE EXCESS 5.8 mmol/L (-2-2); VENOUS O2 SATURATION 41.3 % (70-80); VENOUS PH 7.246 (7.310-7.410)
[2022-05-26] MEDS ORDERED: methylPREDNISolone NA SUCC 125 MG/2 ML VIAL IVPUSH ONE (22:18)
[2022-05-26 22:20] LABS: VENOUS PCO2 87.9 mmHg (38-52)
[2022-05-26 22:23] LABS: BASO % 1.1 % (0-2.0); EOS % 0.2 % (0-4.5); HEMATOCRIT 51.3 % (35.4-49); HEMOGLOBIN 15.6 GM/dL (11.7-16.9); LYMPH % 15.7 % (8-40); MCH 25.5 pg (25.7-33.7); MCHC 30.5 g/dl (32.0-35.9); MEAN CELL VOLUME 83.7 fl (80-96); MEAN PLT VOLUME 9.5 fl (7.5-11.1); MONO % 19.4 % (3.8-10.2); NEUT % 63.6 % (42.8-82.8); PLATELET COUNT 202 10^3/uL (134-434); RBC 6.13 M/mm3 (4.00-5.60); RDW 23.6 % (11.9-15.9); WHITE BLOOD COUNT 4.9 K/mm3 (4.0-10.0)
[2022-05-26] MEDS ORDERED: ALBUTEROL SO4 2.5/IPRATROPIUM 0.5 INH SOL 3 ML VIAL.NEB. NEB ONE (22:32)
[2022-05-26] MEDS ORDERED: methylPREDNISolone NA SUCC 125 MG/2 ML VIAL ONE (22:32)
[2022-05-26 22:33] LABS: INR 1.66 (0.83-1.09); PROTHROMBIN TIME (PATIENT) 19.2 SEC (9.7-13.0)
[2022-05-26 22:36] LABS: ACTIVATED PTT 36.1 SECONDS (25.2-36.5)
[2022-05-26] MEDS: ALBUTEROL SO4 2.5/IPRATROPIUM 0.5 INH SOL 3 ML VIAL.NEB. NEB SCH ×3 (22:46→22:51)
[2022-05-26 22:50] LABS: CALCIUM 8.7 mg/dL (8.5-10.1)
[2022-05-26 22:51] LABS: ALBUMIN 2.8 g/dl (3.4-5.0); BLOOD UREA NITROGEN 41.9 mg/dL (7-18)
[2022-05-26 22:55] LABS: BILIRUBIN,TOTAL 2.2 mg/dL (0.2-1); TOT PROT 5.8 g/dl (6.4-8.2)
[2022-05-26] MEDS ORDERED: FUROSEMIDE 40 MG/4 ML INJECTABLE VIAL IVPUSH ONE (23:08)
[2022-05-26] MEDS ORDERED: AZITHROMYCIN IVPB 500 MG in DEXTROSE 5%-WATER - 250 ML IVPB ONE (23:10)
[2022-05-26] MEDS ORDERED: AZITHROMYCIN IVPB 500 MG/250 ML BAG IVPB ONE (23:36)
[2022-05-26] MEDS ORDERED: FUROSEMIDE 40 MG/4 ML INJECTABLE VIAL ONE (23:36)
[2022-05-26 23:58] LABS: ANISOCYTOSIS 3+; MACROCYTOSIS 0; OVALOCYTE 1+
[2022-05-27] MEDS ORDERED: dilTIAZem HCL 50 MG/10 ML - 10 ML VIAL ONE (01:09)
[2022-05-27] MEDS ORDERED: dilTIAZem HCL 60 MG TABLET ONE (01:09)
[2022-05-27 01:44] LABS: EPI CELLS 4 /uL (0-25.1); HYALINE CASTS 2 /uL (0-3.1); PH,URINE 5.5 (5.0-8.0); URINE APPEARANCE CLEAR; URINE BACTERIA 3 /uL (0-1359); URINE BILIRUBIN NEGATIVE (NEGATIVE); URINE COLOR YELLOW; URINE GLUCOSE (UA) NEGATIVE (NEGATIVE); URINE KETONE NEGATIVE (NEGATIVE); URINE LEUK ESTERASE NEGATIVE (NEGATIVE); URINE NITRITE NEGATIVE (NEGATIVE); URINE PROTEIN 2+ (NEGATIVE); URINE RBC 7 /uL (0-23.9); URINE WBC 9 /uL (0-25.8)
[2022-05-27] MEDS ORDERED: FUROSEMIDE 40 MG/4 ML INJECTABLE VIAL IVPUSH ONE (01:45)
[2022-05-27] MEDS ORDERED: LEVALBUTEROL HCL 0.63 MG/3 ML VIAL.NEB. IH SCH (02:00)
[2022-05-27] MEDS ORDERED: methylPREDNISolone NA SUCC 125 MG/2 ML VIAL ONE (02:12)
[2022-05-27] MEDS: methylPREDNISolone NA SUCC 40 MG/1 ML VIAL IVPUSH SCH ×3 (02:18→17:00)
[2022-05-27] MEDS ORDERED: IPRATROPIUM BR 0.02% 0.5 MG/2.5 ML VIAL.NEB. NEB PRN (02:42)
[2022-05-27] MEDS: IPRATROPIUM BR 0.02% 0.5 MG/2.5 ML VIAL.NEB. NEB SCH ×5 (03:34→23:41)
[2022-05-27 05:36] LABS: BILIRUBIN,DIRECT 1.1 mg/dL (0.0-0.2)
[2022-05-27] MEDS: HEPARIN NA (PORCINE) 5,000 UNITS/ML 1ML VIAL SQ SCH ×3 (06:55→22:19)
[2022-05-27] MEDS ORDERED: HEPARIN NA (PORCINE) 5,000 UNITS/ML 1ML VIAL ONE (06:58)
[2022-05-27 07:17] LABS: ALLENS TEST POSITIVE; ARTERIAL BLD GAS O2 SATURATION 96.8 % (95-98); ARTERIAL BLOOD GAS BASE EXCESS 6.1 mmol/L (-2-2); ARTERIAL BLOOD GAS PO2 99.4 mmHg (80-100); ARTERIAL BLOOD GAS pH 7.313 (7.350-7.450)
[2022-05-27 07:18] LABS: VENT MODE ST; VENT RATE 16
[2022-05-27] MEDS: LEVALBUTEROL HCL 0.63 MG/3 ML VIAL.NEB. IH SCH ×4 (09:15→23:41)
[2022-05-27 10:17] LABS: HEMATOCRIT 53.8 % (35.4-49); HEMOGLOBIN 16.2 GM/dL (11.7-16.9); MCH 24.3 pg (25.7-33.7); PLATELET COUNT 204 10^3/uL (134-434); RBC 6.65 M/mm3 (4.00-5.60); RDW 23.9 % (11.9-15.9); WHITE BLOOD COUNT 2.6 K/mm3 (4.0-10.0)
[2022-05-27 10:37] LABS: CALCIUM 8.9 mg/dL (8.5-10.1)
[2022-05-27 10:38] LABS: ALBUMIN 2.9 g/dl (3.4-5.0); BLOOD UREA NITROGEN 42.7 mg/dL (7-18); MAGNESIUM 1.8 mg/dL (1.8-2.4)
[2022-05-27 10:40] LABS: CHOLESTEROL 89 mg/dL (50-200); TRIGLYCERIDES 45 mg/dL (0-150)
[2022-05-27 10:41] LABS: LDL CHOLESTEROL (ONLY SJRH) 28 mg/dL (5-100); PHOSPHOROUS 4.2 mg/dL (2.5-4.9)
[2022-05-27 10:43] LABS: HDL CHOLESTEROL 55 mg/dL (40-60)
[2022-05-27] MEDS: NICOTINE 7 MG/24 HOURS TOPICAL PATCH TD SCH (11:22)
[2022-05-27 11:30] LABS: ANISOCYTOSIS 2+; MACROCYTOSIS 1+; TARGET CELLS 2+; TEAR DROP CELLS 1+; TOXIC GRANULATION 2+
[2022-05-27] MEDS: amLODIPine BESYLATE 5 MG TABLET (FP) PO SCH (15:41)
[2022-05-27] MEDS ORDERED: MAGNESIUM OXIDE 400 MG TABLET (FP) PO ONE (16:09)
[2022-05-28] MEDS: methylPREDNISolone NA SUCC 40 MG/1 ML VIAL IVPUSH SCH ×2 (03:30→10:00)
[2022-05-28] MEDS: HEPARIN NA (PORCINE) 5,000 UNITS/ML 1ML VIAL SQ SCH ×3 (05:33→21:48)
[2022-05-28 07:20] LABS: BLOOD UREA NITROGEN 44.3 mg/dL (7-18); CALCIUM 8.5 mg/dL (8.5-10.1); MAGNESIUM 2.1 mg/dL (1.8-2.4)
[2022-05-28] MEDS: IPRATROPIUM BR 0.02% 0.5 MG/2.5 ML VIAL.NEB. NEB SCH ×4 (07:20→20:43)
[2022-05-28] MEDS: LEVALBUTEROL HCL 0.63 MG/3 ML VIAL.NEB. IH SCH ×4 (07:20→20:44)
[2022-05-28 07:23] LABS: CREATININE 1.6 mg/dL (0.55-1.3)
[2022-05-28 07:24] LABS: PHOSPHOROUS 3.4 mg/dL (2.5-4.9)
[2022-05-28] MEDS ORDERED: IBUPROFEN 200 MG TABLET PO ONE (08:15)
[2022-05-28] MEDS: NICOTINE 7 MG/24 HOURS TOPICAL PATCH TD SCH (09:43)
[2022-05-28] MEDS: amLODIPine BESYLATE 5 MG TABLET (FP) PO SCH (09:44)
[2022-05-28] MEDS ORDERED: FUROSEMIDE 40 MG/4 ML INJECTABLE VIAL IVPUSH SCH ×2 (10:00)
[2022-05-28] MEDS ORDERED: amLODIPine BESYLATE 5 MG TABLET (FP) PO ONE (10:01)
[2022-05-28] MEDS ORDERED: FUROSEMIDE 40 MG/4 ML INJECTABLE VIAL IVPUSH ONE (10:16)
[2022-05-28] MEDS ORDERED: POLYETHYLENE GLYCOL (HEALTHYLAX) 3350 17 GM PACKET PO PRN (19:06)
[2022-05-28] MEDS: POLYETHYLENE GLYCOL (HEALTHYLAX) 3350 17 GM PACKET PO SCH (19:51)
[2022-05-28] MEDS: FUROSEMIDE 40 MG/4 ML INJECTABLE VIAL IVPUSH SCH (21:47)
[2022-05-29] MEDS: HEPARIN NA (PORCINE) 5,000 UNITS/ML 1ML VIAL SQ SCH ×3 (05:45→21:34)
[2022-05-29] MEDS: IPRATROPIUM BR 0.02% 0.5 MG/2.5 ML VIAL.NEB. NEB SCH ×4 (07:15→20:26)
[2022-05-29] MEDS: LEVALBUTEROL HCL 0.63 MG/3 ML VIAL.NEB. IH SCH ×4 (07:15→20:26)
[2022-05-29 07:21] LABS: MCH 25.3 pg (25.7-33.7); MCHC 31.2 g/dl (32.0-35.9); MEAN CELL VOLUME 80.9 fl (80-96); MEAN PLT VOLUME 8.9 fl (7.5-11.1); PLATELET COUNT 193 10^3/uL (134-434); RBC 5.93 M/mm3 (4.00-5.60); RDW 24.2 % (11.9-15.9); WHITE BLOOD COUNT 5.1 K/mm3 (4.0-10.0)
[2022-05-29 07:28] LABS: ALBUMIN 2.8 g/dl (3.4-5.0); BLOOD UREA NITROGEN 44.6 mg/dL (7-18); CALCIUM 8.7 mg/dL (8.5-10.1)
[2022-05-29 07:31] LABS: CREATININE 1.5 mg/dL (0.55-1.3)
[2022-05-29 07:32] LABS: BILIRUBIN,TOTAL 1.2 mg/dL (0.2-1)
[2022-05-29 07:33] LABS: TOT PROT 5.7 g/dl (6.4-8.2)
[2022-05-29] MEDS: NICOTINE 7 MG/24 HOURS TOPICAL PATCH TD SCH (09:21)
[2022-05-29] MEDS: amLODIPine BESYLATE 5 MG TABLET (FP) PO SCH (09:21)
[2022-05-29] MEDS: FUROSEMIDE 40 MG/4 ML INJECTABLE VIAL IVPUSH SCH ×2 (09:22→21:34)
[2022-05-29] MEDS ORDERED: MINERAL OIL ENEMA 133 ML ENEMA RC ONE (18:06)
[2022-05-29] MEDS: POLYETHYLENE GLYCOL (HEALTHYLAX) 3350 17 GM PACKET PO SCH (19:39)
[2022-05-30] MEDS: HEPARIN NA (PORCINE) 5,000 UNITS/ML 1ML VIAL SQ SCH ×3 (05:38→22:45)
[2022-05-30 07:07] LABS: BASO % 0.1 % (0-2.0); EOS % 0.4 % (0-4.5); HEMATOCRIT 53.2 % (35.4-49); HEMOGLOBIN 16.3 GM/dL (11.7-16.9); LYMPH % 12.9 % (8-40); MCHC 30.6 g/dl (32.0-35.9); MEAN CELL VOLUME 81.6 fl (80-96); MEAN PLT VOLUME 8.8 fl (7.5-11.1); MONO % 9.2 % (3.8-10.2); NEUT % 77.4 % (42.8-82.8); PLATELET COUNT 207 10^3/uL (134-434); RBC 6.51 M/mm3 (4.00-5.60); RDW 23.8 % (11.9-15.9); WHITE BLOOD COUNT 5.8 K/mm3 (4.0-10.0)
[2022-05-30] MEDS: LEVALBUTEROL HCL 0.63 MG/3 ML VIAL.NEB. IH SCH ×4 (07:20→20:22)
[2022-05-30] MEDS: IPRATROPIUM BR 0.02% 0.5 MG/2.5 ML VIAL.NEB. NEB SCH ×4 (07:20→20:20)
[2022-05-30 07:28] LABS: CHLORIDE 93 mmol/L (98-107); SODIUM 143 mmol/L (136-145)
[2022-05-30 07:31] LABS: BLOOD UREA NITROGEN 34.2 mg/dL (7-18); CALCIUM 8.4 mg/dL (8.5-10.1)
[2022-05-30 07:32] LABS: ALBUMIN 2.8 g/dl (3.4-5.0); GLUCOSE,RANDOM 127 mg/dL (74-106); MAGNESIUM 1.5 mg/dL (1.8-2.4)
[2022-05-30 07:34] LABS: PHOSPHOROUS 3.3 mg/dL (2.5-4.9); SGPT/ALT 19 U/L (13-61)
[2022-05-30 07:35] LABS: CREATININE 1.4 mg/dL (0.55-1.3); SGOT/AST 32 U/L (15-37)
[2022-05-30 07:36] LABS: BILIRUBIN,TOTAL 1.4 mg/dL (0.2-1); TOT PROT 5.8 g/dl (6.4-8.2)
[2022-05-30 07:37] LABS: ALK PHOS 153 U/L (45-117)
[2022-05-30 07:40] LABS: ANION GAP 5 MMOL/L (8-16); CO2 > 45 mmol/L (21-32)
[2022-05-30] MEDS ORDERED: POTASSIUM CHLORIDE ORAL LIQUID 20 MEQ/15 ML PO ONE (08:11)
[2022-05-30] MEDS ORDERED: MAGNESIUM OXIDE 400 MG TABLET (FP) PO ONE (08:11)
[2022-05-30 09:37] LABS: ANISOCYTOSIS 2+; MACROCYTOSIS 0; TARGET CELLS 1+
[2022-05-30] MEDS: amLODIPine BESYLATE 5 MG TABLET (FP) PO SCH (10:03)
[2022-05-30] MEDS: FUROSEMIDE 40 MG/4 ML INJECTABLE VIAL IVPUSH SCH ×2 (10:03→22:45)
[2022-05-30] MEDS: NICOTINE 7 MG/24 HOURS TOPICAL PATCH TD SCH (10:03)
[2022-05-30] MEDS: POLYETHYLENE GLYCOL (HEALTHYLAX) 3350 17 GM PACKET PO SCH (18:14)
[2022-05-31] MEDS: HEPARIN NA (PORCINE) 5,000 UNITS/ML 1ML VIAL SQ SCH ×3 (06:28→22:30)
[2022-05-31 07:10] LABS: BASO % 0.2 % (0-2.0); HEMATOCRIT 52.5 % (35.4-49); HEMOGLOBIN 16.1 GM/dL (11.7-16.9); MCH 25.1 pg (25.7-33.7); MCHC 30.6 g/dl (32.0-35.9); MEAN PLT VOLUME 9.2 fl (7.5-11.1); MONO % 11.3 % (3.8-10.2); NEUT % 74.5 % (42.8-82.8); PLATELET COUNT 198 10^3/uL (134-434); RBC 6.41 M/mm3 (4.00-5.60); RDW 24.1 % (11.9-15.9); WHITE BLOOD COUNT 4.4 K/mm3 (4.0-10.0)
[2022-05-31 07:31] LABS: ALBUMIN 2.8 g/dl (3.4-5.0); BLOOD UREA NITROGEN 30.1 mg/dL (7-18); CALCIUM 8.4 mg/dL (8.5-10.1); MAGNESIUM 1.4 mg/dL (1.8-2.4)
[2022-05-31 07:34] LABS: CREATININE 1.2 mg/dL (0.55-1.3)
[2022-05-31 07:36] LABS: BILIRUBIN,TOTAL 2.1 mg/dL (0.2-1); TOT PROT 5.8 g/dl (6.4-8.2)
[2022-05-31] MEDS: LEVALBUTEROL HCL 0.63 MG/3 ML VIAL.NEB. IH SCH ×4 (07:45→20:24)
[2022-05-31] MEDS: IPRATROPIUM BR 0.02% 0.5 MG/2.5 ML VIAL.NEB. NEB SCH ×4 (07:45→20:23)
[2022-05-31] MEDS: FUROSEMIDE 40 MG/4 ML INJECTABLE VIAL IVPUSH SCH ×2 (09:08→22:30)
[2022-05-31] MEDS: amLODIPine BESYLATE 5 MG TABLET (FP) PO SCH (09:08)
[2022-05-31] MEDS: NICOTINE 7 MG/24 HOURS TOPICAL PATCH TD SCH (09:11)
[2022-05-31] MEDS ORDERED: MAGNESIUM SULF 50% (8.12 MEQ/2 ML-1 GM VIAL) IVPB ONE (09:15)
[2022-05-31] MEDS ORDERED: MAGNESIUM 2GM/50ML STERILE WATER IVPB IVPB ONE ×2 (09:36→17:45)
[2022-05-31] MEDS ORDERED: SPIRONOLACTONE 25 MG TABLET PO SCH (10:00)
[2022-06-01] MEDS: HEPARIN NA (PORCINE) 5,000 UNITS/ML 1ML VIAL SQ SCH ×3 (06:54→21:58)
[2022-06-01 07:35] LABS: CALCIUM 8.6 mg/dL (8.5-10.1)
[2022-06-01 07:36] LABS: ALBUMIN 2.7 g/dl (3.4-5.0); BLOOD UREA NITROGEN 32.3 mg/dL (7-18); MAGNESIUM 2.6 mg/dL (1.8-2.4)
[2022-06-01 07:39] LABS: CREATININE 1.2 mg/dL (0.55-1.3); PHOSPHOROUS 2.6 mg/dL (2.5-4.9)
[2022-06-01 07:40] LABS: BILIRUBIN,TOTAL 1.2 mg/dL (0.2-1); TOT PROT 5.8 g/dl (6.4-8.2)
[2022-06-01] MEDS: IPRATROPIUM BR 0.02% 0.5 MG/2.5 ML VIAL.NEB. NEB SCH ×4 (07:40→20:01)
[2022-06-01] MEDS: LEVALBUTEROL HCL 0.63 MG/3 ML VIAL.NEB. IH SCH ×4 (07:40→20:02)
[2022-06-01 07:59] LABS: HEMATOCRIT 53.1 % (35.4-49); HEMOGLOBIN 16.6 GM/dL (11.7-16.9); MCH 25.2 pg (25.7-33.7); MCHC 31.2 g/dl (32.0-35.9); MEAN CELL VOLUME 80.8 fl (80-96); MEAN PLT VOLUME 9.2 fl (7.5-11.1); PLATELET COUNT 210 10^3/uL (134-434); RBC 6.57 M/mm3 (4.00-5.60); RDW 24.3 % (11.9-15.9); WHITE BLOOD COUNT 4.6 K/mm3 (4.0-10.0)
[2022-06-01] MEDS: FUROSEMIDE 40 MG/4 ML INJECTABLE VIAL IVPUSH SCH ×2 (09:15→21:58)
[2022-06-01] MEDS: amLODIPine BESYLATE 5 MG TABLET (FP) PO SCH (09:15)
[2022-06-01] MEDS: NICOTINE 7 MG/24 HOURS TOPICAL PATCH TD SCH (09:16)
[2022-06-02] MEDS: HEPARIN NA (PORCINE) 5,000 UNITS/ML 1ML VIAL SQ SCH ×2 (06:45→14:29)
[2022-06-02 07:54] LABS: BLOOD UREA NITROGEN 30.4 mg/dL (7-18)
[2022-06-02 07:55] LABS: CALCIUM 8.8 mg/dL (8.5-10.1); MAGNESIUM 1.9 mg/dL (1.8-2.4)
[2022-06-02 07:57] LABS: CREATININE 1.2 mg/dL (0.55-1.3)
[2022-06-02 08:00] VITALS: RESP 18
[2022-06-02] MEDS: IPRATROPIUM BR 0.02% 0.5 MG/2.5 ML VIAL.NEB. NEB SCH ×3 (08:29→15:07)
[2022-06-02] MEDS: LEVALBUTEROL HCL 0.63 MG/3 ML VIAL.NEB. IH SCH ×3 (08:30→15:07)
[2022-06-02] MEDS: FUROSEMIDE 40 MG/4 ML INJECTABLE VIAL IVPUSH SCH (09:51)
[2022-06-02] MEDS: NICOTINE 7 MG/24 HOURS TOPICAL PATCH TD SCH (09:52)
[2022-06-02] MEDS: amLODIPine BESYLATE 5 MG TABLET (FP) PO SCH (09:52)
[2022-06-02] MEDS ORDERED: METOPROLOL TARTRATE 25 MG TABLET (FP) PO ONE (14:03)
[2022-06-02 15:59] VITALS: PULSE 85
[2022-06-02 18:22] VITALS: BP 112/76; TEMP 98.1
== END 2022-06-02 20:39 | disposition home or self-care (01) | DRG 194 ==
LOC: JER 20:59 → JERBED 05-27 00:47 → J2W 05-27 08:20
PROVIDERS: ADMIT Internal Medicine; ATTEND Internal Medicine
DX: I13.0 Hypertensive heart and chronic kidney disease with heart failure and stage 1 through stage 4 chronic kidney disease, or unspecified chronic kidney disease (principal); N17.9 Acute kidney failure, unspecified; J96.01 Acute respiratory failure with hypoxia; J96.02 Acute respiratory failure with hypercapnia; F10.10 Alcohol abuse, uncomplicated; I50.33 Acute on chronic diastolic (congestive) heart failure; F17.210 Nicotine dependence, cigarettes, uncomplicated; N18.9 Chronic kidney disease, unspecified; R60.1 Generalized edema; E87.3 Alkalosis; E87.29 Other acidosis; J44.1 Chronic obstructive pulmonary disease with (acute) exacerbation; L97.928 Non-pressure chronic ulcer of unspecified part of left lower leg with other specified severity; Z86.718 Personal history of other venous thrombosis and embolism; Z99.81 Dependence on supplemental oxygen
CPT/HCPCS: 0241U-QW; 36415; 36600; 71045-TC-FY; 74018-TC-FY; 76775-TC; 80048; 80053; 80061; 81003; 82248; 82436; 82550; 82553; 82570; 82803; 83735; 83880; 84100; 84133; 84156; 84300; 84439; 84443; 84484; 84540; 85025; 85027; 85610; 85730; 93005; 93010; 93306-TC; 94640; 94660; 97116-GP; 97161-GP; 99291; 99292; J1644

== ENCOUNTER 2022-07-29 20:14 | Inpatient (IN) | payer OTHER ==
[2022-07-29 22:33] LABS: POTASSIUM 5.2 mmol/L (3.5-5.1)
[2022-07-29 22:35] LABS: CALCIUM 8.6 mg/dL (8.5-10.1)
[2022-07-29 22:36] LABS: ALBUMIN 3.1 g/dl (3.4-5.0); BLOOD UREA NITROGEN 28.6 mg/dL (7-18); MAGNESIUM 2.1 mg/dL (1.8-2.4)
[2022-07-29 22:39] LABS: CREATININE 1.4 mg/dL (0.55-1.3)
[2022-07-29 22:40] LABS: BILIRUBIN,TOTAL 1.6 mg/dL (0.2-1); TOT PROT 6.7 g/dl (6.4-8.2)
[2022-07-29 22:44] LABS: N-TERMINAL BNP 2153.7 pg/ml (5-125)
[2022-07-29 23:37] LABS: INR 1.39 (0.83-1.09); PROTHROMBIN TIME (PATIENT) 16.1 SEC (9.7-13.0)
[2022-07-29 23:40] LABS: ACTIVATED PTT 37.5 SECONDS (25.2-36.5)
[2022-07-29 23:52] LABS: EOS % 1.2 % (0-4.5); HEMATOCRIT 50.3 % (35.4-49); HEMOGLOBIN 15.5 GM/dL (11.7-16.9); LYMPH % 23.8 % (8-40); MCHC 30.8 g/dl (32.0-35.9); MEAN CELL VOLUME 84.5 fl (80-96); MEAN PLT VOLUME 8.6 fl (7.5-11.1); MONO % 15.3 % (3.8-10.2); NEUT % 58.7 % (42.8-82.8); PLATELET COUNT 175 10^3/uL (134-434); RBC 5.95 M/mm3 (4.00-5.60); RDW 27.2 % (11.9-15.9); WHITE BLOOD COUNT 4.1 K/mm3 (4.0-10.0)
[2022-07-30 01:44] LABS: POTASSIUM 4.7 mmol/L (3.5-5.1)
[2022-07-30 01:45] LABS: CALCIUM 8.5 mg/dL (8.5-10.1)
[2022-07-30 01:46] LABS: BLOOD UREA NITROGEN 27.5 mg/dL (7-18)
[2022-07-30 01:49] LABS: CREATININE 1.4 mg/dL (0.55-1.3)
[2022-07-30] MEDS ORDERED: DOCUSATE SODIUM 100 MG CAPSULE (FP) PO PRN (02:51)
[2022-07-30] MEDS ORDERED: ACETAMINOPHEN 325 MG TABLET (FP) PO PRN (02:51)
[2022-07-30] MEDS ORDERED: ALBUTEROL SO4 HFA INHALER IH PRN (02:57)
[2022-07-30] MEDS ORDERED: ALBUTEROL SO4 2.5/IPRATROPIUM 0.5 INH SOL 3 ML VIAL.NEB. NEB ONE ×2 (03:37→03:55)
[2022-07-30] MEDS ORDERED: FUROSEMIDE 40 MG/4 ML INJECTABLE VIAL IVPUSH ONE (03:37)
[2022-07-30] MEDS ORDERED: FUROSEMIDE 40 MG/4 ML INJECTABLE VIAL ONE (03:55)
[2022-07-30] MEDS ORDERED: AZITHROMYCIN IVPB 500 MG/250 ML BAG IVPB ONE ×2 (04:11→04:16)
[2022-07-30 04:28] LABS: ANISOCYTOSIS 2+; MACROCYTOSIS 1+; TARGET CELLS 2+; TEAR DROP CELLS 1+
[2022-07-30] MEDS ORDERED: AZITHROMYCIN 250 MG TABLET PO ONE (05:05)
[2022-07-30] MEDS ORDERED: AZITHROMYCIN 500 MG TABLET ONE (05:10)
[2022-07-30 06:24] LABS: HEMATOCRIT 48.1 % (35.4-49); HEMOGLOBIN 15.3 GM/dL (11.7-16.9); MCH 26.8 pg (25.7-33.7); MCHC 31.7 g/dl (32.0-35.9); MEAN CELL VOLUME 84.5 fl (80-96); PLATELET COUNT 156 10^3/uL (134-434); WHITE BLOOD COUNT 3.6 K/mm3 (4.0-10.0)
[2022-07-30 06:45] LABS: BLOOD UREA NITROGEN 25.6 mg/dL (7-18); CALCIUM 8.4 mg/dL (8.5-10.1)
[2022-07-30 06:48] LABS: CREATININE 1.2 mg/dL (0.55-1.3)
[2022-07-30 06:49] LABS: PHOSPHOROUS 3.2 mg/dL (2.5-4.9)
[2022-07-30] MEDS: HEPARIN NA (PORCINE) 5,000 UNITS/ML 1ML VIAL SQ SCH ×3 (10:00→21:27)
[2022-07-30] MEDS: CITALOPRAM HYDROBROMIDE 20 MG TABLET PO SCH (10:24)
[2022-07-30] MEDS: CEFTRIAXONE 1 GM in DEXTROSE 5%-WATER - 50 ML IVPB SCH (10:24)
[2022-07-30] MEDS: amLODIPine BESYLATE 5 MG TABLET (FP) PO SCH (10:24)
[2022-07-30 10:36] VITALS: BMI 25.1
[2022-07-30] MEDS ORDERED: FUROSEMIDE 40 MG/4 ML INJECTABLE VIAL IVPUSH SCH (14:00)
[2022-07-30] MEDS: BUDESONIDE/FORMETEROL FUMARATE 80/4.5 mcg INHALER IH SCH ×2 (14:14→21:29)
[2022-07-30] MEDS: metoPROLOL SUCCINATE 25 MG TAB.SR.24H (FP) PO SCH (21:27)
[2022-07-31] MEDS: HEPARIN NA (PORCINE) 5,000 UNITS/ML 1ML VIAL SQ SCH ×3 (06:02→22:36)
[2022-07-31 06:41] VITALS: RESP 18
[2022-07-31] MEDS ORDERED: FUROSEMIDE 40 MG/4 ML INJECTABLE VIAL IVPUSH ONE (08:01)
[2022-07-31] MEDS: CEFTRIAXONE 1 GM in DEXTROSE 5%-WATER - 50 ML IVPB SCH (09:00)
[2022-07-31] MEDS: amLODIPine BESYLATE 5 MG TABLET (FP) PO SCH (09:00)
[2022-07-31] MEDS: BUDESONIDE/FORMETEROL FUMARATE 80/4.5 mcg INHALER IH SCH ×2 (09:01→22:36)
[2022-07-31] MEDS: CITALOPRAM HYDROBROMIDE 20 MG TABLET PO SCH (09:01)
[2022-07-31] MEDS ORDERED: AZITHROMYCIN IVPB 250 MG in DEXTROSE 5%-WATER - 250 ML IVPB SCH (10:00)
[2022-07-31] MEDS ORDERED: AZITHROMYCIN 250 MG TABLET PO SCH (10:00)
[2022-07-31 10:50] LABS: BASO % 0.4 % (0-2.0); EOS % 1.9 % (0-4.5); HEMATOCRIT 51.3 % (35.4-49); HEMOGLOBIN 15.5 GM/dL (11.7-16.9); LYMPH % 18.8 % (8-40); MCH 25.5 pg (25.7-33.7); MCHC 30.3 g/dl (32.0-35.9); MEAN CELL VOLUME 84.2 fl (80-96); MEAN PLT VOLUME 9.2 fl (7.5-11.1); MONO % 10.2 % (3.8-10.2); NEUT % 68.7 % (42.8-82.8); PLATELET COUNT 182 10^3/uL (134-434); RBC 6.09 M/mm3 (4.00-5.60); RDW 26.1 % (11.9-15.9); WHITE BLOOD COUNT 3.8 K/mm3 (4.0-10.0)
[2022-07-31 11:12] LABS: CALCIUM 8.8 mg/dL (8.5-10.1)
[2022-07-31 11:13] LABS: ALBUMIN 3.1 g/dl (3.4-5.0); BLOOD UREA NITROGEN 16.4 mg/dL (7-18)
[2022-07-31 11:16] LABS: CREATININE 1.1 mg/dL (0.55-1.3)
[2022-07-31 11:18] LABS: BILIRUBIN,TOTAL 1.9 mg/dL (0.2-1); TOT PROT 6.5 g/dl (6.4-8.2)
[2022-07-31] MEDS: BACITRACIN ZINC 15 GM TUBE TOPICAL OINTMENT TP SCH (17:30)
[2022-07-31] MEDS: metoPROLOL SUCCINATE 25 MG TAB.SR.24H (FP) PO SCH (22:36)
[2022-08-01] MEDS: HEPARIN NA (PORCINE) 5,000 UNITS/ML 1ML VIAL SQ SCH (06:01)
[2022-08-01 08:48] VITALS: BP 138/77; PULSE 75; TEMP 98.3
[2022-08-01] MEDS ORDERED: FUROSEMIDE 40 MG TABLET (FP) PO SCH (10:00)
[2022-08-01] MEDS: CITALOPRAM HYDROBROMIDE 20 MG TABLET PO SCH (10:28)
[2022-08-01] MEDS: BACITRACIN ZINC 15 GM TUBE TOPICAL OINTMENT TP SCH (10:29)
[2022-08-01] MEDS: amLODIPine BESYLATE 5 MG TABLET (FP) PO SCH (10:29)
[2022-08-01] MEDS: BUDESONIDE/FORMETEROL FUMARATE 80/4.5 mcg INHALER IH SCH (10:30)
== END 2022-08-01 12:30 | disposition home or self-care (01) | DRG 194 ==
LOC: JER 20:14 → JERBED 07-30 00:49 → J7W 07-30 08:57
PROVIDERS: ADMIT Internal Medicine; ATTEND Internal Medicine
DX: I11.0 Hypertensive heart disease with heart failure (principal); I50.33 Acute on chronic diastolic (congestive) heart failure; J44.9 Chronic obstructive pulmonary disease, unspecified; L97.518 Non-pressure chronic ulcer of other part of right foot with other specified severity; F10.10 Alcohol abuse, uncomplicated; K76.0 Fatty (change of) liver, not elsewhere classified; F11.10 Opioid abuse, uncomplicated; M54.50 Low back pain, unspecified; Z91.199 Patient's noncompliance with other medical treatment and regimen due to unspecified reason; Z99.81 Dependence on supplemental oxygen
CPT/HCPCS: 0241U-QW; 36415; 71045-TC-FY; 80048; 80053; 83735; 83880; 84100; 84484; 85025; 85027; 85610; 85730; 93005; 93010; 93970-TC; 99285-25; J1644

== ENCOUNTER 2022-09-03 18:05 | Inpatient (IN) | payer OTHER ==
[2022-09-03] MEDS ORDERED: ACETAMINOPHEN 1000 MG/100 ML BAG IVPB ONE (19:27)
[2022-09-03] MEDS ORDERED: ACETAMINOPHEN INJECTION 100 ML IVPB ONE (19:53)
[2022-09-03] MEDS ORDERED: FUROSEMIDE 40 MG/4 ML INJECTABLE VIAL IVPUSH ONE (19:54)
[2022-09-03] MEDS ORDERED: morphine CARPU-JECT 2 MG/1 ML DISP.SYRIN IVPUSH ONE (19:54)
[2022-09-03] MEDS ORDERED: FUROSEMIDE 40 MG/4 ML INJECTABLE VIAL ONE (20:08)
[2022-09-03 20:18] LABS: VENOUS BASE EXCESS 5.6 mmol/L (-2-2); VENOUS O2 SATURATION 45.6 % (70-80); VENOUS PH 7.216 (7.310-7.410)
[2022-09-03] MEDS ORDERED: LIDOCAINE HCL 2% JELLY 6 ML TP ONE (20:18)
[2022-09-03 20:39] LABS: BASO % 0.3 % (0-2.0); EOS % 0.3 % (0-4.5); HEMATOCRIT 53.1 % (35.4-49); HEMOGLOBIN 15.9 GM/dL (11.7-16.9); LYMPH % 18.6 % (8-40); MCH 25.4 pg (25.7-33.7); MCHC 29.9 g/dl (32.0-35.9); MEAN PLT VOLUME 9.9 fl (7.5-11.1); NEUT % 64.8 % (42.8-82.8); PLATELET COUNT 171 10^3/uL (134-434); POTASSIUM 4.5 mmol/L (3.5-5.1); RBC 6.25 M/mm3 (4.00-5.60); RDW 22.9 % (11.9-15.9); WHITE BLOOD COUNT 2.8 K/mm3 (4.0-10.0)
[2022-09-03 20:40] LABS: INR 1.65 (0.83-1.09); PROTHROMBIN TIME (PATIENT) 19.1 SEC (9.7-13.0)
[2022-09-03 20:41] LABS: CALCIUM 8.8 mg/dL (8.5-10.1)
[2022-09-03 20:42] LABS: ALBUMIN 3.1 g/dl (3.4-5.0); BLOOD UREA NITROGEN 33.1 mg/dL (7-18); MAGNESIUM 1.9 mg/dL (1.8-2.4)
[2022-09-03 20:44] LABS: EPI CELLS 27 /uL (0-25.1); HYALINE CASTS 3 /uL (0-3.1); PH,URINE 5.5 (5.0-8.0); URINE APPEARANCE CLOUDY; URINE BACTERIA 26 /uL (0-1359); URINE BILIRUBIN 1+ (NEGATIVE); URINE COLOR DK YELLOW; URINE GLUCOSE (UA) NEGATIVE (NEGATIVE); URINE KETONE NEGATIVE (NEGATIVE); URINE LEUK ESTERASE NEGATIVE (NEGATIVE); URINE NITRITE NEGATIVE (NEGATIVE); URINE PROTEIN 3+ (NEGATIVE); URINE RBC 25 /uL (0-23.9); URINE WBC 35 /uL (0-25.8)
[2022-09-03 20:45] LABS: CREATININE 1.7 mg/dL (0.55-1.3)
[2022-09-03 20:46] LABS: BILIRUBIN,TOTAL 1.8 mg/dL (0.2-1)
[2022-09-03 20:47] LABS: TOT PROT 6.7 g/dl (6.4-8.2)
[2022-09-03 21:56] LABS: ANISOCYTOSIS 1+; PLATELET ESTIMATE NORMAL
[2022-09-03 21:57] LABS: TARGET CELLS FEW
[2022-09-03 22:10] LABS: VENOUS BASE EXCESS 6.7 mmol/L (-2-2); VENOUS O2 SATURATION 52.7 % (70-80); VENOUS PH 7.238 (7.310-7.410)
[2022-09-03 22:11] LABS: VENOUS PCO2 93.1 mmHg (38-52)
[2022-09-03] MEDS ORDERED: methylPREDNISolone NA SUCC 125 MG/2 ML VIAL IVPUSH ONE (22:13)
[2022-09-03] MEDS ORDERED: ALBUTEROL SO4 2.5/IPRATROPIUM 0.5 INH SOL 3 ML VIAL.NEB. NEB ONE (22:37)
[2022-09-03] MEDS ORDERED: methylPREDNISolone NA SUCC 125 MG/2 ML VIAL ONE ×2 (22:38→22:39)
[2022-09-03] MEDS: ALBUTEROL SO4 2.5/IPRATROPIUM 0.5 INH SOL 3 ML VIAL.NEB. NEB SCH ×3 (22:49→23:15)
[2022-09-04 05:57] VITALS: BMI 25.4
[2022-09-04] MEDS ORDERED: FUROSEMIDE 40 MG/4 ML INJECTABLE VIAL IVPUSH ONE (06:22)
[2022-09-04] MEDS ORDERED: ACETAMINOPHEN 325 MG TABLET (FP) PO PRN (06:50)
[2022-09-04 08:41] LABS: POTASSIUM 4.5 mmol/L (3.5-5.1)
[2022-09-04 08:42] LABS: HEMATOCRIT 56.3 % (35.4-49); HEMOGLOBIN 17.2 GM/dL (11.7-16.9); MCH 25.7 pg (25.7-33.7); MCHC 30.6 g/dl (32.0-35.9); MEAN CELL VOLUME 84.1 fl (80-96); MEAN PLT VOLUME 9.5 fl (7.5-11.1); PLATELET COUNT 160 10^3/uL (134-434); RBC 6.69 M/mm3 (4.00-5.60); RDW 22.9 % (11.9-15.9); WHITE BLOOD COUNT 2.9 K/mm3 (4.0-10.0)
[2022-09-04 08:44] LABS: CALCIUM 8.7 mg/dL (8.5-10.1)
[2022-09-04 08:45] LABS: ALBUMIN 2.5 g/dl (3.4-5.0); BLOOD UREA NITROGEN 32.4 mg/dL (7-18); MAGNESIUM 1.7 mg/dL (1.8-2.4)
[2022-09-04 08:48] LABS: CREATININE 1.6 mg/dL (0.55-1.3); PHOSPHOROUS 4.2 mg/dL (2.5-4.9)
[2022-09-04 08:50] LABS: BILIRUBIN,TOTAL 1.8 mg/dL (0.2-1); TOT PROT 5.8 g/dl (6.4-8.2)
[2022-09-04] MEDS: metoPROLOL SUCCINATE 25 MG TAB.SR.24H (FP) PO SCH (09:10)
[2022-09-04] MEDS: CITALOPRAM HYDROBROMIDE 20 MG TABLET PO SCH (09:10)
[2022-09-04] MEDS ORDERED: FUROSEMIDE 40 MG/4 ML INJECTABLE VIAL IVPUSH SCH (14:00)
[2022-09-04 16:23] LABS: ARTERIAL BLD GAS O2 SATURATION 90.5 % (95-98); ARTERIAL BLOOD GAS BASE EXCESS 9.1 mmol/L (-2-2); ARTERIAL BLOOD GAS PO2 68.1 mmHg (80-100); ARTERIAL BLOOD GAS pH 7.291 (7.350-7.450)
[2022-09-04 16:29] LABS: ALLENS TEST POSITIVE
[2022-09-04] MEDS: HEPARIN NA (PORCINE) 5,000 UNITS/ML 1ML VIAL SQ SCH (23:18)
[2022-09-04] MEDS: NYSTATIN 100,000 UNIT/GM TOPICAL CREAM 15 GM TUBE TP SCH (23:23)
[2022-09-05] MEDS: HEPARIN NA (PORCINE) 5,000 UNITS/ML 1ML VIAL SQ SCH ×3 (06:53→21:50)
[2022-09-05] MEDS: FUROSEMIDE 40 MG/4 ML INJECTABLE VIAL IVPUSH SCH ×2 (06:53→14:26)
[2022-09-05] MEDS: NYSTATIN 100,000 UNIT/GM TOPICAL CREAM 15 GM TUBE TP SCH ×2 (09:29→21:49)
[2022-09-05] MEDS: amLODIPine BESYLATE 5 MG TABLET (FP) PO SCH (09:29)
[2022-09-05] MEDS: CITALOPRAM HYDROBROMIDE 20 MG TABLET PO SCH (09:29)
[2022-09-05] MEDS: metoPROLOL SUCCINATE 25 MG TAB.SR.24H (FP) PO SCH (09:29)
[2022-09-06] MEDS: FUROSEMIDE 40 MG/4 ML INJECTABLE VIAL IVPUSH SCH ×2 (07:43→13:59)
[2022-09-06] MEDS: HEPARIN NA (PORCINE) 5,000 UNITS/ML 1ML VIAL SQ SCH ×2 (07:43→14:00)
[2022-09-06 07:47] LABS: HEMATOCRIT 48.8 % (35.4-49); HEMOGLOBIN 14.7 GM/dL (11.7-16.9); MCH 25.1 pg (25.7-33.7); MCHC 30.2 g/dl (32.0-35.9); MEAN PLT VOLUME 8.7 fl (7.5-11.1); PLATELET COUNT 155 10^3/uL (134-434); RBC 5.88 M/mm3 (4.00-5.60); RDW 22.6 % (11.9-15.9); WHITE BLOOD COUNT 3.8 K/mm3 (4.0-10.0)
[2022-09-06 08:08] LABS: POTASSIUM 4.7 mmol/L (3.5-5.1)
[2022-09-06 08:10] LABS: CALCIUM 8.6 mg/dL (8.5-10.1)
[2022-09-06 08:11] LABS: MAGNESIUM 1.8 mg/dL (1.8-2.4)
[2022-09-06 08:14] LABS: CREATININE 1.2 mg/dL (0.55-1.3)
[2022-09-06] MEDS: amLODIPine BESYLATE 5 MG TABLET (FP) PO SCH (09:37)
[2022-09-06] MEDS: CITALOPRAM HYDROBROMIDE 20 MG TABLET PO SCH (09:38)
[2022-09-06] MEDS: NYSTATIN 100,000 UNIT/GM TOPICAL CREAM 15 GM TUBE TP SCH ×2 (09:39→21:22)
[2022-09-06] MEDS ORDERED: ENOXAPARIN NA (PORCINE) 80 MG/0.8 ML DISP.SYRIN SQ ONE (15:57)
[2022-09-07] MEDS ORDERED: FUROSEMIDE 40 MG TABLET (FP) PO SCH (06:00)
[2022-09-07] MEDS: FUROSEMIDE 40 MG TABLET (FP) PO SCH ×2 (06:30→14:02)
[2022-09-07] MEDS: CITALOPRAM HYDROBROMIDE 20 MG TABLET PO SCH (09:31)
[2022-09-07] MEDS: amLODIPine BESYLATE 5 MG TABLET (FP) PO SCH (09:32)
[2022-09-07] MEDS: NYSTATIN 100,000 UNIT/GM TOPICAL CREAM 15 GM TUBE TP SCH (09:34)
[2022-09-07] MEDS ORDERED: APIXABAN 5 MG TABLET PO SCH (10:00)
[2022-09-07 15:24] VITALS: BP 134/87; PULSE 75; RESP 22; TEMP 98.6
[2022-09-14] MEDS ORDERED: APIXABAN 5 MG TABLET PO SCH (10:00)
== END 2022-09-07 16:46 | disposition home or self-care (01) | DRG 194 ==
LOC: JER 18:05 → JERBED 22:13 → J4W 09-04 05:02
PROVIDERS: ADMIT Internal Medicine; ATTEND Internal Medicine
DX: I11.0 Hypertensive heart disease with heart failure (principal); J96.21 Acute and chronic respiratory failure with hypoxia; N17.9 Acute kidney failure, unspecified; I31.39 Other pericardial effusion (noninflammatory); D75.1 Secondary polycythemia; E87.29 Other acidosis; I82.C11 Acute embolism and thrombosis of right internal jugular vein; Z99.81 Dependence on supplemental oxygen; J96.22 Acute and chronic respiratory failure with hypercapnia; F17.210 Nicotine dependence, cigarettes, uncomplicated; K76.1 Chronic passive congestion of liver; R74.01 Elevation of levels of liver transaminase levels; I50.33 Acute on chronic diastolic (congestive) heart failure; B35.3 Tinea pedis; Z91.148 Patient's other noncompliance with medication regimen for other reason
CPT/HCPCS: 0241U-QW; 36415; 36600; 71045-TC-FY; 80048; 80053; 81003; 82803; 83735; 83880; 84100; 84484; 85025; 85027; 85610; 86850; 86900; 86901; 87040; 87086; 93005; 93010; 93306-TC; 93971; 94660; 99285-25; J1644

== ENCOUNTER 2023-02-24 10:31 | Emergency (ER) | payer OTHER, MEDICARE ==
[2023-02-24 10:40] VITALS: BP 188/96; PULSE 77; RESP 18; TEMP 98; BMI 22.8
[2023-02-24] MEDS ORDERED: methylPREDNISolone NA SUCC 125 MG/2 ML VIAL IVPUSH ONE (11:29)
[2023-02-24] MEDS ORDERED: FAMOTIDINE 20 MG/50 ML IVPB 20 MG/50 ML MG IVPB ONE ×2 (11:29→11:40)
[2023-02-24] MEDS ORDERED: methylPREDNISolone NA SUCC 125 MG/2 ML VIAL ONE (11:40)
[2023-02-24] MEDS ORDERED: diphenhydrAMINE HCL 25 MG CAPSULE (FP) PO ONE (11:40)
== END 2023-02-24 13:24 | disposition home or self-care (01) ==
LOC: JER 10:31
PROC: 3E033GC Introduction of Other Therapeutic Substance into Peripheral Vein, Percutaneous Approach (ICD-10-PCS; principal; 2023-02-24)
PROC: 3E033GC Introduction of Other Therapeutic Substance into Peripheral Vein, Percutaneous Approach (ICD-10-PCS; 2023-02-24)
PROC: 3E033GC Introduction of Other Therapeutic Substance into Peripheral Vein, Percutaneous Approach (ICD-10-PCS; 2023-02-24)
DX: R22.0 Localized swelling, mass and lump, head (principal); T78.3XXA Angioneurotic edema, initial encounter
CPT/HCPCS: 99284-25

== ENCOUNTER 2023-03-15 10:08 | Inpatient (IN) | payer MEDICARE, OTHER ==
[2023-03-15 10:12] VITALS: RESP 16; TEMP 98.8; BMI 25.7
[2023-03-15] MEDS ORDERED: ANAPHYLAXIS KIT ONE (10:21)
[2023-03-15] MEDS ORDERED: methylPREDNISolone NA SUCC 125 MG/2 ML VIAL ONE (10:24)
[2023-03-15] MEDS ORDERED: FAMOTIDINE 20 MG/50 ML IVPB 20 MG/50 ML MG IVPB ONE (10:35)
[2023-03-15] MEDS: EPINEPHrine 1:1,000 0.3 MG/0.3 ML SYR IM ONE (10:44)
[2023-03-15] MEDS: DEXAMETHASONE SOD PHOSPHATE 10 MG/1 ML VIAL IVPUSH SCH (10:50)
[2023-03-15 11:27] LABS: BASO % 0.5 % (0-2.0); EOS % 0.6 % (0-4.5); HEMATOCRIT 43.9 % (35.4-49); HEMOGLOBIN 14.2 GM/dL (11.7-16.9); LYMPH % 18.3 % (8-40); MCH 29.1 pg (25.7-33.7); MCHC 32.3 g/dl (32.0-35.9); MEAN CELL VOLUME 90.2 fl (80-96); MEAN PLT VOLUME 8.9 fl (7.5-11.1); MONO % 5.9 % (3.8-10.2); NEUT % 74.7 % (42.8-82.8); PLATELET COUNT 316 10^3/uL (134-434); RBC 4.87 M/mm3 (4.00-5.60); RDW 16.5 % (11.9-15.9); WHITE BLOOD COUNT 11.6 K/mm3 (4.0-10.0)
[2023-03-15 11:28] LABS: VENOUS BASE EXCESS -2.2 mmol/L (-2-2); VENOUS O2 SATURATION 18.6 % (70-80)
[2023-03-15 11:30] LABS: VENOUS PCO2 118.5 mmHg (38-52); VENOUS PH 7.053 (7.310-7.410)
[2023-03-15] MEDS ORDERED: ALBUTEROL SO4 2.5/IPRATROPIUM 0.5 INH SOL 3 ML VIAL.NEB. NEB ONE ×2 (11:36→12:05)
[2023-03-15 11:39] LABS: INR 0.98 (0.83-1.09); PROTHROMBIN TIME (PATIENT) 11.4 SEC (9.7-13.0)
[2023-03-15 11:42] LABS: ACTIVATED PTT 31.2 SECONDS (25.2-36.5)
[2023-03-15] MEDS ORDERED: NALOXONE HCL 0.4 MG/ML VIAL ONE ×2 (11:53→13:12)
[2023-03-15 11:54] LABS: POTASSIUM 5.2 mmol/L (3.5-5.1)
[2023-03-15 11:58] LABS: ALBUMIN 3.6 g/dl (3.4-5.0); CALCIUM 10.4 mg/dL (8.5-10.1)
[2023-03-15 11:59] LABS: BLOOD UREA NITROGEN 24.3 mg/dL (7-18)
[2023-03-15 12:01] LABS: CREATININE 1.2 mg/dL (0.55-1.3)
[2023-03-15 12:03] LABS: BILIRUBIN,TOTAL 0.3 mg/dL (0.2-1); TOT PROT 7.3 g/dl (6.4-8.2)
[2023-03-15] MEDS: NALOXONE HCL 0.4 MG/ML VIAL IVPUSH ONE ×3 (12:03→13:17)
[2023-03-15] MEDS: ALBUTEROL SO4 2.5/IPRATROPIUM 0.5 INH SOL 3 ML VIAL.NEB. NEB SCH (12:03)
[2023-03-15 12:20] VITALS: BP 157/88; PULSE 75
[2023-03-15 13:20] LABS: VENOUS BASE EXCESS 2.6 mmol/L (-2-2); VENOUS PH 7.243 (7.310-7.410)
[2023-03-15 13:22] LABS: VENOUS PCO2 77.2 mmHg (38-52)
[2023-03-15 15:31] LABS: VENOUS O2 SATURATION 68.2 % (70-80); VENOUS PCO2 67.4 mmHg (38-52); VENOUS PH 7.265 (7.310-7.410)
[2023-03-15] MEDS ORDERED: DEXAMETHASONE SOD PHOSPHATE 10 MG/1 ML VIAL IVPUSH SCH (18:00)
[2023-03-15] MEDS ORDERED: MUPIROCIN 2% TOPICAL OINTMENT FOR DECOLONIZATION NS SCH (22:00)
[2023-03-15] MEDS ORDERED: HEPARIN NA (PORCINE) 5,000 UNITS/ML 1ML VIAL SQ SCH (22:00)
[2023-03-15] MEDS ORDERED: CHLORHEXIDINE GLUCONATE 4% CLEANSER FOR DECOLONIZATION TP SCH (22:00)
[2023-03-15] MEDS ORDERED: FAMOTIDINE 20 MG/50 ML IVPB 20 MG/50 ML MG IVPB SCH (22:00)
== END 2023-03-15 18:04 | disposition left against medical advice (07) | DRG 915 ==
LOC: JER 10:08 → JERBED 12:27
PROVIDERS: ADMIT Internal Medicine; ATTEND Internal Medicine
DX: T78.3XXA Angioneurotic edema, initial encounter (principal); J96.01 Acute respiratory failure with hypoxia; J96.02 Acute respiratory failure with hypercapnia; F11.20 Opioid dependence, uncomplicated; I50.32 Chronic diastolic (congestive) heart failure; F19.10 Other psychoactive substance abuse, uncomplicated; J44.9 Chronic obstructive pulmonary disease, unspecified
CPT/HCPCS: 0241U-QW; 36415; 71045-TC-FY; 80053; 82803; 83735; 84484; 85025; 85610; 85730; 86850; 86900; 86901; 93005; 93010; 99291; 99292; J0171; J1100